=== PATIENT | male | born 1935 | race Caucasian/White ===

== ENCOUNTER 2016-07-08 11:03 | Emergency (ER) | payer MEDICARE, BC ==
[2016-07-08 11:25] VITALS: BP 148/64
--- NOTE | 2016-07-08 12:18 | ERNOTE ---
Lower Extremity HPI - Narrative Date of Service: 07/08/16 - General Lower Extremities Pain: foot: right - red and warm Time Seen by Provider: 07/08/16 11:40 Source: patient Exam Limitations: no limitations - Immun/Allergies/Home Medications Immunizations: IMMUNIZATION HX Immunizations Up to Date Yes History of Influenza Vaccine Yes Hx Pneumococcal Vaccination Yes Allergies/Adverse Reactions: Allergies Allergy/AdvReac Type Severity Reaction Status Date / Time No Known Allergies Allergy Verified 07/08/16 11:25 Home Medications: HOME MEDICATIONS Albuterol Sulfate [Albuterol Sulfate 0.63 MG/3ML] 0.63 mg IH Q4H PRN 06/12/12 [ Last Taken 06/12/12] Enalapril Maleate 10 mg PO HS 06/12/12 [Last Taken 06/12/12] Isosorbide Mononitrate [Imdur] 30 mg PO DAILY 06/12/12 [Last Taken 06/12/12] Simvastatin [Zocor] 40 mg PO HS 06/12/12 [Last Taken 06/12/12] clonazePAM [Klonopin] 1 mg PO HS PRN 06/12/12 [Last Taken 06/12/12] rOPINIRole HCL [Requip] 3 mg PO HS 06/12/12 [Last Taken 06/12/12] Furosemide [Lasix] 40 mg PO DAILY #30 tablet 06/15/12 [Last Taken Unknown] Potassium Chloride [K-Dur] 20 meq PO DAILY #30 tablet 06/15/12 [Last Taken Unknown] Lansoprazole [Prevacid] 30 mg PO BID 06/07/14 [Last Taken Unknown] Warfarin Sodium [Coumadin] 7 mg PO 3XW 06/07/14 [Last Taken Unknown] Warfarin Sodium [Coumadin] 9 mg PO SUTUTHSA 06/07/14 [Last Taken Unknown] glipiZIDE [Glucotrol] 10 mg PO BID 06/07/14 [Last Taken Unknown] Acetaminophen [Tylenol] 650 mg PO QID PRN #0 tablet 01/20/15 [Last Taken Unknown ] Aspirin [Aspirin Enteric Coated] 81 mg PO DAILY 02/14/16 [Last Taken Unknown] Multivitamin [One Daily Essential] 1 each PO DAILY 02/14/16 [Last Taken Unknown] Tamsulosin HCl 0.4 mg PO DAILY 02/14/16 [Last Taken Unknown] Ammonium Lactate 07/08/16 [Last Taken Unknown] Budesonide/Formoterol Fumarate [Symbicort 160-4.5 Mcg Inhaler] 2 puff IH DAILY 07/08/16 [Last Taken Unknown] Cephalexin Monohydrate [Keflex] 500 mg PO Q12H #14 cap 07/08/16 [Last Taken Unknown] Clotrimazole [Lotrimin Cream] 15 gm TP BID 07/08/16 [Last Taken Unknown] Docusate Sodium [Colace] 100 mg PO DAILY 07/08/16 [Last Taken Unknown] Ferrous Sulfate [Iron] 325 mg PO DAILY 07/08/16 [Last Taken Unknown] Fluticasone Propionate [Flovent Diskus] 50 mcg IH DAILY 07/08/16 [Last Taken Unknown] Nitroglycerin [Nitrostat] 0.4 mg SL Q5MIN PRN 07/08/16 [Last Taken Unknown] Probenecid/Colchicine [Probenecid-Colchicine Tabs] 1 tab PO BID 07/08/16 [Last Taken Unknown] Triamcinolone Acetonide [Kenalog 0.025%] 1 appl TP BID 07/08/16 [Last Taken Unknown] Zolpidem Tartrate [Ambien] 5 mg PO HS 07/08/16 [Last Taken Unknown] - History of Present Illness Narrative: 80-year-old male presents to the emergency room for right foot swelling with increased redness and warmth. States that it is tender. Stated that he woke up and noticed it this morning. Date (Duration): 07/08/16 Occurred: this morning Location of Incident: home Method of Injury: Reports: no apparent injury Loss of Consciousness: Reports: no loss of consciousness Associated Symptoms: Denies: unable to bear weight, snapping, popping sensation , weakness Other Injuries: Reports: none Subsequent Symptoms: Denies: numbness, motor loss Prior Treament: Reports: recently seen - was at his PCP yesterday and it was swollen but not red. Review of Systems - Review of Systems Constitutional: Present: no symptoms reported EYE: Present: no symptoms reported ENT: Present: no symptoms reported Respiratory: Present: no symptoms reported Cardiology: Present: no symptoms reported Gastrointestinal/Abdominal: Present: no symptoms reported Genitourinary: Present: no symptoms reported Musculoskeletal: Present: See HPI, joint swelling Skin: Present: See HPI, rash, change in color Neurological: Present: no symptoms reported Endocrine: Present: no symptoms reported Hematologic/Lymphatic: Present: no symptoms reported Psych: Present: no symptoms reported All Other Systems: All systems neg except as marked - Patient's Past Medical History Patient History - Medical: Diabetes Type 2 Patient History - Cardiac/Respiratory: CHF, CPAP/BiPAP Home Use Patient History - Cancer: Colon, Chemotherapy history Patient History - Surgical Procedures: Cataracts, Colon Resection, Coronary Bypass Surgery, Pacemaker, Other Patient History - Other: None - Family History Father Family History - Medical: Family History - Cardiac/Respiratory: Hypertension Brother Family History - Medical: , Diabetes Type 1 Family History - Cardiac/Respiratory: Other - Social History Living Situations: home Psych History: No pertinent hx Does anyone smoke in the home?: No Smoking Status: Former smoker Have you smoked in the past 12 months: No Alcohol Use: rarely Drug Use: none - Immunizations Immunizations Up to Date: Yes Hx Pneumococcal Vaccination: Yes History of Influenza Vaccine: Yes Physical Exam - Physical Exam Narrative: right ankle and top of foot is red, warm and swollen. Good pedal pulse and cap refill General Appearance: Present: alert, no apparent distress Eye Exam: Normal inspection: bilateral Ears, Nose, Throat: Present: normal ENT inspection, normal pharynx Neck: Present: normal inspection Respiratory: Present: no respiratory distress, normal breath sounds Cardiovascular/Chest: Present: regular rate, rhythm, normal peripheral pulses Gastrointestinal/Abdominal: Present: normal bowel sounds, soft Back Exam: Present: normal range of motion Extremity Exam: Present: normal except - - right ankle/foot red, warm and swollen. BLE Edema is normal for patient. , pedal edema Neurological Exam: Present: alert, oriented, normal mood/affect, no motor/ sensory deficits Skin Exam: Present: normal color, warm/dry, skin rash Lymphatic Exam: Present: no adenopathy ED Progress - Vital Signs Vital Signs: Vital Signs 07/08/16 11:22 Temperature 36.4 C L Pulse Rate 84 Respiratory 20 Rate Blood Pressure 148/64 O2 Sat by Pulse 94 Oximetry - Progress/Reassessment Chief Complaint: Lower Extremity Pain/ Injury Progress:: Improved Departure Clinical Impression: Cellulitis Qualifiers: Site of cellulitis: extremity Site of cellulitis of extremity: lower extremity Laterality: right Qualified Code(s): L03.115 - Cellulitis of right lower limb - Departure Disposition: Home Follow Up Needed Condition: Good Instructions: Cellulitis, Adult, [id number] Additional Instructions: Continue all previous home medication. Follow up with your doctor in the next 2- 3 days. Return to the emergency room is swelling increases, it becomes more painful or redness increases. Referrals: Kenny Uribe MD [Primary Care Provider] - Prescriptions: Cephalexin Monohydrate [Keflex] 500 mg PO Q12H #14 cap
== END 2016-07-08 12:21 | disposition home or self-care (01) ==
LOC: ER 11:03
DX: L03.115 Cellulitis of right lower limb (principal); Z85.038 Personal history of other malignant neoplasm of large intestine; E11.9 Type 2 diabetes mellitus without complications; I50.9 Heart failure, unspecified

== ENCOUNTER 2016-08-24 10:39 | Inpatient (IN) | payer MEDICARE, BC ==
--- OUTSIDE RECORDS SUMMARY | 2016-08-24 10:55 | XMS REPORT | Continuity of Care Document ---
:1935 Author Organization [facility] ([facility]) Address [address] [place] [address] Phone [phone] Care Team Providers Name Role Phone Kenny Hurley Primary Care Provider Unavailable Source Comments This disclosure is being made pursuant to the Care Everywhere program, applicable federal and state laws, and may not contain all informaitonavailable regarding this patient.[facility] ([facility]) Active Allergies and Adverse Reactions No Known Allergies Current Medications Prescription Sig. Disp. Refills Start Date End Date Status enalapril 10 mg tablet Take 10 mg by mouth Active daily. lansoprazole 30 mg Take 30 mg by mouth Active capsule daily. Ropinirole 2 mg Tb24 Take by mouth at Active bedtime. simvastatin 40 mg tablet Take 40 mg by mouth Active every evening. multivitamin (MULTIPLE Take 1 Tab by mouth Active VITAMIN) tablet daily. albuterol 2.5 mg/3 mL Use 3 mL by Active inhalation solution inhalation every 4 hours as needed. isosorbide mononitrate Take 15 mg by mouth Active 30 mg CR tablet Every morning. zolpiDEM 5 mg tablet Take by mouth at Active bedtime as needed. nitroglycerin 0.[address] 0.4 mg under Active tablet the tongue every 5 minutes as needed. furosemide 40 mg tablet Take 40 mg by mouth Active daily. potassium chloride 20 take 1 tablet 10/03/2012 Active mEq tablet (20MEQ) by oral route every day with food warfarin 5 mg tablet mng by PCP 03/01/2013 Active aspirin 81 mg EC tablet Take 81 mg by mouth Active daily. clonazePAM 1 mg tablet Take 1 mg by mouth Active at bedtime. glipiZIDE 5 mg tablet Take 10 mg by mouth Active 2 times daily with meals. colchicine-probenecid Take 1 tablet by Active 0.5-500 mg per tablet mouth 2 times daily. fluticasone 50 Use 2 Sprays into Active mcg/Actuation nasal both nostrils daily. spray tamsulosin 0.4 mg Take 0.4 mg by mouth Active capsule daily. budesonide-formoterol Use 2 Puffs by Active (SYMBICORT) 160-4.5 inhalation 2 times mcg/Actuation inhaler daily. ferrous sulfate 325 mg Take 325 mg by mouth Active (65 mg iron) tablet daily. 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 3 vessel CAD rec CABG) - 01/18/1996 CV SURGERY: CV Surgery (ORNELAS to LAD, SVG to OM, SVG to RPDA) - 01/20/1996 ECHO/MUGA: Echo (Normal EF, Mild TR) - 10/14/2006 Echo (Normal EF) - 03/05/2012 ELECTROPHYSIOLOGY: Holter (Rare PVCs, Sinus William, No correlation with symptoms) - 10/01/2004 Devices (AV pacemaker implant ([employer]).) - 02/14/2008 STRESS TESTS: Pers MPI (Normal EF, Equivocal Inferior Scar vs Artifact) - 08/19/2007 Clive MPI (Normal EF, No ischemia. Apical thinning) - 03/05/2012 Hx of CABG COPD (chronic obstructive pulmonary disease) Hyperlipidemia Hypertension Diabetes mellitus Chronic atrial fibrillation, with slow ventricular response H/O: GI bleed Immunizations Name Dates Previously Given Next Due Influenza, unspecified 10/28/2006,11/19/2005 Pneumococcal, unspecified 10/28/2006,11/19/2005 Social History Tobacco Use Types Packs/Day Years Used Date Former Smoker Cigarettes 0.25 1 Alcohol Use Drinks/Week oz/Week Comments No Last Filed Vital Signs Vital Sign Reading Time Taken Blood Pressure 122/44 05/11/2016 9:56 AM EQUIPMENT VALIDATION SPECIALIST Pulse 46 05/11/2016 9:56 AM EQUIPMENT VALIDATION SPECIALIST Temperature 35.5 C (95.9 F) 04/24/2012 9:53 AM EQUIPMENT VALIDATION SPECIALIST Respiratory Rate 16 08/05/2015 2:59 PM CDT Height 1.803 m (5' 10.98") 05/11/2016 9:56 AM EQUIPMENT VALIDATION SPECIALIST Weight 93.895 kg (207 lb) 05/11/2016 9:56 AM EQUIPMENT VALIDATION SPECIALIST Body Mass Index 28.88 05/11/2016 9:56 AM EQUIPMENT VALIDATION SPECIALIST Oxygen Saturation - - Plan of Care Date Type Specialty Providers Description 10/05/2016 Appointment Heart and Vascular Gennaro Shelby MD Chief Comp: Patient [address] [place] [address] Visit [phone] (Fax) 05/19/2017 Appointment Heart and Vascular Zarina Duenas MD Chief Comp: Patient [address] [place] [address] Visit [phone] (Fax) Health Maintenance Due Date Last Done Comments Hepatitis B Vaccine (1 of 3 - Primary 1935 Series) Tdap Vaccine 1946 DIABETIC: Cholesterol 09/18/1955 Diabetic: Hdl 09/18/1955 DIABETIC: Hemoglobin A1C 09/18/1955 Diabetic: Ldl 09/18/1955 DIABETIC: Microalbumin 09/18/1955 DIABETIC: Triglycerides 09/18/1955 Td Vaccine 09/18/1955 Colonoscopy 1987 Zoster Vaccine 1997 Pneumococcal Vaccine (1 of 2 - PCV13) 2002 DIABETIC: Foot Exam 04/07/2015 DIABETIC: Retinal Eye Exam 04/07/2015 Influenza Vaccine: Seasonal Completed 10/28/2006, 11/19/2005 Results from Last 3 Months Not on file
[2016-08-24 11:06] LABS: Hematocrit 39.5 % (42.0-52.0); Hemoglobin 13.2 gm/dL (13.5-18.0); Mean Cell Volume 85.3 fl (78-100); Mean Corpuscular Hemoglobin 28.5 pg (27-31); Mean Corpuscular Hgb Conc 33.4 g/dl (32-36); Mean Platelet Volume 10.1 fl (6.0-9.5); Neutrophil # 14.6 K/mm3 (1.3-6.0); Neutrophil % 88.9 % (42-75.0); Platelet Count 137 K/mm3 (150-450); Red Blood Count 4.63 M/mm3 (4.7-6.0); Red Cell Distribution Width 13.5 % (11.5-14.0); White Blood Count 16.4 K/mm3 (4.0-10.5)
[2016-08-24 11:09] LABS: Urine Bilirubin Negative (NEGATIVE); Urine Blood 250 /ul (NEGATIVE); Urine Ketone Negative (NEGATIVE); Urine Nitrite Negative (NEGATIVE); Urine Protein 100 mg/dL (NEGATIVE); Urine Urobilinogen Normal (NORMAL)
[2016-08-24] MEDS ORDERED: ONDANSETRON 4 MG TAB.RAPDIS PO ONE (11:10)
[2016-08-24] MEDS ORDERED: NALBUPHINE HCL 20 MG/ML AMPUL IM ONE (11:10)
[2016-08-24] MEDS ORDERED: NALBUPHINE HCL 20 MG/ML AMPUL ONE (11:20)
[2016-08-24] MEDS ORDERED: ONDANSETRON 4 MG TAB.RAPDIS ONE (11:20)
[2016-08-24 11:22] LABS: Urine Appearance Cloudy; Urine Bacteria 1+; Urine Color Dark Yellow; Urine RBC >50 /hpf (0-5); Urine WBC 25-50 /hpf (0-5)
[2016-08-24 11:23] LABS: Prothrombin Time (Patient) 15.8 Seconds (9.4-11.4)
--- NOTE | 2016-08-24 11:23 | ERNOTE ---
ER Male HPI Date of Service: 08/24/16 Stated Complaint: BLOOD IN URINE Time Seen by Provider: 08/24/16 10:49 Source: patient Exam Limitations: no limitations Immunizations: IMMUNIZATION HX Immunizations Up to Date Yes History of Influenza Vaccine Yes Hx Pneumococcal Vaccination Yes Allergies/Adverse Reactions: Allergies No Known Allergies Allergy (Verified 08/24/16 10:50) Home Medications: HOME MEDICATIONS Albuterol Sulfate [Albuterol Sulfate 0.63 MG/3ML] 0.63 mg IH Q4H PRN 06/12/12 [ Last Taken 06/12/12] Enalapril Maleate 10 mg PO HS 06/12/12 [Last Taken 06/12/12] Isosorbide Mononitrate [Imdur] 30 mg PO DAILY 06/12/12 [Last Taken 06/12/12] Simvastatin [Zocor] 40 mg PO HS 06/12/12 [Last Taken 06/12/12] clonazePAM [Klonopin] 1 mg PO HS PRN 06/12/12 [Last Taken 06/12/12] rOPINIRole HCL [Requip] 3 mg PO HS 06/12/12 [Last Taken 06/12/12] Furosemide [Lasix] 40 mg PO DAILY #30 tablet 06/15/12 [Last Taken Unknown] Potassium Chloride [K-Dur] 20 meq PO DAILY #30 tablet 06/15/12 [Last Taken Unknown] Lansoprazole [Prevacid] 30 mg PO BID 06/07/14 [Last Taken Unknown] Warfarin Sodium [Coumadin] 7 mg PO 3XW 06/07/14 [Last Taken Unknown] Warfarin Sodium [Coumadin] 9 mg PO SUTUTHSA 06/07/14 [Last Taken Unknown] glipiZIDE [Glucotrol] 10 mg PO BID 06/07/14 [Last Taken Unknown] Acetaminophen [Tylenol] 650 mg PO QID PRN #0 tablet 01/20/15 [Last Taken Unknown ] Aspirin [Aspirin Enteric Coated] 81 mg PO DAILY 02/14/16 [Last Taken Unknown] Multivitamin [One Daily Essential] 1 each PO DAILY 02/14/16 [Last Taken Unknown] Tamsulosin HCl 0.4 mg PO DAILY 02/14/16 [Last Taken Unknown] Ammonium Lactate 07/08/16 [Last Taken Unknown] Budesonide/Formoterol Fumarate [Symbicort 160-4.5 Mcg Inhaler] 2 puff IH DAILY 07/08/16 [Last Taken Unknown] Clotrimazole [Lotrimin Cream] 15 gm TP BID 07/08/16 [Last Taken Unknown] Docusate Sodium [Colace] 100 mg PO DAILY 07/08/16 [Last Taken Unknown] Ferrous Sulfate [Iron] 325 mg PO DAILY 07/08/16 [Last Taken Unknown] Fluticasone Propionate [Flovent Diskus] 50 mcg IH BID 07/08/16 [Last Taken Unknown] Nitroglycerin [Nitrostat] 0.4 mg SL Q5MIN PRN 07/08/16 [Last Taken Unknown] Probenecid/Colchicine [Probenecid-Colchicine Tabs] 1 tab PO BID 07/08/16 [Last Taken Unknown] Zolpidem Tartrate [Ambien] 5 mg PO HS 07/08/16 [Last Taken Unknown] Calcium Carbonate [Calcium] 500 mg PO QID 08/24/16 [Last Taken Unknown] Magnesium 250 mg PO QID 08/24/16 [Last Taken Unknown] Triamcinolone Acetonide [Kenalog 0.5%] 1 appl TP BID 08/24/16 [Last Taken Unknown] - History of Present Illness Narrative: Pt. comes in with c/o being shaky, not feeling well, having frequency, and LUQ/ L chest pain, and hematuria for 12 hours. Pt. also states that he had a fever that he treated with motrin an hour ago. Pt. denies any other chest pain, SOB, rhinorrhea, ear pain, sore throat, muscle aches, or aggravating/ alleviating factors. Review of Systems - Review of Systems Constitutional: Present: fever, fatigue EYE: Present: no symptoms reported ENT: Present: no symptoms reported. Absent: nose congestion Respiratory: Present: no symptoms reported. Absent: shortness of breath, cough , wheezing Cardiology: Present: chest pain - L loower. Absent: palpitations, edema Gastrointestinal/Abdominal: Present: abdominal pain - LUQ. Absent: nausea, vomiting, diarrhea Genitourinary: Present: no symptoms reported Musculoskeletal: Present: no symptoms reported. Absent: back pain, joint pain Skin: Present: no symptoms reported Neurological: Present: weakness - generalized, tremors. Absent: headache, dizziness/light-headedness, numbness, tingling All Other Systems: All systems neg except as marked - Patient's Past Medical History Patient History - Medical: Diabetes Type 2 Patient History - Cardiac/Respiratory: CHF, CPAP/BiPAP Home Use, Sleep Apnea Patient History - Cancer: Colon, Chemotherapy history Patient History - Surgical Procedures: Cataracts, Colon Resection, Coronary Bypass Surgery, Pacemaker, Other Patient History - Other: None - Family History Father Family History - Medical: Family History - Cardiac/Respiratory: Hypertension Brother Family History - Medical: , Diabetes Type 1 Family History - Cardiac/Respiratory: Other - Social History Living Situations: home Psych History: No pertinent hx Does anyone smoke in the home?: No Alcohol Use: rarely Drug Use: none - Immunizations Immunizations Up to Date: Yes Hx Pneumococcal Vaccination: Yes History of Influenza Vaccine: Yes Physical Exam - Physical Exam General Appearance: Present: wd/wn, alert, no apparent distress Eye Exam: Normal inspection: bilateral, PERRL: bilateral, EOMI: bilateral Ears, Nose, Throat: Present: normal ENT inspection, normal pharynx Neck: Present: normal inspection, nontender. Absent: lymphadenopathy (R), lymphadenopathy (L) Respiratory: Present: no respiratory distress, normal breath sounds, no accessory muscle use, chest nontender, lungs clear Cardiovascular/Chest: Present: regular rate, rhythm, no murmur, normal peripheral pulses Gastrointestinal/Abdominal: Present: nondistended, soft, no organomegaly, tenderness - LUQ Back Exam: Present: normal inspection, normal range of motion, no CVA tenderness , no vertebral tenderness Extremity Exam: Present: normal inspection, non-tender, normal range of motion, no edema Neurological Exam: Present: alert, oriented, normal mood/affect, motor weakness - generalized Skin Exam: Present: cool/dry, pallor ED Progress - Date and Time Seen: Date and Time: 08/24/16 12:[address] Duenas and she recommends not transferring to other facility as she does not feel that this is terribly acute but that this should be ruled out. Discussed case with Dr Hurley and he agrees to accept pt. for admission to rule out SC and also for serious infection. 08/24/16 13:04 Pt. took a325 mg aspirin this am - Results and Orders Patient's Lab Results:: I have reviewed the patient's lab results. - Vital Signs Patient's Vital Signs:: I have reviewed the patient's vital signs. Vital Signs: Vital Signs 08/24/16 10:46 Temperature 37.1 C Pulse Rate 81 Respiratory 16 Rate Blood Pressure 203/67 - EKG EKG: other - sinus rhythm with ST depression - CT/Ultrasound CT/Ultrasound Narrative: CT abd without evidence of stone but with probable mass of L kidney and cystitis or mass of bladder. - Progress/Reassessment Chief Complaint: Genitourinary Problem Progress:: Unchanged Departure Clinical Impression: Cystitis Chest pain Qualifiers: Chest pain type: unspecified Qualified Code(s): R07.9 - Chest pain, unspecified Diabetes Qualifiers: Diabetes mellitus type: type 2 Diabetes mellitus complication status: without complication Diabetes mellitus retirement insulin use: without terminal make up operator use Qualified Code(s): E11.9 - Type 2 diabetes mellitus without complications - Departure Disposition: [facility] Referrals: Kenny Uribe MD [Primary Care Provider] -
[2016-08-24 11:24] LABS: INR 1.52 INR (0.90-1.10); Partial Thrombolplastin Time 32.7 Seconds (24-32)
[2016-08-24 11:26] LABS: ALT 30 U/L (19-67); AST 26 U/L (0-48); Albumin * 3.8 gm/dl (3.4-5.0); Alkaline Phosphatase * 114 U/L (50-170); BUN/Creatinine Ratio 26.9 (9.0-21.6); Bilirubin, Total 0.5 mg/dL (0.0-1.1); Blood Urea Nitrogen 25 mg/dL (6-23); Ca. Corrected For Albumin 8.5 mg/dL (8.4-10.2); Calcium * 8.7 mg/dL (7.9-10.9); Carbon Dioxide 29.5 mmol/L (24-32.6); Chloride 99 mmol/L (97-106); Glucose * 191 mg/dL (70-110); Potassium 4.5 mmol/L (3.4-4.6); Sodium 135 mmol/L (132-142); Total Protein 7.4 gm/dL (6.2-8.2)
[2016-08-24 11:27] LABS: Troponin I Less than 0.017 ng/ml (0.00-0.10)
[2016-08-24] MEDS ORDERED: NORMAL SALINE 500 ML IV ONE (11:39)
[2016-08-24 12:40] LABS: Hemoglobin A1C 8.1 % (4.00-6.0)
[2016-08-24] MEDS ORDERED: CIPROFLOXACIN LACTATE/D5W 400 MG/200 ML BAG IV SCH ×2 (13:00)
--- OUTSIDE RECORDS SUMMARY | 2016-08-24 13:03 | XMS REPORT | Continuity of Care Document ---
:1935 Author Organization [facility] ([facility]) Address [address] [place] [address] Phone [phone] Care Team Providers Name Role Phone Kenny Hurley Primary Care Provider Unavailable Source Comments This disclosure is being made pursuant to the Care Everywhere program, applicable federal and state laws, and may not contain all informaitonavailable regarding this patient.[facility] ([facility]) Active Allergies and Adverse Reactions No Known [...] Hematuria, gross 10/22/2011 Cardiac pacemaker in situ, [employer] Coronary artery disease Overview: Formatting of this note may be different from the original. 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 3 vessel CAD rec CABG) - 01/18/1996 CV SURGERY: CV Surgery (ORNELAS to LAD, SVG to OM, SVG to RPDA) - 01/20/1996 ECHO/MUGA: Echo (Normal EF, Mild TR) - 10/14/2006 Echo (Normal EF) - 03/05/2012 ELECTROPHYSIOLOGY: Holter (Rare PVCs, Sinus William, No correlation with symptoms) - 10/01/2004 Devices (AV pacemaker implant ([employer]).) - 02/14/2008 STRESS TESTS: Pers MPI [...] Taken Blood Pressure 122/44 05/11/2016 9:56 AM SEQUINS SPOOLER Pulse 46 05/11/2016 9:56 AM SEQUINS SPOOLER Temperature 35.5 C (95.9 F) 04/24/2012 9:53 AM SEQUINS SPOOLER Respiratory Rate 16 08/05/2015 2:59 PM CDT Height 1.803 m (5' 10.98") 05/11/2016 9:56 AM SEQUINS SPOOLER Weight 93.895 kg (207 lb) 05/11/2016 9:56 AM SEQUINS SPOOLER Body Mass Index 28.88 05/11/2016 9:56 AM SEQUINS SPOOLER Oxygen Saturation - - Plan of Care Date Type Specialty Providers Description 10/05/2016 Appointment Heart and Vascular Gnenaro Shelby MD Chief Comp: Patient [address] [place] [address] Visit [phone] (Fax) 05/19/2017 Appointment Heart and Vascular Zarina Duenas MD Chief Comp: Patient [address] [place] [address] Visit [phone] (Fax) Health Maintenance Due Date Last Done [...] Retinal Eye Exam 04/07/2015 Influenza Vaccine: Seasonal (Season Ended) 2016 10/28/2006, 11/19/2005 Results from Last 3 Months Not on file
[2016-08-24] MEDS: NORMAL SALINE 1,000 ML IV PRN ×3 (14:41→22:30)
[2016-08-24] MEDS ORDERED: NITROGLYCERIN 0.4 MG/TAB BTL SL PRN (17:43)
[2016-08-24] MEDS ORDERED: PROBENECID PO PRN (17:43)
[2016-08-24] MEDS ORDERED: TRIAMCINOLONE ACETONIDE 15 APPL TUBE TP PRN (17:43)
[2016-08-24] MEDS ORDERED: DOCUSATE SODIUM 100 MG CAPSULE PO PRN (17:43)
[2016-08-24] MEDS ORDERED: COLCHICINE PO PRN (17:43)
[2016-08-24] MEDS ORDERED: WARFARIN SODIUM 4 MG TABLET PO SCH (17:45)
[2016-08-24] MEDS ORDERED: COLCHICINE 0.6 MG TABLET PO PRN (18:12)
[2016-08-24] MEDS ORDERED: PROBENECID 500 MG TABLET PO PRN (18:13)
--- NOTE | 2016-08-24 18:13 | HP ---
Chief Complaint - Chief Complaint Date of Service: 08/24/16 Time of Service: 22:10 Chief Complaint: Febrile Illness History of Present Illness: This is a 80 y/o diabetic man with a history of TURP who came in to the [facility] ER with a complaint of being shaky, not feeling well, having frequency of uriantion , and abdominal and left lower chest pain, and hematuria for 12 hours. He also states that he had a fever of 102 last night he treated with motrin about an hour prior to coming to the [facility] ER. He denies any other chest pain, SOB, rhinorrhea, ear pain, sore throat, muscle aches, or aggravating/ alleviating factors. He noticed some blood in the urine last night. His CAT scan of the abomen MIGHT be suggestive of left pyelonephritis. His wbc count is modestly elevated. His microscopic urine is consistent with infection. He has been diaphoretic and has had shaking chills. He was somewhat disoriented through the night. Just now his respiratory rate was 32 and his temp 39.5. He is not sexually active. - Patient's Past Medical History Patient History - Medical: Diabetes Type 2 Patient History - Cardiac/Respiratory: CHF, CPAP/BiPAP Home Use, Sleep Apnea Patient History - Cancer: Colon, Chemotherapy history Patient History - Surgical Procedures: Cataracts, Colon Resection, Coronary Bypass Surgery, Pacemaker, Other Patient History - Other: None - Family History Father Family History - Medical: Family History - Cardiac/Respiratory: Hypertension Brother Family History - Medical: , Diabetes Type 1 Family History - Cardiac/Respiratory: Other - Social History Living Situations: home Abuse History: No History of abuse Psych History: No pertinent hx Does anyone smoke in the home?: No Smoking Status: Never smoker Have you smoked in the past 12 months: No Do you dip or chew tobacco: No Patient requests Smoking Cessation Consult: No Initiate information on Smoking Cessation: No Alcohol Use: rarely Drug Use: none - Immunizations Immunizations Up to Date: Yes Hx Pneumococcal Vaccination: Yes History of Influenza Vaccine: Yes Review Of Systems (GEN) - Review of Systems Generalized/Overall Review: Present: Fever, Malaise, Diaphoresis EENTM: Present: No Symptoms Reported Respiratory: Present: No Symptoms Reported Cardiac: Present: No Symptoms Reported Abdominal: Present: Nausea, Abdominal Pain Genitourinary: Present: Hematuria Musculoskeletal: Present: No Symptoms Reported Neurological: Present: No Symptoms Reported Skin: Present: No Symptoms Reported Endocrine: Present: No Symptoms Reported Misc: All systems neg except as marked Immunizations: IMMUNIZATION HX Immunizations Up to Date Yes History of Influenza Vaccine Yes Hx Pneumococcal Vaccination Yes Allergies/Adverse Reactions: Allergies Allergy/AdvReac Type Severity Reaction Status Date / Time No Known Allergies Allergy Verified 08/24/16 14:24 Home Medications: HOME MEDICATIONS Albuterol Sulfate [Albuterol Sulfate 0.63 MG/3ML] 0.63 mg IH Q4H PRN 06/12/12 [ Last Taken 06/12/12] Enalapril Maleate 10 mg PO HS 06/12/12 [Last Taken 06/12/12] Simvastatin [Zocor] 40 mg PO HS 06/12/12 [Last Taken 06/12/12] clonazePAM [Klonopin] 1 mg PO HS 06/12/12 [Last Taken 06/12/12] Furosemide [Lasix] 40 mg PO DAILY #30 tablet 06/15/12 [Last Taken Unknown] Potassium Chloride [K-Dur] 20 meq PO DAILY #30 tablet 06/15/12 [Last Taken Unknown] Lansoprazole [Prevacid] 30 mg PO BID 06/07/14 [Last Taken Unknown] Warfarin Sodium [Coumadin] 7 mg PO MOWEFR 06/07/14 [Last Taken Unknown] Warfarin Sodium [Coumadin] 9 mg PO SUTUTHSA 06/07/14 [Last Taken Unknown] glipiZIDE [Glucotrol] 10 mg PO BIDAC 06/07/14 [Last Taken Unknown] Acetaminophen [Tylenol] 650 mg PO QID PRN #0 tablet 01/20/15 [Last Taken Unknown ] Aspirin [Aspirin Enteric Coated] 81 mg PO DAILY 02/14/16 [Last Taken Unknown] Multivitamin [One Daily Essential] 1 each PO DAILY 02/14/16 [Last Taken Unknown] Ammonium Lactate 1 appl TP BID 07/08/16 [Last Taken Unknown] Budesonide/Formoterol Fumarate [Symbicort 160-4.5 Mcg Inhaler] 2 puff IH BID [Last Taken Unknown] Clotrimazole [Lotrimin Cream] 15 gm TP BID 07/08/16 [Last Taken Unknown] Docusate Sodium [Colace] 200 mg PO HS PRN 07/08/16 [Last Taken Unknown] Ferrous Sulfate [Iron] 325 mg PO DAILY 07/08/16 [Last Taken Unknown] Fluticasone Propionate [Flovent Diskus] 50 mcg IH BID 07/08/16 [Last Taken Unknown] Nitroglycerin [Nitrostat] 0.4 mg SL Q5MIN PRN 07/08/16 [Last Taken Unknown] Zolpidem Tartrate [Ambien] 5 mg PO HS 07/08/16 [Last Taken Unknown] Calcium Carbonate [Calcium] 1,250 mg PO QID 08/24/16 [Last Taken Unknown] Isosorbide Mononitrate [Isosorbide Mononitrate ER] 15 mg PO DAILY 08/24/16 [ Last Taken Unknown] Magnesium 250 mg PO QID 08/24/16 [Last Taken Unknown] Probenecid/Colchicine [Probenecid-Colchicine Tabs] 1 tab PO BID PRN 08/24/16 [ Last Taken Unknown] Ropinirole HCl 5 mg PO HS 08/24/16 [Last Taken Unknown] Tamsulosin HCl 0.4 mg PO DAILY 08/24/16 [Last Taken Unknown] Triamcinolone Acetonide [Kenalog 0.025%] 1 appl TP BID PRN 08/24/16 [Last Taken Unknown] Exam - Exam Vital Signs: Vital Signs - Last Taken Selected Entries 08/24/16 12:57 Pulse Rate 72 Respiratory 19 Rate Blood Pressure 154/59 O2 Sat by Pulse 94 Oximetry Oxygen Delivery Room Air Method Constitutional: Present: Alert, Oriented x3, Cooperative, Well developed, Well nourished, No distress Eye Exam: bilateral eye: normal inspection, PERRL, EOMI Neck: Present: normal inspection Back Exam: Present: normal inspection, CVA tenderness (L) Respiratory: Present: lungs clear, no respiratory distress Cardiovascular/Chest: Present: normal peripheral pulses, regular rate, rhythm, no chest tenderness Abdomen: Present: Normal bowel sounds, soft, nontender, nondistended, no rebound tenderness, no hepatospenomegaly, no masses Extremity: Present: normal inspection, no pedal edema Skin Exam: Present: normal color, warm/dry, no cyanosis Neurologic: Present: alert, oriented x 3 Appearance: Present: appropriate appearance, appropriate insight, neat Eye contact: Present: cooperative, good eye contact, normal speech Thoughts: Present: normal thought pattern Diagnostic Studies: Laboratory Results WBC 16.4 K/mm3 (4.0-10.5) H 08/24/16 11:00 RBC 4.63 M/mm3 (4.7-6.0) L 08/24/16 11:00 Hgb 13.2 gm/dL (13.5-18.0) L 08/24/16 11:00 Hct 39.5 % (42.0-52.0) L 08/24/16 11:00 MCV 85.3 fl (78-100) 08/24/16 11:00 MCH 28.5 pg (27-31) 08/24/16 11:00 MCHC 33.4 g/dl (32-36) 08/24/16 11:00 RDW 13.5 % (11.5-14.0) 08/24/16 11:00 Plt Count 137 K/mm3 (150-450) L 08/24/16 11:00 MPV 10.1 fl (6.0-9.5) H 08/24/16 11:00 Immature Gran % (Auto) 0.50 % (0.001-0.429) H 08/24/16 11:00 Immature Gran # (Auto) 0.08 K/mm3 (0.000-0.0310) H 08/24/16 11:00 Neutrophils % 88.9 % (42-75.0) H 08/24/16 11:00 Lymphocytes % 4.8 % (20-51) L 08/24/16 11:00 Monocytes % 5.2 % (0.0-9) 08/24/16 11:00 Eosinophils % 0.4 % (0.0-3.0) 08/24/16 11:00 Basophils % 0.2 % (0.0-1.0) 08/24/16 11:00 Nucleated RBC % 0.0 k/mm3 (0-1) 08/24/16 11:00 Neutrophils # 14.6 K/mm3 (1.3-6.0) H 08/24/16 11:00 Lymphocytes # 0.8 k/mm3 (1.5-3.5) L 08/24/16 11:00 Monocytes # 0.9 k/mm3 (0.0-1.0) 08/24/16 11:00 Eosinophils # 0.1 k/mm3 (0.0-0.7) 08/24/16 11:00 Absolute Basophils 0.0 k/mm3 (0.0-0.1) 08/24/16 11:00 PT 15.8 Seconds (9.4-11.4) H 08/24/16 11:00 INR (Anticoag Therapy) 1.52 INR (0.90-1.10) H 08/24/16 11:00 PTT (Mary Grace) 32.7 Seconds (24-32) H 08/24/16 11:00 Sodium 135 mmol/L (132-142) 08/24/16 11:00 Plasma Sodium 136 mmol/L (130-142) 08/24/16 11:00 Potassium 4.5 mmol/L (3.4-4.6) 08/24/16 11:00 Chloride 99 mmol/L (97-106) 08/24/16 11:00 Carbon Dioxide 29.5 mmol/L (24-32.6) 08/24/16 11:00 Anion Gap 11.0 mmol/L (6.8-13.8) 08/24/16 11:00 BUN 25 mg/dL (6-23) H 08/24/16 11:00 Creatinine 0.93 mg/dL (0.4-1.4) 08/24/16 11:00 Est GFR (Non-Af Amer) 84 mL/min (60-130) D 08/24/16 11:00 BUN/Creatinine Ratio 26.9 (9.0-21.6) H 08/24/16 11:00 Random Glucose 191 mg/dL (70-110) H 08/24/16 11:00 Mean Blood Glucose 184 mg/dL 08/24/16 11:00 Hemoglobin A1c 8.1 % (4.00-6.0) H 08/24/16 11:00 Lactic Acid, Venous 1.4 mmol/L (0.4-1.9) 08/24/16 11:00 Calcium 8.7 mg/dL (7.9-10.9) 08/24/16 11:00 Calcium Adj for Albumin 8.5 mg/dL (8.4-10.2) 08/24/16 11:00 Total Bilirubin 0.5 mg/dL (0.0-1.1) 08/24/16 11:00 AST 26 U/L (0-48) 08/24/16 11:00 ALT 30 U/L (19-67) 08/24/16 11:00 Alkaline Phosphatase 114 U/L (50-170) 08/24/16 11:00 Troponin I 0.031 ng/ml (0.00-0.10) 08/24/16 17:02 Total Protein 7.4 gm/dL (6.2-8.2) 08/24/16 11:00 Albumin 3.8 gm/dl (3.4-5.0) 08/24/16 11:00 Urine Color Dark yellow 08/24/16 11:00 Urine Appearance Cloudy 08/24/16 11:00 Urine pH 5.0 pH (5.0-7.0) 08/24/16 11:00 Ur Specific [place] 1.020 SP.GR. (1.005-1.030) 08/24/16 11:00 Urine Protein 100 mg/dL (NEGATIVE) H 08/24/16 11:00 Urine Glucose (UA) Negative mg/dL (NEGATIVE) 08/24/16 11:00 Urine Ketones Negative mg/dL (NEGATIVE) 08/24/16 11:00 Urine Blood 250 /ul (NEGATIVE) H 08/24/16 11:00 Urine Nitrate Negative (NEGATIVE) 08/24/16 11:00 Urine Bilirubin Negative mg/dl (NEGATIVE) 08/24/16 11:00 Prot Sulfosalicylic Acd 3+ mg/dL (0) H 08/24/16 11:00 Urine Urobilinogen Normal EU/dl (NORMAL) 08/24/16 11:00 Ur Leukocyte Esterase 100 /ul (NEGATIVE) H 08/24/16 11:00 Urine RBC >50 /hpf (0-5) H 08/24/16 11:00 Urine WBC 25-50 /hpf (0-5) H 08/24/16 11:00 Ur Epithelial Cells 5-10 /hpf (0-5) H 08/24/16 11:00 Urine Bacteria 1+ (NONE) H 08/24/16 11:00 Urine Culture Comments Culture to follow 08/24/16 11:00 Assessment/Plan - Narrative Narrative: IV antibiotics. Fluids. Wait for cultures. Follow labs. Estimate 3 days in hospital - Assessment/Plan (1) Pyelonephritis Assessment: Follow labs. await cultures. IV antibiotics. Problem: Acute (2) Diabetes Problem: Chronic Qualifiers: Diabetes mellitus type: type 2 Diabetes mellitus complication status: without complication Diabetes mellitus care home insulin use: without care home use Qualified Code(s): E11.9 - Type 2 diabetes mellitus without complications (3) Afib Problem: Chronic (4) BPH (benign prostatic hyperplasia) Problem: Chronic (5) CHF (congestive heart failure) Problem: Chronic (6) HTN (hypertension) Problem: Chronic (7) BENJAMIN (obstructive sleep apnea) Problem: Chronic (8) Pulmonary hypertension Problem: Chronic
[2016-08-24] MEDS: WARFARIN SODIUM 5 MG, WARFARIN SODIUM 4 MG PO SCH ×2 (18:59)
[2016-08-24] MEDS: ENOXAPARIN SODIUM 40 MG/0.4 ML SYRG SC SCH (18:59)
[2016-08-24] MEDS: BUDESONIDE 0.5 MG/2 ML VIAL.NEB IH SCH (20:57)
[2016-08-24] MEDS ORDERED: ENALAPRIL MALEATE 5 MG TABLET PO SCH (21:00)
[2016-08-24] MEDS: ACETAMINOPHEN 325 MG TABLET PO PRN (21:13)
[2016-08-24] MEDS: FLUTICASONE/SALMETEROL 14 PUFF DISK.W.DEV IH SCH (21:14)
[2016-08-24] MEDS: rOPINIRole HCL 1 MG TABLET PO SCH (21:15)
[2016-08-24] MEDS: MAGNESIUM OXIDE 400 MG TABLET PO SCH (21:16)
[2016-08-24] MEDS: CALCIUM CARBONATE 500 MG TAB.CHEW PO SCH (21:17)
[2016-08-24] MEDS: CLOTRIMAZOLE 15 APPL TUBE TP SCH (21:19)
[2016-08-24] MEDS: PANTOPRAZOLE SODIUM 40 MG TABLET.EC PO SCH (21:20)
[2016-08-24] MEDS: SIMVASTATIN 40 MG TABLET PO SCH (21:20)
[2016-08-24] MEDS: AMMONIUM LACTATE 225 APPL BTL TP SCH (21:21)
[2016-08-24] MEDS: clonazePAM 1 MG TABLET PO SCH (21:24)
[2016-08-24] MEDS: ZOLPIDEM TARTRATE 5 MG TABLET PO SCH (21:24)
[2016-08-24] MEDS: ALBUTEROL SULFATE 2.5 MG/3 ML VIAL.NEB IH PRN (21:42)
[2016-08-24] MEDS ORDERED: FUROSEMIDE 10 MG/ML VIAL IV ONE (23:56)
--- NOTE | 2016-08-25 00:38 | PN ---
Progess Note - Interim Narrative: 08/25/16 00:37 report received that pt's sbp 87-90. 1L ns bolus ordered off of sepsis bolus order. sg
[2016-08-25] MEDS: NORMAL SALINE 1,000 ML IV PRN ×3 (01:13→13:07)
[2016-08-25 04:17] LABS: Hematocrit 35.2 % (42.0-52.0); Hemoglobin 11.3 gm/dL (13.5-18.0); Mean Cell Volume 88.2 fl (78-100); Mean Corpuscular Hemoglobin 28.3 pg (27-31); Mean Corpuscular Hgb Conc 32.1 g/dl (32-36); Mean Platelet Volume 10.9 fl (6.0-9.5); Platelet Count 121 K/mm3 (150-450); Red Blood Count 3.99 M/mm3 (4.7-6.0); Red Cell Distribution Width 14.1 % (11.5-14.0); White Blood Count 25.1 K/mm3 (4.0-10.5)
[2016-08-25 04:22] LABS: Total Cells Counted 100
[2016-08-25 04:33] LABS: Hypersegmented Polys 2+; Monocyte 5 % (0-9); Neutrophil 84 % (42-75); Neutrophil # 21.1 K/mm3 (1.3-6.0); Platelet Estimate Normal (NORMAL); Toxic Granulation 2+
[2016-08-25 04:34] LABS: Lymphocyte 11 % (20-51)
[2016-08-25 04:39] LABS: Albumin * 2.7 gm/dl (3.4-5.0); Anion Gap 13.7 mmol/L (6.8-13.8); BUN/Creatinine Ratio 20.6 (9.0-21.6); Bilirubin, Total 0.6 mg/dL (0.0-1.1); Ca. Corrected For Albumin 8.3 mg/dL (8.4-10.2); Calcium * 7.6 mg/dL (7.9-10.9); Carbon Dioxide 23.3 mmol/L (24-32.6); Total Protein 5.8 gm/dL (6.2-8.2)
[2016-08-25] MEDS: BUDESONIDE 0.5 MG/2 ML VIAL.NEB IH SCH ×2 (06:01→18:21)
[2016-08-25] MEDS: glipiZIDE 10 MG TABLET PO SCH ×2 (07:11→17:08)
[2016-08-25] MEDS: PANTOPRAZOLE SODIUM 40 MG TABLET.EC PO SCH ×2 (07:11→20:59)
[2016-08-25] MEDS: INSULIN LISPRO 100 UNITS/ML VIAL SC SCH ×4 (07:15→21:09)
[2016-08-25] MEDS ORDERED: POTASSIUM CHLORIDE 20 MEQ TABLET.SA PO SCH (09:00)
[2016-08-25] MEDS: FLUTICASONE/SALMETEROL 14 PUFF DISK.W.DEV IH SCH ×2 (09:06→20:56)
[2016-08-25] MEDS: TAMSULOSIN HCL 0.4 MG CAP.SR.24H PO SCH (09:07)
[2016-08-25] MEDS: FERROUS SULFATE 325 MG TABLET PO SCH (09:07)
[2016-08-25] MEDS: ISOSORBIDE MONONITRATE 30 MG TAB.SR.24H PO SCH (09:07)
[2016-08-25] MEDS: ASPIRIN 81 MG TABLET.DR PO SCH (09:07)
[2016-08-25] MEDS: CLOTRIMAZOLE 15 APPL TUBE TP SCH ×2 (09:08→21:01)
[2016-08-25] MEDS: FUROSEMIDE 40 MG TABLET PO SCH (09:08)
[2016-08-25] MEDS: MAGNESIUM OXIDE 400 MG TABLET PO SCH ×4 (09:08→20:59)
[2016-08-25] MEDS: AMMONIUM LACTATE 225 APPL BTL TP SCH ×2 (09:08→21:01)
[2016-08-25] MEDS: MULTIVITAMINS 1 CAP CAPSULE PO SCH (09:08)
[2016-08-25] MEDS: CALCIUM CARBONATE 500 MG TAB.CHEW PO SCH ×4 (09:09→20:58)
[2016-08-25] MEDS: AMPICILLIN SODIUM 2,000 MG in NORMAL SALINE 100 ML IV SCH ×3 (13:05→23:58)
[2016-08-25] MEDS ORDERED: WARFARIN SODIUM 5 MG, WARFARIN SODIUM 2 MG PO SCH ×2 (17:00)
[2016-08-25] MEDS: ENOXAPARIN SODIUM 40 MG/0.4 ML SYRG SC SCH (17:08)
[2016-08-25] MEDS ORDERED: WARFARIN SODIUM 4 MG TABLET PO SCH (17:43)
[2016-08-25] MEDS: ALBUTEROL SULFATE 2.5 MG/3 ML VIAL.NEB IH PRN (18:22)
--- NOTE | 2016-08-25 18:58 | PN ---
Subjective - Date and Time Seen Date: 08/25/16 Time: 07:00 Subjective Narrative: Feels better, but wbc count higher this morning, and blood pressure dropped last night, requiring additional fluid bolus. Lactic acid level went up and procalcitonin level went up. Patient feels a little better, but last night I put him into an acute bed because he met pSOFA criteria for sepsis, with a respiratory rate of 32 and a history of confusion. He looked ill. Source of infection, urinary tract. Diagnosis, UTI, pyelonephritis and sepsis. Now this morning, looks more like serious sepsis, with a gram positive organism and a gram negative. Will add Ampicillin to the treatment. Will probably be here three days. Objective - Review of Systems Generalized/Overall Review: Reports: Malaise EENTM: Reports: No Symptoms Reported Respiratory: Reports: No Symptoms Reported Cardiac: Reports: Chest Pain Abdominal: Reports: No Symptoms Reported Genitourinary Symptoms: Reports: Frequency Musculoskeletal Complaints: Reports: No Symptoms Reported Neurological: Reports: No Symptoms Reported Skin: Reports: No Symptoms Reported Endocrine: Reports: No Symptoms Reported Misc: All systems neg except as marked - Vitals Vitals: Last Vital Signs Selected Entries 08/25/16 06:27 Temperature 36.9 C Temperature Temporal Artery Source Scan Pulse Rate 71 Respiratory 20 Rate Respiratory Normal Depth Blood Pressure 109/51 Blood Pressure Supine Position O2 Sat by Pulse 94 Oximetry Oxygen Delivery Room Air Method - Abnormal Lab Findings Abnormal Lab Findings: Abnormal Lab Results 08/25/16 08/25/16 08/25/16 Range/Units 00:18 04:16 04:16 WBC 25.1 H D (4.0-10.5) K/mm3 RBC 3.99 L (4.7-6.0) M/mm3 Hgb 11.3 L (13.5-18.0) gm/dL Hct 35.2 L (42.0-52.0) % RDW 14.1 H (11.5-14.0) % Plt Count 121 L (150-450) K/mm3 MPV 10.9 H (6.0-9.5) fl Neutrophils % (Manual) 84 H (42-75) % Lymphocytes % (Manual) 11 L (20-51) % Neutrophils # (Manual) 21.1 H (1.3-6.0) K/mm3 Monocytes # (Manual) 1.3 H (0.0-1.0) k/mm3 Potassium 5.0 H (3.4-4.6) mmol/L Carbon Dioxide 23.3 L (24-32.6) mmol/L BUN 34 H (6-23) mg/dL Creatinine 1.65 H D (0.4-1.4) mg/dL Est GFR (Non-Af Amer) 43 L D (60-130) mL/min Random Glucose 248 H (70-110) mg/dL Lactic Acid, Venous 2.2 H* (0.4-1.9) mmol/L Calcium 7.6 L (7.9-10.9) mg/dL Calcium Adj for Albumin 8.3 L (8.4-10.2) mg/dL Total Protein 5.8 L (6.2-8.2) gm/dL Albumin 2.7 L (3.4-5.0) gm/dl - Exam Constitutional: Present: Alert, Oriented x3, Cooperative, Well developed, Well nourished, No distress ENT Exam: Present: normal ENT inspection, hearing grossly normal, TMs normal Neck: Present: normal inspection Respiratory: Present: lungs clear, no respiratory distress Cardiovascular/Chest: Present: normal peripheral pulses, regular rate, rhythm, no chest tenderness Abdomen: Present: Normal bowel sounds, soft, nondistended, no rebound tenderness , no hepatospenomegaly, no masses, tender Extremity: Present: normal range of motion, no pedal edema Skin Exam: Present: normal color, warm/dry, no cyanosis Neurologic: Present: alert, oriented x 3 Appearance: Present: appropriate appearance, appropriate insight, neat, no memory impairment Eye contact: Present: cooperative, good eye contact, normal speech Thoughts: Present: normal thought pattern, no apparent hallucination Assessment/Plan Plan Narrative: Add Ampicillen. Continue fluids. Follow labs. - Problems/Diagnosis (1) Pyelonephritis Problem: Acute (2) Diabetes Problem: Chronic Qualifiers: Diabetes mellitus type: type 2 Diabetes mellitus complication status: without complication Diabetes mellitus maintenance mechanic millwright insulin use: without maintenance mechanic millwright use Qualified Code(s): E11.9 - Type 2 diabetes mellitus without complications (3) Afib Problem: Chronic (4) BPH (benign prostatic hyperplasia) Problem: Chronic (5) CHF (congestive heart failure) Problem: Chronic (6) HTN (hypertension) Problem: Chronic (7) BENJAMIN (obstructive sleep apnea) Problem: Chronic (8) Pulmonary hypertension Problem: Chronic
--- NOTE | 2016-08-25 19:08 | PN ---
Progess Note - Interim Narrative: 08/25/16 19:07 ADD DIAGNOSIS: DIASTOLIC DYSFUNCTION
[2016-08-25] MEDS: SIMVASTATIN 40 MG TABLET PO SCH (20:58)
[2016-08-25] MEDS: rOPINIRole HCL 1 MG TABLET PO SCH (20:59)
[2016-08-25] MEDS: clonazePAM 1 MG TABLET PO SCH (21:08)
[2016-08-25] MEDS: ZOLPIDEM TARTRATE 5 MG TABLET PO SCH (21:08)
[2016-08-25] MEDS ORDERED: FUROSEMIDE 10 MG/ML VIAL IV ONE ×2 (22:10)
[2016-08-25] MEDS ORDERED: FUROSEMIDE 10 MG/ML VIAL ONE (22:29)
[2016-08-25] MEDS: ACETAMINOPHEN 325 MG TABLET PO PRN (22:49)
[2016-08-26] MEDS ORDERED: LIDOCAINE HCL 10 APPL CARTRIDGE TP ONE (00:19)
--- NOTE | 2016-08-26 00:56 | PN ---
<Anny Shahid - Last Filed: 08/26/16 00:23> Subjective - Date and Time Seen Date: 08/26/16 Time: 00:23 Subjective Narrative: sleepy. unable to void. was incontinent of urine earlier today. unable to use urinal consistently. unsteady and weak when up at bedside. sats dropping to 80% on cpap - RT had to increase O2 to 3L bleed into cpap. I/O +3000 ml due to IVF from sepsis / blood pressure drop last night. weight up at least 2 kg in 2 days. Objective - Review of Systems Generalized/Overall Review: Reports: Weakness, Fever, Fatigue EENTM: Reports: No Symptoms Reported Respiratory: Reports: Shortness of Breath Cardiac: Reports: Edema. Denies: Chest Pain Abdominal: Reports: No Symptoms Reported Genitourinary Symptoms: Reports: Incontinent, Retention Musculoskeletal Complaints: Reports: No Symptoms Reported Neurological: Reports: No Symptoms Reported Skin: Reports: No Symptoms Reported Endocrine: Reports: No Symptoms Reported Misc: All systems neg except as marked - Vitals Vitals: Last Vital Signs Temp 38.0 C H 08/25/16 23:09 Pulse 73 08/25/16 23:09 Resp 18 08/25/16 23:09 BP 113/48 08/25/16 22:55 Pulse Ox 90 08/25/16 23:09 - Abnormal Lab Findings Abnormal Lab Findings: Abnormal Lab Results 08/25/16 08/25/16 08/25/16 Range/Units 00:18 04:16 04:16 WBC 25.1 H D (4.0-10.5) K/mm3 RBC 3.99 L (4.7-6.0) M/mm3 Hgb 11.3 L (13.5-18.0) gm/dL Hct 35.2 L (42.0-52.0) % RDW 14.1 H (11.5-14.0) % Plt Count 121 L (150-450) K/mm3 MPV 10.9 H (6.0-9.5) fl Neutrophils % (Manual) 84 H (42-75) % Lymphocytes % (Manual) 11 L (20-51) % Neutrophils # (Manual) 21.1 H (1.3-6.0) K/mm3 Monocytes # (Manual) 1.3 H (0.0-1.0) k/mm3 Potassium 5.0 H (3.4-4.6) mmol/L Carbon Dioxide 23.3 L (24-32.6) mmol/L BUN 34 H (6-23) mg/dL Creatinine 1.65 H D (0.4-1.4) mg/dL Est GFR (Non-Af Amer) 43 L D (60-130) mL/min Random Glucose 248 H (70-110) mg/dL Lactic Acid, Venous 2.2 H* (0.4-1.9) mmol/L Calcium 7.6 L (7.9-10.9) mg/dL Calcium Adj for Albumin 8.3 L (8.4-10.2) mg/dL Total Protein 5.8 L (6.2-8.2) gm/dL Albumin 2.7 L (3.4-5.0) gm/dl - Exam Constitutional: Present: Alert, Cooperative, Mild distress, Elderly ENT Exam: Present: hearing grossly normal Neck: Present: full range of motion, supple Breasts: Present: Exam deferred Respiratory: Present: crackles - bases, rhonchi Cardiovascular/Chest: Present: normal peripheral pulses, JVD, irregularly irregular Abdomen: Present: soft, nontender, nondistended, obese /Rectal: Present: Exam deferred Extremity: Present: non-tender, lower extremity edema Skin Exam: Present: warm/dry, no cyanosis, pallor Assessment/Plan Plan Narrative: Pylonephritis - originally started on cipro iv but this was stopped 6 due to worsening infection with developing sepsis. - Currently on - Rocephin 2 gm iv daily - Day #3 - Ampicillin 2000 mg iv q 6 hours - Day #2 - Urine culture prelim shows - 1. alpha hemolytic strep - 2. gram negative bacilli - await final urine culture. Sepsis - Source of infection: urine (UTI/pylonephritis) - prelim urine culture shows both alpha hemolytic strep and gram negative bacilli - await final urine culture. - currently on; - Rocephin 2 gm iv daily - Day #3 - Ampicillin 2000 mg iv q 6 hours - Day #2 - pt received sepsis bolus of 30 ml/kg night after admission - lactic acid originally trended up but then went down - 2.0 --> 2.2 --> 1.9 - both sets of prelim blood cultures are negative - was hypotensive night after admission but this has improved with sepsis bolus CHF / diastolic dysfunction - currently in acute on chronic CHF due to +3000 I/Os from sepsis bolus. - lasix 60 mg iv given overnight - monitor output closely - may need additional lasix if does not respond to this dose - oxygen sats dropped and pt needed 3 liters of O2 bled into cpap overnight. DM - accu-checks QID - sliding scale insulin as needed. - blood sugar likely elevated due to sepsis. afib - chronic, on coumadin - monitor INR. - telemetry HTN - vital signs q 4 hour - watch bp closely, especially in light of the sepsis. BENJAMIN - cpap while in hospital - cont pulse ox pulmonary HTN - will also make pt more likely to fluid overload, especially in conjunction with chronic CHF and diastolic dysfunction. - daily weights - strict I&Os. Code status: Full code VTE: lovenox gi proph: protonix bid - Problems/Diagnosis (1) Diastolic dysfunction Problem: Chronic (2) Sepsis Problem: Acute QualifierTitle: Sepsis type: sepsis due to unspecified organism Qualified Code(s): A41.9 - Sepsis, unspecified organism (3) Pyelonephritis Problem: Acute (4) Diabetes Problem: Chronic QualifierTitle: Diabetes mellitus type: type 2 Diabetes mellitus complication status: without complication Diabetes mellitus rat exterminator insulin use: without rat exterminator use Qualified Code(s): E11.9 - Type 2 diabetes mellitus without complications (5) Afib Problem: Chronic QualifierTitle: Atrial fibrillation type: chronic Qualified Code(s): I48.2 - Chronic atrial fibrillation (6) BPH (benign prostatic hyperplasia) Problem: Chronic QualifierTitle: Lower urinary tract symptom presence: presence of symptoms unspecified Qualified Code(s): N40.0 - Benign prostatic hyperplasia without lower urinary tract symptoms (7) CHF (congestive heart failure) Problem: Chronic QualifierTitle: Congestive heart failure type: diastolic Congestive heart failure chronicity: acute on chronic Qualified Code(s): I50.33 - Acute on chronic diastolic (congestive) heart failure (8) HTN (hypertension) Problem: Chronic QualifierTitle: Hypertension type: essential hypertension Qualified Code( s): I10 - Essential (primary) hypertension (9) BENJAMIN (obstructive sleep apnea) Problem: Chronic (10) Pulmonary hypertension Problem: Chronic <WengerKeller,Kenny - Last Filed: 08/26/16 17:01> Subjective Subjective Narrative: Became organ system involvement severely septic last night, severely septic. Needed additional fluid boluses. Responded well. I directly supervised our nurse practitioner hospitalist in all of her care for this patient. Objective - Vitals Vitals: Last Vital Signs Temp 36.4 C L 08/26/16 14:26 Pulse 81 08/26/16 14:26 Resp 20 08/26/16 14:26 BP 128/51 08/26/16 14:26 Pulse Ox 94 08/26/16 14:26 - Abnormal Lab Findings Abnormal Lab Findings: Abnormal Lab Results 08/26/16 08/26/16 08/26/16 Range/Units 05:32 05:32 05:32 WBC 18.2 H D (4.0-10.5) K/mm3 RBC 3.72 L (4.7-6.0) M/mm3 Hgb 10.4 L (13.5-18.0) gm/dL Hct 32.6 L (42.0-52.0) % MCHC 31.9 L (32-36) g/dl RDW 14.2 H (11.5-14.0) % Plt Count 112 L (150-450) K/mm3 MPV 10.9 H (6.0-9.5) fl Immature Gran % (Auto) 2.60 H (0.001-0.429) % Immature Gran # (Auto) 0.47 H (0.000-0.0310) K/mm3 Neutrophils % 85.7 H (42-75.0) % Lymphocytes % 4.7 L (20-51) % Neutrophils # 15.6 H (1.3-6.0) K/mm3 Lymphocytes # 0.9 L (1.5-3.5) k/mm3 Monocytes # 1.2 H (0.0-1.0) k/mm3 PT (9.4-11.4) Seconds INR (Anticoag Therapy) (0.90-1.10) INR BUN 30 H (6-23) mg/dL BUN/Creatinine Ratio 27.5 H (9.0-21.6) Random Glucose 146 H D (70-110) mg/dL Total Protein 6.1 L (6.2-8.2) gm/dL Albumin 2.7 L (3.4-5.0) gm/dl Procalcitonin 3.06 H (0.05-0.50) ng/mL 08/26/16 Range/Units 06:00 WBC (4.0-10.5) K/mm3 RBC (4.7-6.0) M/mm3 Hgb (13.5-18.0) gm/dL Hct (42.0-52.0) % MCHC (32-36) g/dl RDW (11.5-14.0) % Plt Count (150-450) K/mm3 MPV (6.0-9.5) fl Immature Gran % (Auto) (0.001-0.429) % Immature Gran # (Auto) (0.000-0.0310) K/mm3 Neutrophils % (42-75.0) % Lymphocytes % (20-51) % Neutrophils # (1.3-6.0) K/mm3 Lymphocytes # (1.5-3.5) k/mm3 Monocytes # (0.0-1.0) k/mm3 PT 22.5 H (9.4-11.4) Seconds INR (Anticoag Therapy) 2.16 H (0.90-1.10) INR BUN (6-23) mg/dL BUN/Creatinine Ratio (9.0-21.6) Random Glucose (70-110) mg/dL Total Protein (6.2-8.2) gm/dL Albumin (3.4-5.0) gm/dl Procalcitonin (0.05-0.50) ng/mL Assessment/Plan - Problems/Diagnosis (1) Pyelonephritis Problem: Acute (2) Diabetes Problem: Chronic Qualifiers: Diabetes mellitus type: type 2 Diabetes mellitus complication status: without complication Diabetes mellitus rat exterminator insulin use: without fdc use Qualified Code(s): E11.9 - Type 2 diabetes mellitus without complications (3) Afib Problem: Chronic Qualifiers: Atrial fibrillation type: chronic Qualified Code(s): I48.2 - Chronic atrial fibrillation (4) BPH (benign prostatic hyperplasia) Problem: Chronic Qualifiers: Lower urinary tract symptom presence: presence of symptoms unspecified Qualified Code(s): N40.0 - Benign prostatic hyperplasia without lower urinary tract symptoms (5) CHF (congestive heart failure) Problem: Chronic Qualifiers: Congestive heart failure type: diastolic Congestive heart failure chronicity: acute on chronic Qualified Code(s): I50.33 - Acute on chronic diastolic (congestive) heart failure (6) HTN (hypertension) Problem: Chronic Qualifiers: Hypertension type: essential hypertension Qualified Code(s): I10 - Essential (primary) hypertension (7) BENJAMIN (obstructive sleep apnea) Problem: Chronic (8) Pulmonary hypertension Problem: Chronic
[2016-08-26] MEDS: AMPICILLIN SODIUM 2,000 MG in NORMAL SALINE 100 ML IV SCH ×3 (05:10→17:29)
[2016-08-26 05:43] LABS: Hematocrit 32.6 % (42.0-52.0); Hemoglobin 10.4 gm/dL (13.5-18.0); Mean Cell Volume 87.6 fl (78-100); Mean Corpuscular Hgb Conc 31.9 g/dl (32-36); Mean Platelet Volume 10.9 fl (6.0-9.5); Neutrophil # 15.6 K/mm3 (1.3-6.0); Neutrophil % 85.7 % (42-75.0); Platelet Count 112 K/mm3 (150-450); Red Blood Count 3.72 M/mm3 (4.7-6.0); Red Cell Distribution Width 14.2 % (11.5-14.0); White Blood Count 18.2 K/mm3 (4.0-10.5)
[2016-08-26] MEDS: BUDESONIDE 0.5 MG/2 ML VIAL.NEB IH SCH ×2 (06:09→19:10)
[2016-08-26] MEDS: ALBUTEROL SULFATE 2.5 MG/3 ML VIAL.NEB IH PRN ×3 (06:10→19:11)
[2016-08-26 06:18] LABS: Albumin * 2.7 gm/dl (3.4-5.0); BUN/Creatinine Ratio 27.5 (9.0-21.6); Bilirubin, Total 0.3 mg/dL (0.0-1.1); Ca. Corrected For Albumin 8.7 mg/dL (8.4-10.2); Carbon Dioxide 28.4 mmol/L (24-32.6); Total Protein 6.1 gm/dL (6.2-8.2)
[2016-08-26 06:42] LABS: Anion Gap 10.6 mmol/L (6.8-13.8)
[2016-08-26] MEDS ORDERED: FUROSEMIDE 10 MG/ML VIAL IV ONE (07:08)
[2016-08-26] MEDS: INSULIN LISPRO 100 UNITS/ML VIAL SC SCH ×4 (07:12→21:32)
[2016-08-26] MEDS: PANTOPRAZOLE SODIUM 40 MG TABLET.EC PO SCH ×2 (07:25→21:30)
[2016-08-26] MEDS: glipiZIDE 10 MG TABLET PO SCH ×2 (07:26→17:28)
[2016-08-26 09:02] LABS: Prothrombin Time (Patient) 22.5 Seconds (9.4-11.4)
[2016-08-26 09:03] LABS: INR 2.16 INR (0.90-1.10)
[2016-08-26] MEDS: FLUTICASONE/SALMETEROL 14 PUFF DISK.W.DEV IH SCH ×2 (09:46→21:31)
[2016-08-26] MEDS: ISOSORBIDE MONONITRATE 30 MG TAB.SR.24H PO SCH (09:47)
[2016-08-26] MEDS: FUROSEMIDE 40 MG TABLET PO SCH (09:47)
[2016-08-26] MEDS: CLOTRIMAZOLE 15 APPL TUBE TP SCH ×2 (09:47→21:30)
[2016-08-26] MEDS: MAGNESIUM OXIDE 400 MG TABLET PO SCH ×4 (09:47→21:30)
[2016-08-26] MEDS: FERROUS SULFATE 325 MG TABLET PO SCH (09:47)
[2016-08-26] MEDS: ASPIRIN 81 MG TABLET.DR PO SCH (09:47)
[2016-08-26] MEDS: AMMONIUM LACTATE 225 APPL BTL TP SCH ×2 (09:47→21:30)
[2016-08-26] MEDS: TAMSULOSIN HCL 0.4 MG CAP.SR.24H PO SCH (09:47)
[2016-08-26] MEDS: MULTIVITAMINS 1 CAP CAPSULE PO SCH (09:48)
[2016-08-26] MEDS: CALCIUM CARBONATE 500 MG TAB.CHEW PO SCH ×4 (09:48→21:29)
--- NOTE | 2016-08-26 17:09 | PN ---
Subjective - Date and Time Seen Date: 08/26/16 Time: 07:00 Subjective Narrative: Became organ system involvement severely septic last night, severely septic. Needed additional fluid boluses. But now fluid overloaded. Resonding well to IV Lasix. Have converted to saline lock. Objective - Review of Systems Generalized/Overall Review: Reports: No Symptoms Reported EENTM: Reports: No Symptoms Reported Respiratory: Reports: Cough, Shortness of Breath, Wheezing Cardiac: Reports: No Symptoms Reported Abdominal: Reports: No Symptoms Reported Genitourinary Symptoms: Reports: No Symptoms Reported Musculoskeletal Complaints: Reports: No Symptoms Reported Neurological: Reports: No Symptoms Reported Skin: Reports: No Symptoms Reported Endocrine: Reports: No Symptoms Reported Misc: All systems neg except as marked - Vitals Vitals: Last Vital Signs Selected Entries 08/26/16 08/26/16 08/26/16 06:05 06:10 06:20 Temperature 36.9 C Temperature Oral Source Pulse Rate 69 69 72 Respiratory 16 20 22 H Rate Respiratory Normal Depth Blood Pressure 133/47 Blood Pressure Supine Position O2 Sat by Pulse 90 91 Oximetry Oxygen Delivery Room Air Room Air Room Air Method - Abnormal Lab Findings Abnormal Lab Findings: Abnormal Lab Results 08/26/16 08/26/16 08/26/16 Range/Units 05:32 05:32 05:32 WBC 18.2 H D (4.0-10.5) K/mm3 RBC 3.72 L (4.7-6.0) M/mm3 Hgb 10.4 L (13.5-18.0) gm/dL Hct 32.6 L (42.0-52.0) % MCHC 31.9 L (32-36) g/dl RDW 14.2 H (11.5-14.0) % Plt Count 112 L (150-450) K/mm3 MPV 10.9 H (6.0-9.5) fl Immature Gran % (Auto) 2.60 H (0.001-0.429) % Immature Gran # (Auto) 0.47 H (0.000-0.0310) K/mm3 Neutrophils % 85.7 H (42-75.0) % Lymphocytes % 4.7 L (20-51) % Neutrophils # 15.6 H (1.3-6.0) K/mm3 Lymphocytes # 0.9 L (1.5-3.5) k/mm3 Monocytes # 1.2 H (0.0-1.0) k/mm3 PT (9.4-11.4) Seconds INR (Anticoag Therapy) (0.90-1.10) INR BUN 30 H (6-23) mg/dL BUN/Creatinine Ratio 27.5 H (9.0-21.6) Random Glucose 146 H D (70-110) mg/dL Total Protein 6.1 L (6.2-8.2) gm/dL Albumin 2.7 L (3.4-5.0) gm/dl Procalcitonin 3.06 H (0.05-0.50) ng/mL 08/26/16 Range/Units 06:00 WBC (4.0-10.5) K/mm3 RBC (4.7-6.0) M/mm3 Hgb (13.5-18.0) gm/dL Hct (42.0-52.0) % MCHC (32-36) g/dl RDW (11.5-14.0) % Plt Count (150-450) K/mm3 MPV (6.0-9.5) fl Immature Gran % (Auto) (0.001-0.429) % Immature Gran # (Auto) (0.000-0.0310) K/mm3 Neutrophils % (42-75.0) % Lymphocytes % (20-51) % Neutrophils # (1.3-6.0) K/mm3 Lymphocytes # (1.5-3.5) k/mm3 Monocytes # (0.0-1.0) k/mm3 PT 22.5 H (9.4-11.4) Seconds INR (Anticoag Therapy) 2.16 H (0.90-1.10) INR BUN (6-23) mg/dL BUN/Creatinine Ratio (9.0-21.6) Random Glucose (70-110) mg/dL Total Protein (6.2-8.2) gm/dL Albumin (3.4-5.0) gm/dl Procalcitonin (0.05-0.50) ng/mL - Exam Constitutional: Present: Alert, Oriented x3, Cooperative, Well developed, Well nourished, Mild distress ENT Exam: Present: normal ENT inspection, hearing grossly normal, pharynx normal Neck: Present: normal inspection, trachea midline Respiratory: Present: wheezing, expiration (prolonged) Cardiovascular/Chest: Present: gallop/S3 Abdomen: Present: Normal bowel sounds, soft, nontender, nondistended, no rebound tenderness, no hepatospenomegaly, no masses Extremity: Present: normal inspection, no pedal edema Skin Exam: Present: no cyanosis, cool/dry Neurologic: Present: alert, oriented x 3 Eye contact: Present: cooperative, good eye contact, normal speech Thoughts: Present: normal thought pattern, no apparent hallucination, auditory hallucinations Cauti Physician Documentation - Urinary Catheter Management Coude Catheter Date of Insertion: 08/26/16 Time of Insertion: 01:00 Assessment/Plan Plan Narrative: Iv Lasix. DC fluids. Monitor closely. Henry briefly./ IV antibiotics. - Problems/Diagnosis (1) Pyelonephritis Problem: Acute (2) Diabetes Problem: Chronic Qualifiers: Diabetes mellitus type: type 2 Diabetes mellitus complication status: without complication Diabetes mellitus ferry terminal agent insulin use: without halfway use Qualified Code(s): E11.9 - Type 2 diabetes mellitus without complications (3) Afib Problem: Chronic Qualifiers: Atrial fibrillation type: chronic Qualified Code(s): I48.2 - Chronic atrial fibrillation (4) BPH (benign prostatic hyperplasia) Problem: Chronic Qualifiers: Lower urinary tract symptom presence: presence of symptoms unspecified Qualified Code(s): N40.0 - Benign prostatic hyperplasia without lower urinary tract symptoms (5) CHF (congestive heart failure) Problem: Acute Qualifiers: Congestive heart failure type: diastolic Congestive heart failure chronicity: acute on chronic Qualified Code(s): I50.33 - Acute on chronic diastolic (congestive) heart failure (6) HTN (hypertension) Problem: Chronic Qualifiers: Hypertension type: essential hypertension Qualified Code(s): I10 - Essential (primary) hypertension (7) BENJAMIN (obstructive sleep apnea) Problem: Chronic (8) Pulmonary hypertension Problem: Chronic
[2016-08-26] MEDS: WARFARIN SODIUM 5 MG, WARFARIN SODIUM 4 MG PO SCH ×2 (17:28)
[2016-08-26] MEDS: ENOXAPARIN SODIUM 40 MG/0.4 ML SYRG SC SCH (17:29)
[2016-08-26] MEDS: rOPINIRole HCL 1 MG TABLET PO SCH (21:29)
[2016-08-26] MEDS: clonazePAM 1 MG TABLET PO SCH (21:30)
[2016-08-26] MEDS: ZOLPIDEM TARTRATE 5 MG TABLET PO SCH (21:30)
[2016-08-27] MEDS: AMPICILLIN SODIUM 2,000 MG in NORMAL SALINE 100 ML IV SCH ×3 (00:42→11:33)
[2016-08-27] MEDS: ACETAMINOPHEN 325 MG TABLET PO PRN (00:44)
[2016-08-27 06:05] LABS: Prothrombin Time (Patient) 20.8 Seconds (9.4-11.4)
[2016-08-27] MEDS: BUDESONIDE 0.5 MG/2 ML VIAL.NEB IH SCH (06:11)
[2016-08-27 06:15] LABS: Hematocrit 31.1 % (42.0-52.0); Hemoglobin 10.1 gm/dL (13.5-18.0); Mean Cell Volume 86.1 fl (78-100); Mean Corpuscular Hgb Conc 32.5 g/dl (32-36); Mean Platelet Volume 10.9 fl (6.0-9.5); Neutrophil # 8.5 K/mm3 (1.3-6.0); Neutrophil % 84.7 % (42-75.0); Platelet Count 114 K/mm3 (150-450); Red Blood Count 3.61 M/mm3 (4.7-6.0)
[2016-08-27 06:20] LABS: Anion Gap 10.7 mmol/L (6.8-13.8); BUN/Creatinine Ratio 26.7 (9.0-21.6); Calcium * 8.2 mg/dL (7.9-10.9); Carbon Dioxide 30.8 mmol/L (24-32.6); Estimated Creat Clear 64.2; Potassium 3.5 mmol/L (3.4-4.6)
[2016-08-27] MEDS: PANTOPRAZOLE SODIUM 40 MG TABLET.EC PO SCH (06:41)
[2016-08-27] MEDS: glipiZIDE 10 MG TABLET PO SCH (06:41)
[2016-08-27] MEDS: INSULIN LISPRO 100 UNITS/ML VIAL SC SCH ×2 (06:42→11:33)
[2016-08-27] MEDS: AMMONIUM LACTATE 225 APPL BTL TP SCH (09:01)
[2016-08-27] MEDS: ISOSORBIDE MONONITRATE 30 MG TAB.SR.24H PO SCH (09:01)
[2016-08-27] MEDS: FLUTICASONE/SALMETEROL 14 PUFF DISK.W.DEV IH SCH (09:01)
[2016-08-27] MEDS: CLOTRIMAZOLE 15 APPL TUBE TP SCH (09:01)
[2016-08-27] MEDS: MAGNESIUM OXIDE 400 MG TABLET PO SCH (09:05)
[2016-08-27] MEDS: FERROUS SULFATE 325 MG TABLET PO SCH (09:05)
[2016-08-27] MEDS: ASPIRIN 81 MG TABLET.DR PO SCH (09:05)
[2016-08-27] MEDS: TAMSULOSIN HCL 0.4 MG CAP.SR.24H PO SCH (09:06)
[2016-08-27] MEDS: FUROSEMIDE 40 MG TABLET PO SCH (09:06)
[2016-08-27] MEDS: MULTIVITAMINS 1 CAP CAPSULE PO SCH (10:15)
[2016-08-27] MEDS: CALCIUM CARBONATE 500 MG TAB.CHEW PO SCH (10:15)
[2016-08-27 10:34] VITALS: BP 121/58
[2016-08-27] MEDS: ALBUTEROL SULFATE 2.5 MG/3 ML VIAL.NEB IH PRN (11:14)
--- NOTE | 2016-08-27 12:05 | DS ---
(1) Pyelonephritis Problem: Acute (2) Diabetes Problem: Chronic Qualifiers: Diabetes mellitus type: type 2 Diabetes mellitus complication status: without complication Diabetes mellitus intermediate insulin use: without intermediate use Qualified Code(s): E11.9 - Type 2 diabetes mellitus without complications (3) Afib Problem: Chronic Qualifiers: Atrial fibrillation type: chronic Qualified Code(s): I48.2 - Chronic atrial fibrillation (4) BPH (benign prostatic hyperplasia) Problem: Chronic Qualifiers: Lower urinary tract symptom presence: presence of symptoms unspecified Qualified Code(s): N40.0 - Benign prostatic hyperplasia without lower urinary tract symptoms (5) CHF (congestive heart failure) Problem: Resolved Qualifiers: Congestive heart failure type: diastolic Congestive heart failure chronicity: acute on chronic Qualified Code(s): I50.33 - Acute on chronic diastolic (congestive) heart failure (6) HTN (hypertension) Problem: Chronic Qualifiers: Hypertension type: essential hypertension Qualified Code(s): I10 - Essential (primary) hypertension (7) BENJAMIN (obstructive sleep apnea) Problem: Chronic (8) Pulmonary hypertension Problem: Chronic (9) Sepsis Problem: Acute Qualifiers: Sepsis type: sepsis due to unspecified organism Qualified Code(s): A41.9 - Sepsis, unspecified organism Description of Stay: Turned out to have sepsis due to pyelonephritis due to prostatitis due to Enterococcus and E coli. He was successfully treated with fluids and IV antibiotics. He developed fluid overload, successfully treated with IV lasix. He is now almost back to baseline and ready to go home. He will return home and will be followed as an outpatient. Procedures Performed: none Discharge Disposition: Home self care Disposition: Home self-care Condition: Good Discharge Activity: Activity as tolerated Discharge Diet: Consistent carbs, Low salt Referrals: Kenny Uribe MD [Primary Care Provider] - Problem Oriented Discharge Instructions to Patient/Family: Pyelonephritis, Adult, Sepsis, Adult, Heart Failure, [id number] Additional Patient Instructions (free text): Followup with Dr. Hurley 1 week. CBC CMP Protime blood test 3 days. Prescriptions (Any new or edited meds): Cephalexin Monohydrate [Keflex] 500 mg PO QID #60 capsule Complete Home Medications List: Complete Home Medication List: Albuterol Sulfate [Albuterol Sulfate 0.63 MG/3ML] 0.63 mg IH Q4H PRN 06/12/12 Enalapril Maleate 10 mg PO HS 06/12/12 Simvastatin [Zocor] 40 mg PO HS 06/12/12 clonazePAM [Klonopin] 1 mg PO HS 06/12/12 Furosemide [Lasix] 40 mg PO DAILY #30 tablet 06/15/12 Potassium Chloride [K-Dur] 20 meq PO DAILY #30 tablet 06/15/12 Lansoprazole [Prevacid] 30 mg PO BID 06/07/14 Warfarin Sodium [Coumadin] 7 mg PO MOWEFR 06/07/14 Warfarin Sodium [Coumadin] 9 mg PO SUTUTHSA 06/07/14 glipiZIDE [Glucotrol] 10 mg PO BIDAC 06/07/14 Acetaminophen [Tylenol] 650 mg PO QID PRN #0 tablet 01/20/15 Aspirin [Aspirin Enteric Coated] 81 mg PO DAILY 02/14/16 Multivitamin [One Daily Essential] 1 each PO DAILY 02/14/16 Ammonium Lactate 1 appl TP BID 07/08/16 Budesonide/Formoterol Fumarate [Symbicort 160-4.5 Mcg Inhaler] 2 puff IH BID Clotrimazole [Lotrimin Cream] 15 gm TP BID 07/08/16 Docusate Sodium [Colace] 200 mg PO HS PRN 07/08/16 Ferrous Sulfate [Iron] 325 mg PO DAILY 07/08/16 Nitroglycerin [Nitrostat] 0.4 mg SL Q5MIN PRN 07/08/16 Zolpidem Tartrate [Ambien] 5 mg PO HS 07/08/16 Calcium Carbonate [Calcium] 1,250 mg PO QID 08/24/16 Isosorbide Mononitrate [Isosorbide Mononitrate ER] 15 mg PO DAILY 08/24/16 Magnesium 250 mg PO QID 08/24/16 Probenecid/Colchicine [Probenecid-Colchicine Tabs] 1 tab PO BID PRN 08/24/16 Tamsulosin HCl 0.4 mg PO DAILY 08/24/16 Triamcinolone Acetonide [Kenalog 0.025%] 1 appl TP BID PRN 08/24/16 Cephalexin Monohydrate [Keflex] 500 mg PO QID #60 capsule 08/27/16 Colchicine 0.6 mg PO BID PRN #0 tablet 08/27/16 Insulin Lispro [Humalog] 0 units SC ACHSINS vial 08/27/16 rOPINIRole HCL [Requip] 5 mg PO HS tablet 08/27/16
== END 2016-08-27 13:31 | disposition home or self-care (01) | DRG 871 ==
LOC: ER 10:39 → MS 12:56 → OBSVTOIN 22:20
PROVIDERS: ADMIT Allergy & Immunology; ATTEND Allergy & Immunology
DX: A41.9 Sepsis, unspecified organism (principal); I50.33 Acute on chronic diastolic (congestive) heart failure; N10 Acute pyelonephritis; N41.0 Acute prostatitis; B96.20 Unspecified Escherichia coli [E. coli] as the cause of diseases classified elsewhere; I48.2 Chronic atrial fibrillation; I10 Essential (primary) hypertension; E11.9 Type 2 diabetes mellitus without complications; I27.2 Other secondary pulmonary hypertension; N40.0 Benign prostatic hyperplasia without lower urinary tract symptoms; Z79.01 Long term (current) use of anticoagulants; Z79.82 Long term (current) use of aspirin; Z95.1 Presence of aortocoronary bypass graft

== ENCOUNTER 2016-09-04 07:39 | Inpatient (IN) | payer MEDICARE, BC ==
--- NOTE | 2016-09-04 08:03 | ERNOTE ---
<Joao Kirby - Last Filed: 09/04/16 07:49> Neuro HPI ER Record Date of Service: 09/04/16 Presenting Symptoms: weakness Source: patient Exam Limitations: clinical condition, physical impairment Immunizations: IMMUNIZATION HX Immunizations Up to Date Yes History of Influenza Vaccine Yes Hx Pneumococcal Vaccination Yes Allergies/Adverse Reactions: Allergies Allergy/AdvReac Type Severity Reaction Status Date / Time ketoprofen [From Oruvail] AdvReac Verified 09/04/16 08:48 metoprolol AdvReac Verified 09/04/16 08:48 rofecoxib [From Vioxx] AdvReac Verified 09/04/16 08:48 Home Medications: HOME MEDICATIONS Albuterol Sulfate [Albuterol Sulfate 0.63 MG/3ML] 0.63 mg IH Q4H PRN 06/12/12 [ Last Taken 06/12/12] Enalapril Maleate 10 mg PO HS 06/12/12 [Last Taken 06/12/12] Simvastatin [Zocor] 40 mg PO HS 06/12/12 [Last Taken 06/12/12] clonazePAM [Klonopin] 1 mg PO HS 06/12/12 [Last Taken 06/12/12] Furosemide [Lasix] 40 mg PO DAILY #30 tablet 06/15/12 [Last Taken Unknown] Potassium Chloride [K-Dur] 20 meq PO DAILY #30 tablet 06/15/12 [Last Taken Unknown] Lansoprazole [Prevacid] 30 mg PO BID 06/07/14 [Last Taken Unknown] Warfarin Sodium [Coumadin] 7 mg PO MOWEFR 06/07/14 [Last Taken Unknown] Warfarin Sodium [Coumadin] 9 mg PO SUTUTHSA 06/07/14 [Last Taken Unknown] glipiZIDE [Glucotrol] 10 mg PO BIDAC 06/07/14 [Last Taken Unknown] Acetaminophen [Tylenol] 650 mg PO QID PRN #0 tablet 01/20/15 [Last Taken Unknown ] Aspirin [Aspirin Enteric Coated] 81 mg PO DAILY 02/14/16 [Last Taken Unknown] Multivitamin [One Daily Essential] 1 each PO DAILY 02/14/16 [Last Taken Unknown] Ammonium Lactate 1 appl TP BID 07/08/16 [Last Taken Unknown] Budesonide/Formoterol Fumarate [Symbicort 160-4.5 Mcg Inhaler] 2 puff IH BID [Last Taken Unknown] Clotrimazole [Lotrimin Cream] 15 gm TP BID 07/08/16 [Last Taken Unknown] Docusate Sodium [Colace] 200 mg PO HS PRN 07/08/16 [Last Taken Unknown] Ferrous Sulfate [Iron] 325 mg PO DAILY 07/08/16 [Last Taken Unknown] Nitroglycerin [Nitrostat] 0.4 mg SL Q5MIN PRN 07/08/16 [Last Taken Unknown] Zolpidem Tartrate [Ambien] 5 mg PO HS 07/08/16 [Last Taken Unknown] Calcium Carbonate [Calcium] 1,250 mg PO QID 08/24/16 [Last Taken Unknown] Isosorbide Mononitrate [Isosorbide Mononitrate ER] 15 mg PO DAILY 08/24/16 [ Last Taken Unknown] Magnesium 250 mg PO QID 08/24/16 [Last Taken Unknown] Probenecid/Colchicine [Probenecid-Colchicine Tabs] 1 tab PO BID PRN 08/24/16 [ Last Taken Unknown] Tamsulosin HCl 0.4 mg PO DAILY 08/24/16 [Last Taken Unknown] Triamcinolone Acetonide [Kenalog 0.025%] 1 appl TP BID PRN 08/24/16 [Last Taken Unknown] rOPINIRole HCL [Requip] 5 mg PO HS tablet 08/27/16 [Last Taken Unknown] - History of Present Illness Narrative: PT IS BROUGHT IN PER EMS WITH HX THAT HE TRIED TO GET OUT OF BED THIS MORNING ABOUT 0700 AND COULDN'T STAND OR WALK. HE HAS ALSO BEEN NOTED TO HAVE SLURRED SPEECH WHICH HE SAYS IS NEW FOR HIM. HE WAS UNABLE TO SAY WHICH SIDE BOTHERS HIM MOST. HE IS BROUGHT IN ALONE. HE DENIES ANY HEADACHE PAIN. Review of Systems - Review of Systems Constitutional: Present: See HPI EYE: Present: no symptoms reported Respiratory: Present: no symptoms reported Cardiology: Present: no symptoms reported Gastrointestinal/Abdominal: Present: no symptoms reported Genitourinary: Present: no symptoms reported Musculoskeletal: Present: See HPI, other - MUSCLE WEAKNESS. Neurological: Present: See HPI, weakness, other - SPEECH DEFICIT AND POSSIBLE RECEPTIVE DEFICIT WELL. Endocrine: Present: no symptoms reported Hematologic/Lymphatic: Present: no symptoms reported Psych: Present: no symptoms reported All Other Systems: All systems neg except as marked - Patient's Past Medical History Patient History - Medical: Diabetes Type 2 Patient History - Cardiac/Respiratory: Atrial Fibrillation, Coronary Heart Disease, CHF, Hypertension, CPAP/BiPAP Home Use, Sleep Apnea Patient History - Cancer: Colon, Chemotherapy history Patient History - Surgical Procedures: Cataracts, Colon Resection, Coronary Bypass Surgery, Pacemaker, Other Patient History - Other: None - Family History Father Family History - Medical: Family History - Cardiac/Respiratory: Hypertension Brother Family History - Medical: , Diabetes Type 1 Family History - Cardiac/Respiratory: Other - Social History Living Situations: significant other Abuse History: No History of abuse Psych History: No pertinent hx Does anyone smoke in the home?: No Alcohol Use: rarely Drug Use: none - Immunizations Immunizations Up to Date: Yes Hx Pneumococcal Vaccination: Yes History of Influenza Vaccine: Yes Physical Exam - Physical Exam General Appearance: Present: wd/wn, alert, moderate distress - ELDERLY MAN, ALERT AND SEEMS ORIENTED WITH OBVIOUS EXPRESSIVE AND POSSIBLY SOME MILD RECEPTIVE APHASIA AND DYSARTHRIA WITH EVIDENT LEFT SIDE EXTREMITY WEAKNESS AND LOWER FACIAL WEAKNESS. Eye Exam: Normal inspection: bilateral, PERRL: bilateral, EOMI: bilateral Ears, Nose, Throat: Present: normal except - - ENDENTULOUS AND MILD DEVIATION OF PROTRUDING TONGUE TO THE LEFT. WEAK GAG REFLEX. Neck: Present: normal inspection, nontender Respiratory: Present: no respiratory distress, normal breath sounds, no accessory muscle use, chest nontender, lungs clear Cardiovascular/Chest: Present: regular rate, rhythm, no murmur, normal peripheral pulses Gastrointestinal/Abdominal: Present: normal bowel sounds, nontender, nondistended, soft, no organomegaly Extremity Exam: Present: normal except - - MILD SUPERFICIAL FORE ARM BRUISES . DEFINITE LEFT UPPER EXTREMITY WEAKNESS AND MILD LEFT LOWER EXTREMITY WEAKNESS. Neurological Exam: Present: alert, oriented, slag expander II-XII nml as tested, facial droop - MILD LEFT LOWER WEAKNESS. , motor weakness - ON LEFT , UPPER > LOWER DTR: N=norm/NB=norm/brisk/A=abs/DD=dull/dimin/HC=hyperactive: Knee (R): Normal, Knee (L): Normal Skin Exam: Present: normal color, warm/dry, other - AFOREMENTIONED BRUISING. Fidelina Coma Scale - Assess Eye Opening: Spontaneous Motor: Obeys Commands Verbal: Oriented - Total Coma Scale Total: 15 Initial Stroke Assessment - NIH Stroke Scale Level of Consciousness: Alert LOC Commands (open/close eyes/fist): Performs both correctly Lateral Gaze Paresis: None Visual Field Loss: No visual loss Facial Palsy: Minor paralysis Right Arm Motor (10 sec hold): No drift Left Arm Motor (10 sec hold): Drift, effort made Right Leg Motor (5 sec hold): Drift Left Leg Motor (5 sec hold): Drift Limb Ataxia (finger/nose heel/turpin): Present in 1 limb If present, ataxia in:: Right arm Language Aphasia (description/naming/reading): Mild, yet understandable Dysarthria (speech clarity): Slurring, intelligeble Neglect Inattention (visual/tactile/auditory/spatial/person): No neglect ED Progress - Vital Signs Patient's Vital Signs:: I have reviewed the patient's vital signs. Vital Signs: Vital Signs 09/04/16 09/04/16 07:40 07:45 Temperature 36.9 C Pulse Rate 71 72 Respiratory 23 H Rate Blood Pressure 178/76 O2 Sat by Pulse 93 Oximetry - Progress/Reassessment Chief Complaint: CerebroVascular Accident - Transfer of Care Physician Sign Out: Joao Kirby Receiving Physician: Bryce Maynard Pending Results: CT/MRI results, Labs, X-ray results Expected Disposition: Admit, Transfer Departure Clinical Impression: CVA (cerebral vascular accident) Qualifiers: CVA mechanism: unspecified Qualified Code(s): I63.9 - Cerebral infarction, unspecified - Departure Disposition: [facility] Condition: Serious <EssexTrung dior - Last Filed: 09/04/16 09:24> Neuro HPI ER Record Immunizations: IMMUNIZATION HX Immunizations Up to Date Yes History of Influenza Vaccine Yes Hx Pneumococcal Vaccination Yes ED Progress - Results and Orders Patient's Lab Results:: I have reviewed the patient's lab results. - Vital Signs Vital Signs: Vital Signs 09/04/16 09/04/16 09/04/16 07:40 07:45 07:54 Temperature 36.9 C Pulse Rate 71 72 70 Respiratory 23 H 20 Rate Blood Pressure 178/76 160/68 O2 Sat by Pulse 93 91 Oximetry 09/04/16 09/04/16 09/04/16 07:56 08:10 08:25 Temperature Pulse Rate 71 70 70 Respiratory 22 H 23 H 21 H Rate Blood Pressure 161/63 169/71 159/55 O2 Sat by Pulse 94 93 Oximetry 09/04/16 09/04/16 08:40 08:55 Temperature Pulse Rate 70 70 Respiratory 16 20 Rate Blood Pressure 160/63 150/59 O2 Sat by Pulse 93 92 Oximetry - EKG EKG: unchanged from, other - paced rhythm Departure - Critical Care Critical Care: case discussed with dr yenni abraham who accepts patient for admission to [facility] condition serious
[2016-09-04 08:06] LABS: Hematocrit 36.2 % (42.0-52.0); Hemoglobin 11.5 gm/dL (13.5-18.0); Mean Cell Volume 87.2 fl (78-100); Mean Corpuscular Hemoglobin 27.7 pg (27-31); Mean Corpuscular Hgb Conc 31.8 g/dl (32-36); Mean Platelet Volume 9.4 fl (6.0-9.5); Neutrophil # 7.2 K/mm3 (1.3-6.0); Neutrophil % 67.5 % (42-75.0); Platelet Count 253 K/mm3 (150-450); Red Blood Count 4.15 M/mm3 (4.7-6.0); Red Cell Distribution Width 13.7 % (11.5-14.0); White Blood Count 10.7 K/mm3 (4.0-10.5)
--- OUTSIDE RECORDS SUMMARY | 2016-09-04 08:18 | XMS REPORT | Continuity of Care Document ---
:1935 Author Organization [facility] ([facility]) Address [address] [place] [address] Phone [phone] Care Team Providers Name Role Phone Kenny Hurley Primary Care Provider Unavailable Source Comments This disclosure is being made pursuant to the Care Everywhere program, applicable federal and state laws, and may not contain all informaitonavailable regarding this patient.[facility] ([facility]) Active Allergies and Adverse Reactions No Known [...] Hematuria, gross 10/22/2011 Cardiac pacemaker in situ, [employer] Coronary artery disease Overview: Formatting of this note may be different from the original. 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 3 vessel CAD rec CABG) - 01/18/1996 CV SURGERY: CV Surgery (ORNELAS to LAD, SVG to OM, SVG to RPDA) - 01/20/1996 ECHO/MUGA: Echo (Normal EF, Mild TR) - 10/14/2006 Echo (Normal EF) - 03/05/2012 ELECTROPHYSIOLOGY: Holter (Rare PVCs, Sinus William, No correlation with symptoms) - 10/01/2004 Devices (AV pacemaker implant ([employer]).) - 02/14/2008 STRESS TESTS: Pers MPI [...] Taken Blood Pressure 122/44 05/11/2016 9:56 AM [employer]LL [employer] MACHINE Pulse 46 05/11/2016 9:56 AM [employer]LL [employer] MACH[employer] Temperature 35.5 C (95.9 F) 04/24/2012 9:53 AM CELL [employer] MACHINE Respiratory Rate 16 08/05/2015 2:59 PM CDT Height 1.803 m (5' 10.98") 05/11/2016 9:56 AM CELL [employer]UBER MACHINE Weight 93.895 kg (207 lb) 05/11/2016 9:56 AM CELL TUBER MACHINE Body Mass Index 28.88 05/11/2016 9:56 AM CELL TU[employer] MACHINE Oxygen Saturation - - Plan of Care Date Type Specialty Providers Description 10/05/2016 Appointment Heart and Vascular Gennaro Shelby MD Chief Comp: Patient [address] [place] [address] Visit [phone] (Fax) 05/19/2017 Appointment Heart and Vascular Zarina Duenas MD Chief Comp: Patient [address] [place] [address] Visit [phone] (Fax) Health Maintenance Due Date Last Done [...]
[2016-09-04 08:21] LABS: Albumin * 3.1 gm/dl (3.4-5.0); Anion Gap 10.3 mmol/L (6.8-13.8); BUN/Creatinine Ratio 29.9 (9.0-21.6); Bilirubin, Total 0.3 mg/dL (0.0-1.1); Ca. Corrected For Albumin 9.7 mg/dL (8.4-10.2); Calcium * 9.3 mg/dL (7.9-10.9); Carbon Dioxide 32.7 mmol/L (24-32.6); Total Protein 7.2 gm/dL (6.2-8.2)
[2016-09-04 08:32] LABS: Prothrombin Time (Patient) 17.6 Seconds (9.4-11.4)
[2016-09-04 08:33] LABS: INR 1.69 INR (0.90-1.10); Partial Thrombolplastin Time 31.7 Seconds (24-32)
--- OUTSIDE RECORDS SUMMARY | 2016-09-04 09:30 | XMS REPORT | Continuity of Care Document ---
:1935 Author Organization ([facility]) Address [address] [place] [address] Phone [phone] Care Team Providers Name Role Phone Kenny Hurley Primary Care Provider Unavailable Source Comments This disclosure is being made pursuant to the Care Everywhere program, applicable federal and state laws, and may not contain all informaitonavailable regarding this patient. ([facility]) Active Allergies and Adverse Reactions No Known [...] Hematuria, gross 10/22/2011 Cardiac pacemaker in situ, [employer] Coronary artery disease Overview: Formatting of this note may be different from the original. 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 3 vessel CAD rec CABG) - 01/18/1996 CV SURGERY: CV Surgery (ORNELAS to LAD, SVG to OM, SVG to RPDA) - 01/20/1996 ECHO/MUGA: Echo (Normal EF, Mild TR) - 10/14/2006 Echo (Normal EF) - 03/05/2012 ELECTROPHYSIOLOGY: Holter (Rare PVCs, Sinus William, No correlation with symptoms) - 10/01/2004 Devices (AV pacemaker implant ([employer]).) - 02/14/2008 STRESS TESTS: Pers MPI [...] Taken Blood Pressure 122/44 05/11/2016 9:56 AM [employer] Pulse 46 05/11/2016 9:56 AM [employer] Temperature 35.5 C (95.9 F) 04/24/2012 9:53 AM [employer] Respiratory Rate 16 08/05/2015 2:59 PM CDT Height 1.803 m (5' 10.98") 05/11/2016 9:56 AM [employer] Weight 93.895 kg (207 lb) 05/11/2016 9:56 AM [employer] Body Mass Index 28.88 05/11/2016 9:56 AM [employer] Oxygen Saturation - - Plan of Care Date Type Specialty Providers Description 10/05/2016 Appointment Heart and Vascular Gennaro Shelby MD Chief Comp: Patient [address] [place] [address] Visit [phone] (Fax) 05/19/2017 Appointment Heart and Vascular Zarina Duenas MD Chief Comp: Patient [address] [place] [address] Visit [phone] (Fax) Health Maintenance Due Date Last Done [...]
--- NOTE | 2016-09-04 10:01 | HP ---
Chief Complaint - Chief Complaint Date of Service: 09/04/16 Time of Service: 09:53 Chief Complaint: weakness History of Present Illness: Trung HALEY, is a 80-year-old white male, patient of Dr. Hurley, with previous medical history of diabetes mellitus type 2, chronic atrial fibrillation, COPD, coronary artery disease status post CABG, obstructive sleep apnea who was admitted on 09/04/2016 because of weakness. As per patient was his usual self last night and they went to sleep around 10 in the evening. This morning around 7 AM, she heard her vel for her. When she came to the room, she found him on the floor, and she could not make him stand up. She also noticed him to be slurring his speech. She called 911 and she and he was he was brought to the emergency room where he was found to have left-sided weakness mostly of his upper extremity. He was also having slurring of his speech and had a shallow nasolabial fold on his left. His CT scan showed no acute intracranial process, no hemorrhage. Because patient woke up with the deficit, exact time of onset could not really be established, and so TPA was not started. He was also on Coumadin. His EKG showed paced rhythm. He was then admitted for further evaluation and treatment. Patient is routinely on baby aspirin and Coumadin. His INR on 08/30/16 was 2.12 but today was 1.68. . We are not able to do MRI's on weekend but I told the family that it will not really change our management as clinically he has an acute CVA likely cardioembolic vs thrombotic. - Patient's Past Medical History Patient History - Medical: Diabetes Type 2 Patient History - Cardiac/Respiratory: Atrial Fibrillation, Coronary Heart Disease, CHF, Hypertension, CPAP/BiPAP Home Use, Sleep Apnea Patient History - Cancer: Colon, Chemotherapy history Patient History - Surgical Procedures: Cataracts, Colon Resection, Coronary Bypass Surgery, Pacemaker, Other Patient History - Other: None - Family History Father Family History - Medical: Family History - Cardiac/Respiratory: Hypertension Brother Family History - Medical: , Diabetes Type 1 Family History - Cardiac/Respiratory: Other - Social History Living Situations: significant other Abuse History: No History of abuse Psych History: No pertinent hx Does anyone smoke in the home?: No Alcohol Use: rarely Drug Use: none - Immunizations Immunizations Up to Date: Yes Hx Pneumococcal Vaccination: Yes History of Influenza Vaccine: Yes Allergies/Adverse Reactions: Allergies Allergy/AdvReac Type Severity Reaction Status Date / Time ketoprofen [From Oruvail] AdvReac Verified 09/04/16 10:17 metoprolol AdvReac Verified 09/04/16 10:17 rofecoxib [From Vioxx] AdvReac Verified 09/04/16 10:17 Home Medications: HOME MEDICATIONS Albuterol Sulfate [Albuterol Sulfate 0.63 MG/3ML] 2.5 mg IH Q4H PRN 06/12/12 [ Last Taken 06/12/12] Enalapril Maleate 10 mg PO HS 06/12/12 [Last Taken 06/12/12] Simvastatin [Zocor] 40 mg PO HS 06/12/12 [Last Taken 06/12/12] clonazePAM [Klonopin] 1 mg PO HS 06/12/12 [Last Taken 06/12/12] Furosemide [Lasix] 40 mg PO DAILY #30 tablet 06/15/12 [Last Taken Unknown] Potassium Chloride [K-Dur] 20 meq PO DAILY #30 tablet 06/15/12 [Last Taken Unknown] Lansoprazole [Prevacid] 30 mg PO BID 06/07/14 [Last Taken Unknown] Warfarin Sodium [Coumadin] 7 mg PO MOWEFR 06/07/14 [Last Taken Unknown] Warfarin Sodium [Coumadin] 9 mg PO SUTUTHSA 06/07/14 [Last Taken Unknown] glipiZIDE [Glucotrol] 10 mg PO BIDAC 06/07/14 [Last Taken Unknown] Aspirin [Aspirin Enteric Coated] 81 mg PO DAILY 02/14/16 [Last Taken Unknown] Multivitamin [One Daily Essential] 1 each PO DAILY 02/14/16 [Last Taken Unknown] Budesonide/Formoterol Fumarate [Symbicort 160-4.5 Mcg Inhaler] 2 puff IH BID [Last Taken Unknown] Clotrimazole [Lotrimin Cream] 15 gm TP BID 07/08/16 [Last Taken Unknown] Docusate Sodium [Colace] 200 mg PO HS PRN 07/08/16 [Last Taken Unknown] Ferrous Sulfate [Iron] 325 mg PO DAILY 07/08/16 [Last Taken Unknown] Nitroglycerin [Nitrostat] 0.4 mg SL Q5MIN PRN 07/08/16 [Last Taken Unknown] Zolpidem Tartrate [Ambien] 5 mg PO HS 07/08/16 [Last Taken Unknown] Calcium Carbonate [Calcium] 1,250 mg PO QID 08/24/16 [Last Taken Unknown] Isosorbide Mononitrate [Isosorbide Mononitrate ER] 15 mg PO DAILY 08/24/16 [ Last Taken Unknown] Magnesium 250 mg PO QID 08/24/16 [Last Taken Unknown] Probenecid/Colchicine [Probenecid-Colchicine Tabs] 1 tab PO BID PRN 08/24/16 [ Last Taken Unknown] Tamsulosin HCl 0.4 mg PO DAILY 08/24/16 [Last Taken Unknown] Triamcinolone Acetonide [Kenalog 0.025%] 1 appl TP BID PRN 08/24/16 [Last Taken Unknown] rOPINIRole HCL [Requip] 5 mg PO HS tablet 08/27/16 [Last Taken Unknown] Acetaminophen [Tylenol] 650 mg PO Q6H PRN 09/04/16 [Last Taken Unknown] Ammonium Lactate [Lac-Hydrin] 1 appl TP BID 09/04/16 [Last Taken Unknown] Fluticasone Propionate 50 mcg NS BID 09/04/16 [Last Taken Unknown] Exam - Exam Vital Signs: Vital Signs - Last Taken Temp 36.9 C 09/04/16 07:40 Pulse 70 09/04/16 08:55 Resp 20 09/04/16 08:55 BP 150/59 09/04/16 08:55 Pulse Ox 92 09/04/16 08:55 Diagnostic Studies: Laboratory Results WBC 10.7 K/mm3 (4.0-10.5) H 09/04/16 08:05 RBC 4.15 M/mm3 (4.7-6.0) L 09/04/16 08:05 Hgb 11.5 gm/dL (13.5-18.0) L 09/04/16 08:05 Hct 36.2 % (42.0-52.0) L 09/04/16 08:05 MCV 87.2 fl (78-100) 09/04/16 08:05 MCH 27.7 pg (27-31) 09/04/16 08:05 MCHC 31.8 g/dl (32-36) L 09/04/16 08:05 RDW 13.7 % (11.5-14.0) 09/04/16 08:05 Plt Count 253 K/mm3 (150-450) 09/04/16 08:05 MPV 9.4 fl (6.0-9.5) 09/04/16 08:05 Immature Gran % (Auto) 1.30 % (0.001-0.429) H 09/04/16 08:05 Immature Gran # (Auto) 0.14 K/mm3 (0.000-0.0310) H 09/04/16 08:05 Neutrophils % 67.5 % (42-75.0) 09/04/16 08:05 Lymphocytes % 23.6 % (20-51) 09/04/16 08:05 Monocytes % 4.9 % (0.0-9) 09/04/16 08:05 Eosinophils % 2.3 % (0.0-3.0) 09/04/16 08:05 Basophils % 0.4 % (0.0-1.0) 09/04/16 08:05 Nucleated RBC % 0.0 k/mm3 (0-1) 09/04/16 08:05 Neutrophils # 7.2 K/mm3 (1.3-6.0) H 09/04/16 08:05 Lymphocytes # 2.5 k/mm3 (1.5-3.5) 09/04/16 08:05 Monocytes # 0.5 k/mm3 (0.0-1.0) 09/04/16 08:05 Eosinophils # 0.3 k/mm3 (0.0-0.7) 09/04/16 08:05 Absolute Basophils 0.0 k/mm3 (0.0-0.1) 09/04/16 08:05 ESR 43 mm/hr (0-10) H 09/04/16 08:05 PT 17.6 Seconds (9.4-11.4) H 09/04/16 08:16 INR (Anticoag Therapy) 1.69 INR (0.90-1.10) H 09/04/16 08:16 PTT (Turner) 31.7 Seconds (24-32) 09/04/16 08:16 Sodium 137 mmol/L (132-142) 09/04/16 08:05 Plasma Sodium 138 mmol/L (130-142) 09/04/16 08:05 Potassium 5.0 mmol/L (3.4-4.6) H D 09/04/16 08:05 Chloride 99 mmol/L (97-106) 09/04/16 08:05 Carbon Dioxide 32.7 mmol/L (24-32.6) H 09/04/16 08:05 Anion Gap 10.3 mmol/L (6.8-13.8) 09/04/16 08:05 BUN 29 mg/dL (6-23) H D 09/04/16 08:05 Creatinine 0.97 mg/dL (0.4-1.4) 09/04/16 08:05 Est GFR (Non-Af Amer) 80 mL/min (60-130) 09/04/16 08:05 BUN/Creatinine Ratio 29.9 (9.0-21.6) H 09/04/16 08:05 Random Glucose 189 mg/dL (70-110) H 09/04/16 08:05 Calcium 9.3 mg/dL (7.9-10.9) 09/04/16 08:05 Calcium Adj for Albumin 9.7 mg/dL (8.4-10.2) 09/04/16 08:05 Total Bilirubin 0.3 mg/dL (0.0-1.1) 09/04/16 08:05 AST 53 U/L (0-48) H 09/04/16 08:05 ALT 60 U/L (19-67) 09/04/16 08:05 Alkaline Phosphatase 98 U/L (50-170) 09/04/16 08:05 Total Protein 7.2 gm/dL (6.2-8.2) 09/04/16 08:05 Albumin 3.1 gm/dl (3.4-5.0) L 09/04/16 08:05 Assessment/Plan - Assessment/Plan (1) CVA (cerebral vascular accident) Assessment: likely cardioembolic with h/o AFib. INR subtherapeutic. cannot rule out thrombotic. we do not have MRI on weekends but will not change our management. will add ESR, CUS, Echo with bubble study. add Plavix for now. keep NPO to prevent aspiration. will get PT/OT/ST. get MRI on Tuesday. ADDENDUM: cannot take oral fluid- will try nectar consistent fluids if ST is not available today. if not successful. will give his ASA rectally, maybe do lovenox for his coumadin for now. will hold clopidrogel for now. will give his enalapril as IV vasotec and IV Lasix, nexium as IV protonix. will do accuchecks. Problem: Acute Qualifiers: CVA mechanism: unspecified Qualified Code(s): I63.9 - Cerebral infarction, unspecified (2) Afib Assessment: INR 1.69. increase Coumadin dose. Problem: Chronic Qualifiers: Atrial fibrillation type: chronic Qualified Code(s): I48.2 - Chronic atrial fibrillation (3) COPD (chronic obstructive pulmonary disease) Assessment: continue with his inhalers. Problem: Acute (4) Coronary artery disease Problem: Acute Qualifiers: Coronary Disease-Associated Artery/Lesion type: bypass graft [place] vs. transplanted heart: [place] heart Associated angina: without angina Qualified Code(s): I25.810 - Atherosclerosis of coronary artery bypass graft(s) without angina pectoris (5) BPH (benign prostatic hyperplasia) Problem: Chronic Qualifiers: (6) Diabetes Problem: Chronic Qualifiers: (7) BENJAMIN (obstructive sleep apnea) Assessment: will need to hold his CPAP for now due to his acute CVA. Problem: Chronic
[2016-09-04] MEDS ORDERED: ASPIRIN 300 MG SUPP.RECT RC ONE (10:35)
[2016-09-04] MEDS: NORMAL SALINE 1,000 ML IV PRN ×2 (10:41→19:04)
[2016-09-04] MEDS ORDERED: PANTOPRAZOLE SODIUM 40 MG in NORMAL SALINE 100 ML IV SCH (10:45)
[2016-09-04] MEDS ORDERED: ALBUTEROL SULFATE 2.5 MG/3 ML VIAL.NEB IH PRN (10:51)
[2016-09-04] MEDS ORDERED: NITROGLYCERIN 0.4 MG/TAB BTL SL PRN (15:26)
[2016-09-04] MEDS ORDERED: COLCHICINE PO PRN (15:26)
[2016-09-04] MEDS ORDERED: DOCUSATE SODIUM 100 MG CAPSULE PO PRN (15:26)
[2016-09-04] MEDS ORDERED: PROBENECID PO PRN (15:26)
[2016-09-04] MEDS ORDERED: WARFARIN SODIUM 5 MG TABLET ONE (16:35)
[2016-09-04] MEDS: CEPHALEXIN MONOHYDRATE 500 MG CAPSULE PO SCH ×2 (16:36→23:31)
[2016-09-04] MEDS ORDERED: CEPHALEXIN MONOHYDRATE 250 MG CAPSULE ONE ×2 (16:36→20:41)
[2016-09-04] MEDS: INSULIN LISPRO 100 UNITS/ML VIAL SC SCH (16:46)
[2016-09-04] MEDS ORDERED: WARFARIN SODIUM 10 MG TABLET PO SCH (17:00)
[2016-09-04] MEDS: TAMSULOSIN HCL 0.4 MG CAP.SR.24H PO SCH (18:03)
[2016-09-04] MEDS: AMMONIUM LACTATE 225 APPL BTL TP SCH (20:37)
[2016-09-04] MEDS: CLOTRIMAZOLE 15 APPL TUBE TP SCH (20:37)
[2016-09-04] MEDS: FLUTICASONE/SALMETEROL 14 PUFF DISK.W.DEV IH SCH (20:37)
[2016-09-04] MEDS: SIMVASTATIN 40 MG TABLET PO SCH (20:42)
[2016-09-04] MEDS: clonazePAM 1 MG TABLET PO SCH (20:42)
[2016-09-04] MEDS: ENALAPRIL MALEATE 5 MG TABLET PO SCH (20:43)
[2016-09-04] MEDS ORDERED: ENALAPRIL MALEATE 5 MG TABLET PO SCH (21:00)
[2016-09-05] MEDS: NORMAL SALINE 1,000 ML IV PRN ×2 (03:10→19:20)
[2016-09-05 05:33] LABS: Hematocrit 31.9 % (42.0-52.0); Hemoglobin 10.3 gm/dL (13.5-18.0); Mean Cell Volume 87.4 fl (78-100); Mean Corpuscular Hemoglobin 28.2 pg (27-31); Mean Corpuscular Hgb Conc 32.3 g/dl (32-36); Mean Platelet Volume 9.3 fl (6.0-9.5); Neutrophil # 8.8 K/mm3 (1.3-6.0); Platelet Count 250 K/mm3 (150-450); Red Blood Count 3.65 M/mm3 (4.7-6.0); Red Cell Distribution Width 13.6 % (11.5-14.0); White Blood Count 11.3 K/mm3 (4.0-10.5)
[2016-09-05 05:44] LABS: Prothrombin Time (Patient) 17.6 Seconds (9.4-11.4)
[2016-09-05 05:45] LABS: Anion Gap 10.1 mmol/L (6.8-13.8); BUN/Creatinine Ratio 23.1 (9.0-21.6); Calcium * 8.4 mg/dL (7.9-10.9); Carbon Dioxide 28.5 mmol/L (24-32.6); Estimated Creat Clear 83.1; Potassium 4.6 mmol/L (3.4-4.6)
[2016-09-05 05:50] LABS: INR 1.69 INR (0.90-1.10)
[2016-09-05] MEDS: INSULIN LISPRO 100 UNITS/ML VIAL SC SCH ×3 (07:07→17:11)
[2016-09-05] MEDS ORDERED: WARFARIN SODIUM 10 MG TABLET PO SCH (07:08)
[2016-09-05] MEDS ORDERED: TRIAMCINOLONE ACETONIDE 15 APPL TUBE TP PRN (07:14)
--- NOTE | 2016-09-05 08:00 | PN ---
Subjective - Date and Time Seen Date: 09/05/16 Time: 07:55 Subjective Narrative: Dense left paresis. Dysarthria. Otherwise ok. Right handed. Objective - Review of Systems Generalized/Overall Review: Reports: No Symptoms Reported EENTM: Reports: No Symptoms Reported Respiratory: Reports: No Symptoms Reported Cardiac: Reports: No Symptoms Reported Abdominal: Reports: No Symptoms Reported Genitourinary Symptoms: Reports: No Symptoms Reported Musculoskeletal Complaints: Reports: No Symptoms Reported Neurological: Reports: Other - HPI Skin: Reports: No Symptoms Reported Endocrine: Reports: No Symptoms Reported Misc: All systems neg except as marked - Vitals Vitals: Last Vital Signs Selected Entries 09/05/16 07:21 Temperature 37.3 C Temperature Temporal Artery Source Scan Pulse Rate 69 Respiratory 20 Rate Blood Pressure 151/42 Blood Pressure Supine Position O2 Sat by Pulse 93 Oximetry Oxygen Delivery Room Air Method - Abnormal Lab Findings Abnormal Lab Findings: Abnormal Lab Results 09/05/16 09/05/16 09/05/16 Range/Units 05:00 05:00 05:00 WBC 11.3 H (4.0-10.5) K/mm3 RBC 3.65 L (4.7-6.0) M/mm3 Hgb 10.3 L (13.5-18.0) gm/dL Hct 31.9 L (42.0-52.0) % Immature Gran % (Auto) 1.00 H (0.001-0.429) % Immature Gran # (Auto) 0.11 H (0.000-0.0310) K/mm3 Neutrophils % 78.0 H (42-75.0) % Lymphocytes % 14.9 L (20-51) % Neutrophils # 8.8 H (1.3-6.0) K/mm3 PT 17.6 H (9.4-11.4) Seconds INR (Anticoag Therapy) 1.69 H (0.90-1.10) INR BUN/Creatinine Ratio 23.1 H (9.0-21.6) - Exam Constitutional: Present: Alert, Oriented x3, Cooperative ENT Exam: Present: normal ENT inspection, hearing grossly normal Respiratory: Present: normal breath sounds, no respiratory distress Cardiovascular/Chest: Present: regular rate, rhythm, no chest tenderness Abdomen: Present: Normal bowel sounds, soft, nontender, nondistended, no rebound tenderness, no hepatospenomegaly, no masses Extremity: Present: pedal edema Skin Exam: Present: normal color, warm/dry, no cyanosis Neurologic: Present: alert, oriented x 3, motor weakness - left side Appearance: Present: appropriate appearance, appropriate insight, neat, no memory impairment Eye contact: Present: cooperative, good eye contact, other - dysarthria Thoughts: Present: normal thought pattern Assessment/Plan Plan Narrative: Adjust coumadin. BiPap as at home. Follow labs. Bipap as at home. - Problems/Diagnosis (1) CVA (cerebral vascular accident) Problem: Acute Qualifiers: CVA mechanism: unspecified Qualified Code(s): I63.9 - Cerebral infarction, unspecified (2) Coronary artery disease Problem: Acute Qualifiers: Coronary Disease-Associated Artery/Lesion type: bypass graft [place] vs. transplanted heart: [place] heart Associated angina: without angina Qualified Code(s): I25.810 - Atherosclerosis of coronary artery bypass graft(s) without angina pectoris (3) COPD (chronic obstructive pulmonary disease) Problem: Acute (4) Afib Problem: Chronic Qualifiers: Atrial fibrillation type: chronic Qualified Code(s): I48.2 - Chronic atrial fibrillation (5) BPH (benign prostatic hyperplasia) Problem: Chronic Qualifiers: (6) Diabetes Problem: Chronic Qualifiers: (7) Diastolic dysfunction Problem: Chronic (8) HTN (hypertension) Problem: Chronic Qualifiers: Hypertension type: essential hypertension Qualified Code(s): I10 - Essential (primary) hypertension (9) BENJAMIN (obstructive sleep apnea) Problem: Chronic (10) Pulmonary hypertension Problem: Chronic (11) CHF (congestive heart failure) Problem: Resolved Qualifiers: Congestive heart failure type: diastolic Congestive heart failure chronicity: acute on chronic Qualified Code(s): I50.33 - Acute on chronic diastolic (congestive) heart failure
[2016-09-05] MEDS: CEPHALEXIN MONOHYDRATE 500 MG CAPSULE PO SCH ×3 (08:41→23:47)
[2016-09-05] MEDS ORDERED: FLUTICASONE PROPIONATE 120 SPRAY INHALER NS SCH (09:00)
[2016-09-05] MEDS: FLUTICASONE/SALMETEROL 14 PUFF DISK.W.DEV IH SCH ×2 (09:36→20:34)
[2016-09-05] MEDS: FERROUS SULFATE 325 MG TABLET PO SCH (09:37)
[2016-09-05] MEDS: ISOSORBIDE MONONITRATE 30 MG TAB.SR.24H PO SCH (09:38)
[2016-09-05] MEDS: AMMONIUM LACTATE 225 APPL BTL TP SCH ×2 (09:38→20:43)
[2016-09-05] MEDS: CALCIUM CARBONATE 500 MG TAB.CHEW PO SCH ×4 (09:39→20:38)
[2016-09-05] MEDS: CLOTRIMAZOLE 15 APPL TUBE TP SCH ×2 (09:39→20:36)
[2016-09-05] MEDS: PANTOPRAZOLE SODIUM 40 MG TABLET.EC PO SCH ×2 (09:39→20:36)
[2016-09-05] MEDS: MAGNESIUM OXIDE 400 MG TABLET PO SCH ×4 (09:39→20:36)
[2016-09-05] MEDS: CLOPIDOGREL BISULFATE 75 MG TABLET PO SCH (09:39)
[2016-09-05] MEDS: MULTIVITAMINS 1 CAP CAPSULE PO SCH (09:39)
[2016-09-05] MEDS: ASPIRIN 81 MG TABLET.DR PO SCH (09:45)
[2016-09-05] MEDS: FUROSEMIDE 40 MG TABLET PO SCH (09:45)
[2016-09-05] MEDS: POTASSIUM CHLORIDE 20 MEQ TABLET.SA PO SCH (09:45)
[2016-09-05] MEDS: WARFARIN SODIUM PO SCH ×2 (16:17)
[2016-09-05] MEDS: glipiZIDE 10 MG TABLET PO SCH (16:18)
[2016-09-05] MEDS ORDERED: glipiZIDE 5 MG TABLET PO SCH (17:00)
[2016-09-05] MEDS: TAMSULOSIN HCL 0.4 MG CAP.SR.24H PO SCH (17:43)
[2016-09-05] MEDS: ACETAMINOPHEN 325 MG TABLET PO PRN (18:49)
[2016-09-05] MEDS: ENALAPRIL MALEATE 5 MG TABLET PO SCH (20:37)
[2016-09-05] MEDS: rOPINIRole HCL 1 MG TABLET PO SCH (20:37)
[2016-09-05] MEDS: SIMVASTATIN 40 MG TABLET PO SCH (20:38)
[2016-09-05] MEDS: clonazePAM 1 MG TABLET PO SCH (20:41)
[2016-09-05] MEDS: ZOLPIDEM TARTRATE 5 MG TABLET PO SCH (20:41)
[2016-09-05] MEDS: FLUTICASONE PROPIONATE 120 SPRAY INHALER NS SCH (20:42)
[2016-09-06] MEDS: NORMAL SALINE 1,000 ML IV PRN ×3 (03:20→20:55)
[2016-09-06 06:01] LABS: Hematocrit 32.4 % (42.0-52.0); Hemoglobin 10.1 gm/dL (13.5-18.0); Mean Corpuscular Hemoglobin 27.4 pg (27-31); Mean Corpuscular Hgb Conc 31.2 g/dl (32-36); Mean Platelet Volume 9.4 fl (6.0-9.5); Neutrophil # 5.3 K/mm3 (1.3-6.0); Neutrophil % 69.7 % (42-75.0); Platelet Count 223 K/mm3 (150-450); Red Blood Count 3.68 M/mm3 (4.7-6.0); Red Cell Distribution Width 13.7 % (11.5-14.0); White Blood Count 7.6 K/mm3 (4.0-10.5)
[2016-09-06 06:10] LABS: Anion Gap 12.4 mmol/L (6.8-13.8); BUN/Creatinine Ratio 21.9 (9.0-21.6); Calcium * 8.2 mg/dL (7.9-10.9); Carbon Dioxide 26.7 mmol/L (24-32.6); Estimated Creat Clear 88.8; Potassium 4.1 mmol/L (3.4-4.6)
[2016-09-06 06:16] LABS: Prothrombin Time (Patient) 18.5 Seconds (9.4-11.4)
[2016-09-06 06:20] LABS: INR 1.78 INR (0.90-1.10)
[2016-09-06] MEDS ORDERED: COLCHICINE 0.6 MG TABLET PO PRN (06:24)
[2016-09-06] MEDS ORDERED: PROBENECID 500 MG TABLET PO PRN (06:27)
[2016-09-06] MEDS: INSULIN LISPRO 100 UNITS/ML VIAL SC SCH ×3 (07:08→17:52)
[2016-09-06] MEDS: CEPHALEXIN MONOHYDRATE 500 MG CAPSULE PO SCH ×3 (07:09→23:57)
[2016-09-06] MEDS: glipiZIDE 10 MG TABLET PO SCH ×2 (07:09→16:18)
[2016-09-06] MEDS: PANTOPRAZOLE SODIUM 40 MG TABLET.EC PO SCH ×2 (07:09→20:13)
--- NOTE | 2016-09-06 09:13 | PN ---
Subjective - Date and Time Seen Date: 09/06/16 Time: 09:11 Subjective Narrative: Dense left paresis. Dysarthria. Improving. Right handed. Objective - Review of Systems Generalized/Overall Review: Reports: Weakness EENTM: Reports: No Symptoms Reported Respiratory: Reports: No Symptoms Reported Cardiac: Reports: No Symptoms Reported Abdominal: Reports: No Symptoms Reported Genitourinary Symptoms: Reports: No Symptoms Reported Musculoskeletal Complaints: Reports: No Symptoms Reported Neurological: Reports: No Symptoms Reported Skin: Reports: No Symptoms Reported Endocrine: Reports: No Symptoms Reported Misc: All systems neg except as marked - Vitals Vitals: Last Vital Signs Selected Entries 09/06/16 06:38 Temperature 36.4 C L Temperature Temporal Artery Source Scan Pulse Rate 70 Respiratory 12 Rate Blood Pressure 145/59 O2 Sat by Pulse 93 Oximetry Oxygen Delivery Room Air Method - Abnormal Lab Findings Abnormal Lab Findings: Abnormal Lab Results 09/06/16 09/06/16 09/06/16 Range/Units 05:35 05:35 05:35 RBC 3.68 L (4.7-6.0) M/mm3 Hgb 10.1 L (13.5-18.0) gm/dL Hct 32.4 L (42.0-52.0) % MCHC 31.2 L (32-36) g/dl Immature Gran % (Auto) 1.20 H (0.001-0.429) % Immature Gran # (Auto) 0.09 H (0.000-0.0310) K/mm3 Lymphocytes % 18.1 L (20-51) % Lymphocytes # 1.4 L (1.5-3.5) k/mm3 PT 18.5 H (9.4-11.4) Seconds INR (Anticoag Therapy) 1.78 H (0.90-1.10) INR BUN/Creatinine Ratio 21.9 H (9.0-21.6) Random Glucose 120 H (70-110) mg/dL - Exam Constitutional: Present: Alert, Oriented x3, Cooperative, Well developed, Well nourished, No distress ENT Exam: Present: normal ENT inspection, hearing grossly normal Neck: Present: normal inspection Respiratory: Present: normal breath sounds, no respiratory distress Cardiovascular/Chest: Present: no murmur, irregularly irregular Abdomen: Present: Normal bowel sounds, soft, nontender, nondistended, no rebound tenderness, no hepatospenomegaly, no masses Extremity: Present: normal inspection, no pedal edema Skin Exam: Present: normal color, warm/dry, no cyanosis Neurologic: Present: alert, other - left hemiparesis, dysarthria Eye contact: Present: cooperative, good eye contact Thoughts: Present: normal thought pattern Assessment/Plan Plan Narrative: continue coumadin, PT, OT, arrange inpatient rehab. - Problems/Diagnosis (1) CVA (cerebral vascular accident) Problem: Acute Qualifiers: CVA mechanism: unspecified Qualified Code(s): I63.9 - Cerebral infarction, unspecified (2) Coronary artery disease Problem: Acute Qualifiers: Coronary Disease-Associated Artery/Lesion type: bypass graft [place] vs. transplanted heart: [place] heart Associated angina: without angina Qualified Code(s): I25.810 - Atherosclerosis of coronary artery bypass graft(s) without angina pectoris (3) COPD (chronic obstructive pulmonary disease) Problem: Acute (4) Afib Problem: Chronic Qualifiers: Atrial fibrillation type: chronic Qualified Code(s): I48.2 - Chronic atrial fibrillation (5) BPH (benign prostatic hyperplasia) Problem: Chronic Qualifiers: (6) Diabetes Problem: Chronic Qualifiers: (7) Diastolic dysfunction Problem: Chronic (8) HTN (hypertension) Problem: Chronic Qualifiers: Hypertension type: essential hypertension Qualified Code(s): I10 - Essential (primary) hypertension (9) BENJAMIN (obstructive sleep apnea) Problem: Chronic (10) Pulmonary hypertension Problem: Chronic (11) CHF (congestive heart failure) Problem: Resolved Qualifiers: Congestive heart failure type: diastolic Congestive heart failure chronicity: acute on chronic Qualified Code(s): I50.33 - Acute on chronic diastolic (congestive) heart failure
[2016-09-06] MEDS: AMMONIUM LACTATE 225 APPL BTL TP SCH ×2 (10:16→20:15)
[2016-09-06] MEDS: CLOTRIMAZOLE 15 APPL TUBE TP SCH ×2 (10:16→20:15)
[2016-09-06] MEDS: MAGNESIUM OXIDE 400 MG TABLET PO SCH ×4 (10:17→20:12)
[2016-09-06] MEDS: CLOPIDOGREL BISULFATE 75 MG TABLET PO SCH (10:17)
[2016-09-06] MEDS: POTASSIUM CHLORIDE 20 MEQ TABLET.SA PO SCH (10:17)
[2016-09-06] MEDS: ISOSORBIDE MONONITRATE 30 MG TAB.SR.24H PO SCH (10:17)
[2016-09-06] MEDS: ASPIRIN 81 MG TABLET.DR PO SCH (10:17)
[2016-09-06] MEDS: CALCIUM CARBONATE 500 MG TAB.CHEW PO SCH ×4 (10:17→20:12)
[2016-09-06] MEDS: FLUTICASONE/SALMETEROL 14 PUFF DISK.W.DEV IH SCH ×2 (10:18→20:14)
[2016-09-06] MEDS: FERROUS SULFATE 325 MG TABLET PO SCH (10:18)
[2016-09-06] MEDS: MULTIVITAMINS 1 CAP CAPSULE PO SCH (10:18)
[2016-09-06] MEDS: FLUTICASONE PROPIONATE 120 SPRAY INHALER NS SCH ×2 (10:18→20:14)
[2016-09-06] MEDS: FUROSEMIDE 40 MG TABLET PO SCH (10:18)
[2016-09-06] MEDS: ACETAMINOPHEN 325 MG TABLET PO PRN ×2 (10:23→20:10)
--- NOTE | 2016-09-06 14:28 | ECHO ---
This report is available in the EMR
[2016-09-06] MEDS: WARFARIN SODIUM PO SCH ×2 (16:19)
[2016-09-06] MEDS: TAMSULOSIN HCL 0.4 MG CAP.SR.24H PO SCH (17:46)
[2016-09-06] MEDS: rOPINIRole HCL 1 MG TABLET PO SCH (20:09)
[2016-09-06] MEDS: clonazePAM 1 MG TABLET PO SCH (20:10)
[2016-09-06] MEDS: ZOLPIDEM TARTRATE 5 MG TABLET PO SCH (20:10)
[2016-09-06] MEDS: SIMVASTATIN 40 MG TABLET PO SCH (20:13)
[2016-09-06] MEDS: ENALAPRIL MALEATE 5 MG TABLET PO SCH (20:13)
[2016-09-07] MEDS: NORMAL SALINE 1,000 ML IV PRN (05:03)
[2016-09-07] MEDS: INSULIN LISPRO 100 UNITS/ML VIAL SC SCH ×2 (06:27→11:28)
[2016-09-07] MEDS: PANTOPRAZOLE SODIUM 40 MG TABLET.EC PO SCH (07:51)
[2016-09-07] MEDS: glipiZIDE 10 MG TABLET PO SCH (07:51)
[2016-09-07] MEDS: CEPHALEXIN MONOHYDRATE 500 MG CAPSULE PO SCH (07:52)
[2016-09-07] MEDS: AMMONIUM LACTATE 225 APPL BTL TP SCH (09:37)
[2016-09-07] MEDS: FLUTICASONE PROPIONATE 120 SPRAY INHALER NS SCH (09:38)
[2016-09-07] MEDS: MAGNESIUM OXIDE 400 MG TABLET PO SCH ×2 (09:38→13:11)
[2016-09-07] MEDS: FLUTICASONE/SALMETEROL 14 PUFF DISK.W.DEV IH SCH (09:38)
[2016-09-07] MEDS: ISOSORBIDE MONONITRATE 30 MG TAB.SR.24H PO SCH (09:38)
[2016-09-07] MEDS: FUROSEMIDE 40 MG TABLET PO SCH (09:39)
[2016-09-07] MEDS: FERROUS SULFATE 325 MG TABLET PO SCH (09:39)
[2016-09-07] MEDS: ASPIRIN 81 MG TABLET.DR PO SCH (09:39)
[2016-09-07] MEDS: POTASSIUM CHLORIDE 20 MEQ TABLET.SA PO SCH (09:39)
[2016-09-07] MEDS: CLOPIDOGREL BISULFATE 75 MG TABLET PO SCH (09:40)
[2016-09-07] MEDS: CALCIUM CARBONATE 500 MG TAB.CHEW PO SCH ×2 (09:40→13:11)
[2016-09-07] MEDS: MULTIVITAMINS 1 CAP CAPSULE PO SCH (09:40)
[2016-09-07] MEDS: CLOTRIMAZOLE 15 APPL TUBE TP SCH (09:40)
[2016-09-07 09:41] VITALS: BP 148/60
--- NOTE | 2016-09-07 12:20 | DS ---
(1) CVA (cerebral vascular accident) Problem: Acute Qualifiers: CVA mechanism: embolism Laterality of affected vessel: right Qualified Code(s): I63.9 - Cerebral infarction, unspecified (2) Coronary artery disease Problem: Acute Qualifiers: Coronary Disease-Associated Artery/Lesion type: bypass graft [place] vs. transplanted heart: [place] heart Associated angina: without angina Qualified Code(s): I25.810 - Atherosclerosis of coronary artery bypass graft(s) without angina pectoris (3) COPD (chronic obstructive pulmonary disease) Problem: Chronic Qualifiers: COPD type: chronic bronchitis Chronic bronchitis type: simple Qualified Code(s): J41.0 - Simple chronic bronchitis (4) Afib Problem: Chronic Qualifiers: Atrial fibrillation type: chronic Qualified Code(s): I48.2 - Chronic atrial fibrillation (5) BPH (benign prostatic hyperplasia) Problem: Chronic Qualifiers: Lower urinary tract symptom presence: symptoms absent Qualified Code(s): N40.0 - Benign prostatic hyperplasia without lower urinary tract symptoms (6) Diabetes Problem: Chronic Qualifiers: Diabetes mellitus type: type 2 (7) Diastolic dysfunction Problem: Chronic (8) HTN (hypertension) Problem: Chronic Qualifiers: Hypertension type: essential hypertension Qualified Code(s): I10 - Essential (primary) hypertension (9) BENJAMIN (obstructive sleep apnea) Problem: Chronic (10) Pulmonary hypertension Problem: Chronic (11) CHF (congestive heart failure) Problem: Chronic Qualifiers: Congestive heart failure type: diastolic Congestive heart failure chronicity: chronic Qualified Code(s): I50.32 - Chronic diastolic (congestive ) heart failure Description of Stay: Plavix added. Coumadin adjusted. PT/OT/ST consulted. Patient improving. Echocardiogram, Heat CT, and carotid dopplers added no new information. Arrangements have now been made to transfer him to [facility]. I have spoken by phone with Dr. Robbins, who will be the receiving doctor. Procedures Performed: none Discharge Disposition: [facility] Disposition: [facility] Condition: Stable Discharge Activity: Activity as tolerated Discharge Diet: Other - Pureed, nectar liquids, consistent carbs [facility]ent[facility] Therapy: Physicial Therapy, Occupation Therapy, Speech Therapy Referrals: Kenny Uribe MD [Primary Care Provider] - Problem Oriented Discharge Instructions to Patient/Family: Stroke Prevention Complete Home Medications List: Complete Home Medication List: Albuterol Sulfate [Albuterol Sulfate 0.63 MG/3ML] 2.5 mg IH Q4H PRN 06/12/12 Enalapril Maleate 10 mg PO HS 06/12/12 Simvastatin [Zocor] 40 mg PO HS 06/12/12 clonazePAM [Klonopin] 1 mg PO HS 06/12/12 Furosemide [Lasix] 40 mg PO DAILY #30 tablet 06/15/12 Potassium Chloride [K-Dur] 20 meq PO DAILY #30 tablet 06/15/12 Lansoprazole [Prevacid] 30 mg PO BID 06/07/14 glipiZIDE [Glucotrol] 10 mg PO BIDAC 06/07/14 Aspirin [Aspirin Enteric Coated] 81 mg PO DAILY 02/14/16 Multivitamin [One Daily Essential] 1 each PO DAILY 02/14/16 Budesonide/Formoterol Fumarate [Symbicort 160-4.5 Mcg Inhaler] 2 puff IH BID Clotrimazole [Lotrimin Cream] 15 gm TP BID 07/08/16 Docusate Sodium [Colace] 200 mg PO HS PRN 07/08/16 Ferrous Sulfate [Iron] 325 mg PO DAILY 07/08/16 Nitroglycerin [Nitrostat] 0.4 mg SL Q5MIN PRN 07/08/16 Zolpidem Tartrate [Ambien] 5 mg PO HS 07/08/16 Calcium Carbonate [Calcium] 1,250 mg PO QID 08/24/16 Isosorbide Mononitrate [Isosorbide Mononitrate ER] 15 mg PO DAILY 08/24/16 Magnesium 250 mg PO QID 08/24/16 Probenecid/Colchicine [Probenecid-Colchicine Tabs] 1 tab PO BID PRN 08/24/16 Tamsulosin HCl 0.4 mg PO DAILY 08/24/16 Triamcinolone Acetonide [Kenalog 0.025%] 1 appl TP BID PRN 08/24/16 rOPINIRole HCL [Requip] 5 mg PO HS tablet 08/27/16 Acetaminophen [Tylenol] 650 mg PO Q6H PRN 09/04/16 Ammonium Lactate [Lac-Hydrin] 1 appl TP BID 09/04/16 Fluticasone Propionate 50 mcg NS BID 09/04/16 Clopidogrel Bisulfate [Plavix] 75 mg PO DAILY tablet 09/07/16 Colchicine 0.6 mg PO BID PRN #0 tablet 09/07/16 Insulin Lispro [Humalog] 0 - 21 units SC ACINS vial 09/07/16 Warfarin Sodium [Coumadin] 11 mg PO DAILY@1700 tablet 09/07/16
== END 2016-09-07 13:51 | disposition short-term general hospital (02) | DRG 65 ==
LOC: ER 07:39 → SUPCPDRO 07:39 → MS 09:24
PROVIDERS: ADMIT Internal Medicine; ATTEND Allergy & Immunology
PROC: B246ZZZ Ultrasonography of Right and Left Heart (ICD-10-PCS; principal; 2016-09-05)
DX: I63.9 Cerebral infarction, unspecified (principal); G81.94 Hemiplegia, unspecified affecting left nondominant side; I25.810 Atherosclerosis of coronary artery bypass graft(s) without angina pectoris; I50.32 Chronic diastolic (congestive) heart failure; R47.1 Dysarthria and anarthria; R13.10 Dysphagia, unspecified; I48.2 Chronic atrial fibrillation; J44.9 Chronic obstructive pulmonary disease, unspecified; E11.9 Type 2 diabetes mellitus without complications; N40.0 Benign prostatic hyperplasia without lower urinary tract symptoms; I27.2 Other secondary pulmonary hypertension; Z79.01 Long term (current) use of anticoagulants; Z79.82 Long term (current) use of aspirin

== ENCOUNTER 2016-11-14 13:19 | Inpatient (IN) | payer MEDICARE, BC ==
[2016-11-14 13:57] LABS: Hematocrit 32.5 % (42.0-52.0); Hemoglobin 10.5 gm/dL (13.5-18.0); Mean Cell Volume 87.8 fl (78-100); Mean Corpuscular Hemoglobin 28.4 pg (27-31); Mean Corpuscular Hgb Conc 32.3 g/dl (32-36); Mean Platelet Volume 10.4 fl (6.0-9.5); Neutrophil # 4.1 K/mm3 (1.3-6.0); Platelet Count 117 K/mm3 (150-450); Red Cell Distribution Width 13.8 % (11.5-14.0); White Blood Count 6.3 K/mm3 (4.0-10.5)
[2016-11-14 14:07] LABS: INR 1.52 INR (0.90-1.10); Partial Thrombolplastin Time 41.8 Seconds (24-32); Prothrombin Time (Patient) 15.8 Seconds (9.4-11.4)
[2016-11-14 14:16] LABS: Anion Gap 13.1 mmol/L (6.8-13.8); BUN/Creatinine Ratio 20.4 (9.0-21.6); Bilirubin, Total 0.5 mg/dL (0.0-1.1); Ca. Corrected For Albumin 8.6 mg/dL (8.4-10.2); Calcium * 8.1 mg/dL (7.9-10.9); Carbon Dioxide 26.7 mmol/L (24-32.6); Potassium 4.8 mmol/L (3.4-4.6); Total Protein 6.6 gm/dL (6.2-8.2); Troponin I 0.024 ng/ml (0.00-0.10)
[2016-11-14] MEDS ORDERED: NITROGLYCERIN 0.4 MG/TAB BTL SL ONE (15:02)
[2016-11-14] MEDS: NITROGLYCERIN 0.4 MG/TAB BTL SL PRN ×2 (15:11→15:16)
[2016-11-14] MEDS ORDERED: ALBUTEROL SULFATE/IPRATROPIUM 3 ML NEBU IH ONE ×2 (15:15→15:17)
[2016-11-14] MEDS ORDERED: METHYLPREDNISOLONE SOD SUCC/PF 40 MG/ML VIAL IV ONE (15:16)
--- NOTE | 2016-11-14 15:20 | ERNOTE ---
Chest Pain/Cardiac HPI Chief Complaint: Chest Pain Time Seen by Provider: 11/14/16 13:39 Source: patient, family Immunizations: IMMUNIZATION HX Immunizations Up to Date Yes History of Influenza Vaccine Yes Hx Pneumococcal Vaccination Yes Allergies/Adverse Reactions: Allergies ketoprofen [From Oruvail] Adverse Reaction (Verified 11/14/16 13:41) metoprolol Adverse Reaction (Verified 11/14/16 13:41) rofecoxib [From Vioxx] Adverse Reaction (Verified 11/14/16 13:41) Home Medications: HOME MEDICATIONS Albuterol Sulfate [Albuterol Sulfate 0.63 MG/3ML] 2.5 mg IH Q4H PRN 06/12/12 [ Last Taken 06/12/12] Enalapril Maleate 10 mg PO HS 06/12/12 [Last Taken 06/12/12] Simvastatin [Zocor] 40 mg PO HS 06/12/12 [Last Taken 06/12/12] clonazePAM [Klonopin] 1 mg PO HS 06/12/12 [Last Taken 06/12/12] Furosemide [Lasix] 40 mg PO DAILY #30 tablet 06/15/12 [Last Taken Unknown] Potassium Chloride [K-Dur] 20 meq PO DAILY #30 tablet 06/15/12 [Last Taken Unknown] Lansoprazole [Prevacid] 30 mg PO BID 06/07/14 [Last Taken Unknown] glipiZIDE [Glucotrol] 10 mg PO BIDAC 06/07/14 [Last Taken Unknown] Multivitamin [One Daily Essential] 1 each PO DAILY 02/14/16 [Last Taken Unknown] Budesonide/Formoterol Fumarate [Symbicort 160-4.5 Mcg Inhaler] 2 puff IH BID [Last Taken Unknown] Clotrimazole [Lotrimin Cream] 15 gm TP BID 07/08/16 [Last Taken Unknown] Ferrous Sulfate [Iron] 325 mg PO DAILY 07/08/16 [Last Taken Unknown] Nitroglycerin [Nitrostat] 0.4 mg SL Q5MIN PRN 07/08/16 [Last Taken Unknown] Zolpidem Tartrate [Ambien] 5 mg PO HS 07/08/16 [Last Taken Unknown] Calcium Carbonate [Calcium] 1,250 mg PO QID 08/24/16 [Last Taken Unknown] Isosorbide Mononitrate [Isosorbide Mononitrate ER] 15 mg PO DAILY 08/24/16 [ Last Taken Unknown] Tamsulosin HCl 0.8 mg PO DAILY 08/24/16 [Last Taken Unknown] Triamcinolone Acetonide [Kenalog 0.025%] 1 appl TP BID PRN 08/24/16 [Last Taken Unknown] rOPINIRole HCL [Requip] 5 mg PO HS tablet 08/27/16 [Last Taken Unknown] Acetaminophen [Tylenol] 650 mg PO Q6H PRN 09/04/16 [Last Taken Unknown] Ammonium Lactate [Lac-Hydrin] 1 appl TP BID 09/04/16 [Last Taken Unknown] Fluticasone Propionate 50 mcg NS BID 09/04/16 [Last Taken Unknown] Clopidogrel Bisulfate [Plavix] 75 mg PO DAILY tablet 09/07/16 [Last Taken Unknown] [place]-Probenecid 1 tab PO BID PRN 11/14/16 [Last Taken Unknown] Docusate Sodium [Stool Softener] 100 mg PO DAILY 11/14/16 [Last Taken Unknown] Finasteride [Proscar] 5 mg PO DAILY 11/14/16 [Last Taken Unknown] Rifampin [Rifadin] 300 mg PO BID 11/14/16 [Last Taken Unknown] Sennosides/Docusate Sodium [Senna-S Tablet] 1 each PO HS 11/14/16 [Last Taken Unknown] Sulfamethoxazole/Trimethoprim [Bactrim Ds] 1 tab PO BID 11/14/16 [Last Taken Unknown] Warfarin Sodium [Coumadin] 7 mg PO DAILY@1700 11/14/16 [Last Taken Unknown] Warfarin Sodium [Coumadin] 9 mg PO DAILY 11/14/16 [Last Taken Unknown] Date (Duration): 11/14/16 Time (Timing): 12:30 Timing: getting worse Severity/Quality: severe Location: substernal Chest Pain Radiation: no radiation Activities at Onset: rest Modifying Factors - Worsens: Present: rest Nitro Today/Relief: no nitro taken today Aspirin Treatment Today: no aspirin today, provided by ED Associated Symptoms: Present: shortness of breath, weakness Prior Chest Pain/Cardiac Workup: Reports: prior chest pain, other - known coronary artery disease. Review of Systems - Narrative Narrative: Patient is a 81-year-old male with a rather complicated past medical history he recently was admitted to the hospital for severe cellulitis developed urosepsis see me leading to a complication of a stroke on August 2016. Residual left weakness and went to inpatient rehabilitation at [facility]. At [place] patient's past history is quite complicated and reveals atrial fibrillation congestive heart failure coronary artery disease status post CABG in 2014 status post pacemaker and obstructive sleep apnea requires CPAP and BiPAP without oxygenation. And previous CVA most recently in August. He currently remains on Bactrim and rifampin for his recent septicemia. - Review of Systems Constitutional: Present: See HPI EYE: Present: see HPI ENT: Present: See HPI Respiratory: Present: shortness of breath Cardiology: Present: See HPI, chest pain Genitourinary: Present: See HPI Neurological: Present: other - recent CVA. Proximally August 2016 minimal residual weakness persisting. Endocrine: Present: no symptoms reported Hematologic/Lymphatic: Present: easy bruising Psych: Present: no symptoms reported All Other Systems: All systems neg except as marked - Narrative Narrative: past medical history past surgical history, medication history allergies were reviewed. - Patient's Past Medical History Patient History - Medical: Diabetes Type 2 Patient History - Cardiac/Respiratory: Atrial Fibrillation, Coronary Heart Disease, CHF, Hypertension, CPAP/BiPAP Home Use, Sleep Apnea Patient History - Cancer: Colon, Chemotherapy history Patient History - Surgical Procedures: Cataracts, Colon Resection, Coronary Bypass Surgery, Pacemaker, Other Patient History - Other: None - Family History Father Family History - Medical: Family History - Cardiac/Respiratory: Hypertension Brother Family History - Medical: , Diabetes Type 1 Family History - Cardiac/Respiratory: Other - Social History Living Situations: home Abuse History: No History of abuse Psych History: No pertinent hx Does anyone smoke in the home?: No Smoking Status: Former smoker Have you smoked in the past 12 months: No Do you dip or chew tobacco: No Alcohol Use: rarely Drug Use: none - Immunizations Immunizations Up to Date: Yes Hx Pneumococcal Vaccination: Yes History of Influenza Vaccine: Yes Physical Exam - Physical Exam General Appearance: Present: moderate distress - patient rates his pain a 7 out of 10. Head Exam: Present: normal inspection, no evidence of injury Eye Exam: Normal inspection: bilateral, PERRL: bilateral, EOMI: bilateral Ears, Nose, Throat: Present: normal ENT inspection Neck: Present: normal inspection, nontender Respiratory: Present: decreased breath sounds, expiration (prolonged), rales - bilateral bases Cardiovascular/Chest: Present: regular rate, rhythm, no murmur, normal peripheral pulses Peripheral Pulses: N=norm/S=strong/W=weak/B=bound/A=absent: Carotid (R): Normal , Carotid (L): Normal Gastrointestinal/Abdominal: Present: normal bowel sounds, nontender, nondistended, soft, no organomegaly Rectal Exam: Present: deferred Male Genitals Exam: Present: deferred Back Exam: Present: normal range of motion. Absent: CVA tenderness (R), CVA tenderness (L) Extremity Exam: Present: normal inspection, pedal edema, other - mild pedal edema. Neurological Exam: Present: alert, oriented, normal mood/affect, other - mild left-sided weakness residual from previous CVA August 2016. Improving with rehabilitation completed inpatient rehabilitation at [place] DTR: N=norm/NB=norm/brisk/A=abs/DD=dull/dimin/HC=hyperactive: Bicep (R): Normal , Bicep (L): Normal, Knee (R): Normal, Knee (L): Normal Skin Exam: Present: normal color, warm/dry ED Progress - Results and Orders Patient's Lab Results:: I have reviewed the patient's lab results. Results and Orders: Laboratory Tests 11/14/16 11/14/16 11/14/16 13:50 13:50 13:50 WBC 6.3 RBC 3.70 L Hgb 10.5 L Hct 32.5 L MCV 87.8 MCH 28.4 MCHC 32.3 RDW 13.8 Plt Count 117 L MPV 10.4 H Immature Gran % (Auto) 0.30 Immature Gran # (Auto) 0.02 Neutrophils % 65.0 Lymphocytes % 13.8 L Monocytes % 16.2 H Eosinophils % 4.2 H Basophils % 0.5 Nucleated RBC % 0.0 Neutrophils # 4.1 Lymphocytes # 0.9 L Monocytes # 1.0 Eosinophils # 0.3 Absolute Basophils 0.0 PT 15.8 H INR (Anticoag Therapy) 1.52 H PTT ([place]) 41.8 H Sodium 135 Plasma Sodium 138 Potassium 4.8 H Chloride 100 Carbon Dioxide 26.7 Anion Gap 13.1 BUN 20 Creatinine 0.98 Est GFR (Non-Af Amer) 78 D BUN/Creatinine Ratio 20.4 Random Glucose 270 H Calcium 8.1 Calcium Adj for Albumin 8.6 Total Bilirubin 0.5 AST 21 ALT 31 Alkaline Phosphatase 82 Troponin I 0.024 B-Natriuretic Peptide 977 H Total Protein 6.6 Albumin 3.0 L - Vital Signs Patient's Vital Signs:: I have reviewed the patient's vital signs. Vital Signs: Vital Signs 11/14/16 11/14/16 11/14/16 13:35 14:31 15:07 Temperature 37 C Pulse Rate 72 73 70 Respiratory 23 H 23 H Rate Blood Pressure 157/57 139/55 O2 Sat by Pulse 87 L 96 Oximetry - EKG EKG read: Interp. by me EKG Comments: EKG 1336 reviewed electronic ventricular pacer at a rate of 73 previous EKG reviewed similar change from 09/04/2016. - X-Ray X-Ray #1 X-Ray: chest Interpretation: Reviewed by me X-ray Comments: [facility] PATIENT RADIOLOGY STUDY REPORT Patient Patient Name:APRYL HALEY Date: 1935 Sex: M Order Number: [id number] Unique Exam ID: [id number] Exam Requested: CXRPALAT - Chest PA Lateral * Date Scheduled: 11-14-2016 02:18 PM Study Priority: Requesting Service: Requesting Physician: Myriam Jenkins Reason for Exam: chest pain Radiological Report : [facility] [address] - [place] [address] NAME: APRYL HALEY : 1935 MR #: [id number] CC: Myriam Jenkins DO LOC: ER ADM DATE: X-RAY REPORT [id number] RAD/Chest PA Lateral * Exam Date: 11/14/2016 14:18 Ordering Physician: Myriam Gregory HISTORY: chest pain Additional history from technologist: Chest pain and headache. History of stroke 6 weeks ago. TECHNIQUE: PA and lateral views of the chest were obtained. 4 images. COMPARISONS: Multiple prior studies, the most recent study from 09/04/2016 FINDINGS: Chest PA Lateral * Patient has a dual-chamber pacemaker, with grossly intact appearance of the leads. Stable appearance of the lead position since last examination. Generator overlying the left upper chest. Hyperinflated lung volumes. No consolidation or mass. Increased pulmonary vascular markings with cephalization of the venous markings noted. No pneumothorax or pleural fluid collections. Mild to moderate cardiomegaly, stable. Vascular calcifications overlying the aorta suggestive of atherosclerosis, stable. Trachea is in normal position. Bones show degenerative changes of the spine. Median sternotomy wires are present. IMPRESSION: 1. Pulmonary venous congestion suggested. 2. Pacemaker present. 3. No focal acute finding. 4. Hyperinflated lungs. Correlate clinically for acute or chronic bronchitis or reactive airways disease. Also consider COPD. Electronically signed by Naresh Bui M.D.. Naresh Bui MD Dict: 11/14/16 1455 Typed: 11/14/16 1455/ 11/14/16 1459 11/14/16 1502 Approved by: NARESH BUI Approval Date: 11-14-2016 Approval Time: 02:55 PM THIS REPORT WAS RECEIVED FROM THE [employer] SYSTEM - Progress/Reassessment Chief Complaint: Chest Pain Progress:: Improved - patient was chest pain-free at the time if admission L pending repeat cardiac enzymes potassium screening and monitoring for any concerns of infection. Plan - Plan Plan: Case was discussed with the Mariluz mcdonald for admission we discussed the need for him to be monitored regarding his chest pain as CHF exacerbation and COPD exacerbation. Patient had as high risk as he recently was hospitalized and will not add any IV antibiotics at this time since most of his pain was alleviated with nitroglycerin and of diuresis with IV Lasix. But he should be monitored for worsening exacerbation of COPD requiring further screening for worsening infection. His urinalysis demonstrated no evidence of infection at this time. Patient will need a recheck of his potassium as his initial screening was elevated and given the recent dose of Lasix B repeated with a second troponin I do sometime around 9 PM. Departure - Departure Clinical Impression: CHF (congestive heart failure) Qualifiers: Congestive heart failure type: diastolic Congestive heart failure chronicity: acute on chronic Qualified Code(s): I50.33 - Acute on chronic diastolic ( congestive) heart failure Chest pain Qualifiers: Chest pain type: precordial pain Qualified Code(s): R07.2 - Precordial pain COPD (chronic obstructive pulmonary disease) Qualifiers: COPD type: COPD with acute exacerbation Qualified Code(s): J44.1 - Chronic obstructive pulmonary disease with (acute) exacerbation Disposition: [facility] Condition: Stable
[2016-11-14] MEDS ORDERED: FUROSEMIDE 10 MG/ML VIAL ONE (15:29)
[2016-11-14] MEDS ORDERED: FUROSEMIDE 10 MG/ML VIAL IV SCH ×2 (15:30→20:22)
[2016-11-14] MEDS ORDERED: METHYLPREDNISOLONE SOD SUCC/PF 40 MG/ML VIAL ONE (15:30)
[2016-11-14] MEDS: FUROSEMIDE 10 MG/ML VIAL IV SCH (15:39)
[2016-11-14] MEDS ORDERED: WARFARIN SODIUM 1 MG TABLET PO SCH (17:45)
[2016-11-14] MEDS ORDERED: WARFARIN SODIUM 5 MG TABLET PO SCH (17:45)
[2016-11-14 19:54] LABS: Anion Gap 12.3 mmol/L (6.8-13.8); BUN/Creatinine Ratio 20.2 (9.0-21.6); Calcium * 8.1 mg/dL (7.9-10.9); Carbon Dioxide 27.4 mmol/L (24-32.6); Estimated Creat Clear 69.5; Potassium 4.7 mmol/L (3.4-4.6)
[2016-11-14 19:55] LABS: Troponin I 0.033 ng/ml (0.00-0.10)
[2016-11-14] MEDS ORDERED: METOLAZONE 5 MG TABLET PO SCH (20:22)
--- NOTE | 2016-11-14 21:03 | HP ---
Chief Complaint - Chief Complaint Date of Service: 11/14/16 Time of Service: 20:20 Chief Complaint: " SOB, Coughing, Weakness". Source of HPI- Pt; reliable, ER provider report. History of Present Illness: Mr. Gallardo is a 81-yr-old [facility] pt of Dr. Kenny Ching with a PMH of: Asthma, A-fib, BPH, Colon ca, COPD, CVA, CHF, DM II, GERD, HTN, HLD, LVH & BENJAMIN. Pt states that he begun having worsening SOB yesterday. He got dyspneic with a short ambulation distance from his bedroom to the bathroom. Today, he developed pressure like pain on his chest and this forced him to come to the [facility] ED. He denied the associated symptoms of nausea, vomiting, and Diaphoresis , or chest pain/pressure radiation to neck, jaw or arm. He reports he has had productive cough, and is able to expectorate thick yellow phlegm. At the ED, he was given Lasix 40mg IV & 3 Nitroglycerine tabs and the chest pressure went away and currently he denies any chest discomfort. The CXR obtained at the ED showed increased Pulmonary Vascular Congestion. He also had desaturations to 87 % on RA, laboured breathing and required oxygen supplementation to keep POX > 90. Lab-work was mostly unremarkable except for an elevated BNP of 977. The first troponin and EKG were negative for ACS/IA. He will need to be admitted inpatient due CHF exacerbation which can easily progress to pulmonary edema and respiratory failure and IV diuretics may prevent such complications. He is also at further risk of respiratory compromise due to SPO2 of 87% on RA and given commodities and advance age, his clinical course needs to be closely monitored in an inpatient setting. - Patient's Past Medical History Patient History - Medical: Diabetes Type 2 Patient History - Cardiac/Respiratory: Atrial Fibrillation, Asthma, Coronary Heart Disease, CHF, CVA/Stroke, Hypertension, Hyperlipidemia, CPAP/BiPAP Home Use, Sleep Apnea Patient History - Cancer: Colon, Chemotherapy history Patient History - Surgical Procedures: Cataracts, Colon Resection, Coronary Bypass Surgery, Pacemaker, Other Patient History - Other: None - Family History Father Family History - Medical: Family History - Cardiac/Respiratory: Hypertension Brother Family History - Medical: , Diabetes Type 1 Family History - Cardiac/Respiratory: Other - Social History Living Situations: home Abuse History: No History of abuse Psych History: No pertinent hx Does anyone smoke in the home?: No Smoking Status: Former smoker Have you smoked in the past 12 months: No Do you dip or chew tobacco: No Alcohol Use: rarely Drug Use: none - Immunizations Immunizations Up to Date: Yes Hx Pneumococcal Vaccination: Yes History of Influenza Vaccine: Yes Review Of Systems (GEN) - Review of Systems Generalized/Overall Review: Present: Weakness. Absent: Chills, Fever, Malaise, Diaphoresis EENTM: Absent: Eye Pain, Blurred Vision, Double Vision Respiratory: Present: Cough, Shortness of Breath. Absent: Orthopnea, Stridor Cardiac: Absent: Chest Pain, Edema, Palpitations, Syncope Abdominal: Absent: Nausea, Vomiting, Hematemesis, Abdominal Pain, Constipation Genitourinary: Absent: Burning, Itching, Urgency Musculoskeletal: Absent: Joint Pain, Back Pain, Joint Swelling Neurological: Present: Weakness. Absent: Headache, Anxiety, Depressed Skin: Present: Dryness. Absent: Lesions Endocrine: Present: Increased Hunger. Absent: Intolerance to Cold, Increased Thirst Misc: All systems neg except as marked Allergies/Adverse Reactions: Allergies Allergy/AdvReac Type Severity Reaction Status Date / Time ketoprofen [From Oruvail] AdvReac Verified 11/14/16 13:41 metoprolol AdvReac Verified 11/14/16 13:41 rofecoxib [From Vioxx] AdvReac Verified 11/14/16 13:41 Home Medications: HOME MEDICATIONS Albuterol Sulfate [Albuterol Sulfate 0.63 MG/3ML] 2.5 mg IH Q4H PRN 06/12/12 [ Last Taken 06/12/12] Enalapril Maleate 10 mg PO HS 06/12/12 [Last Taken 06/12/12] Simvastatin [Zocor] 40 mg PO HS 06/12/12 [Last Taken 06/12/12] clonazePAM [Klonopin] 1 mg PO HS 06/12/12 [Last Taken 06/12/12] Furosemide [Lasix] 40 mg PO DAILY #30 tablet 06/15/12 [Last Taken Unknown] Potassium Chloride [K-Dur] 20 meq PO DAILY #30 tablet 06/15/12 [Last Taken Unknown] Lansoprazole [Prevacid] 30 mg PO BID 06/07/14 [Last Taken Unknown] glipiZIDE [Glucotrol] 10 mg PO BIDAC 06/07/14 [Last Taken Unknown] Multivitamin [One Daily Essential] 1 each PO DAILY 02/14/16 [Last Taken Unknown] Budesonide/Formoterol Fumarate [Symbicort 160-4.5 Mcg Inhaler] 2 puff IH BID [Last Taken Unknown] Clotrimazole [Lotrimin Cream] 15 gm TP BID 07/08/16 [Last Taken Unknown] Ferrous Sulfate [Iron] 325 mg PO DAILY 07/08/16 [Last Taken Unknown] Nitroglycerin [Nitrostat] 0.4 mg SL Q5MIN PRN 07/08/16 [Last Taken Unknown] Zolpidem Tartrate [Ambien] 5 mg PO HS 07/08/16 [Last Taken Unknown] Calcium Carbonate [Calcium] 1,250 mg PO QID 08/24/16 [Last Taken Unknown] Isosorbide Mononitrate [Isosorbide Mononitrate ER] 15 mg PO DAILY 08/24/16 [ Last Taken Unknown] Tamsulosin HCl 0.8 mg PO DAILY 08/24/16 [Last Taken Unknown] Triamcinolone Acetonide [Kenalog 0.025%] 1 appl TP BID PRN 08/24/16 [Last Taken Unknown] rOPINIRole HCL [Requip] 5 mg PO HS tablet 08/27/16 [Last Taken Unknown] Acetaminophen [Tylenol] 650 mg PO Q6H PRN 09/04/16 [Last Taken Unknown] Ammonium Lactate [Lac-Hydrin] 1 appl TP BID 09/04/16 [Last Taken Unknown] Fluticasone Propionate 50 mcg NS BID 09/04/16 [Last Taken Unknown] Clopidogrel Bisulfate [Plavix] 75 mg PO DAILY tablet 09/07/16 [Last Taken Unknown] [place]-Probenecid 1 tab PO BID PRN 11/14/16 [Last Taken Unknown] Docusate Sodium [Stool Softener] 100 mg PO DAILY 11/14/16 [Last Taken Unknown] Finasteride [Proscar] 5 mg PO DAILY 11/14/16 [Last Taken Unknown] Rifampin [Rifadin] 300 mg PO BID 11/14/16 [Last Taken Unknown] Sennosides/Docusate Sodium [Senna-S Tablet] 1 each PO HS 11/14/16 [Last Taken Unknown] Sulfamethoxazole/Trimethoprim [Bactrim Ds] 1 tab PO BID 11/14/16 [Last Taken Unknown] Warfarin Sodium [Coumadin] 7 mg PO DAILY@1700 11/14/16 [Last Taken Unknown] Warfarin Sodium [Coumadin] 9 mg PO DAILY 11/14/16 [Last Taken Unknown] Exam - Exam Vital Signs: Vital Signs - Last Taken Temp 36.0 C L 11/14/16 19:20 Pulse 71 11/14/16 19:20 Resp 20 11/14/16 19:20 BP 148/58 11/14/16 19:20 Pulse Ox 93 11/14/16 19:20 Constitutional: Present: Alert, Oriented x3, Cooperative, No distress, Elderly ENT Exam: Present: normal ENT inspection. Absent: nasal drainage, pharyngeal erythema Eye Exam: bilateral eye: normal inspection, PERRL Neck: Present: non-tender, full range of motion, supple Back Exam: Present: normal inspection Respiratory: Present: rales - RLL Cardiovascular/Chest: Present: regular rate, rhythm, no chest tenderness, no edema Abdomen: Present: Normal bowel sounds, soft, nontender /Rectal: Present: Exam deferred Extremity: Present: normal inspection, no pedal edema Skin Exam: Present: warm/dry, no cyanosis Lymphatic: Present: no adenopathy Neurologic: Present: no motor/sensory deficits, alert, oriented x 3 Appearance: Present: appropriate appearance, appropriate insight Eye contact: Present: cooperative, good eye contact, normal speech Thoughts: Present: normal thought pattern, no apparent hallucination Diagnostic Studies: Abnormal Lab Results 11/14/16 Range/Units 19:35 Potassium 4.7 H (3.4-4.6) mmol/L Random Glucose 274 H (70-110) mg/dL Laboratory Results WBC 6.3 K/mm3 (4.0-10.5) 11/14/16 13:50 RBC 3.70 M/mm3 (4.7-6.0) L 11/14/16 13:50 Hgb 10.5 gm/dL (13.5-18.0) L 11/14/16 13:50 Hct 32.5 % (42.0-52.0) L 11/14/16 13:50 MCV 87.8 fl (78-100) 11/14/16 13:50 MCH 28.4 pg (27-31) 11/14/16 13:50 MCHC 32.3 g/dl (32-36) 11/14/16 13:50 RDW 13.8 % (11.5-14.0) 11/14/16 13:50 Plt Count 117 K/mm3 (150-450) L 11/14/16 13:50 MPV 10.4 fl (6.0-9.5) H 11/14/16 13:50 Immature Gran % (Auto) 0.30 % (0.001-0.429) 11/14/16 13:50 Immature Gran # (Auto) 0.02 K/mm3 (0.000-0.0310) 11/14/16 13:50 Neutrophils % 65.0 % (42-75.0) 11/14/16 13:50 Lymphocytes % 13.8 % (20-51) L 11/14/16 13:50 Monocytes % 16.2 % (0.0-9) H 11/14/16 13:50 Eosinophils % 4.2 % (0.0-3.0) H 11/14/16 13:50 Basophils % 0.5 % (0.0-1.0) 11/14/16 13:50 Nucleated RBC % 0.0 k/mm3 (0-1) 11/14/16 13:50 Neutrophils # 4.1 K/mm3 (1.3-6.0) 11/14/16 13:50 Lymphocytes # 0.9 k/mm3 (1.5-3.5) L 11/14/16 13:50 Monocytes # 1.0 k/mm3 (0.0-1.0) 11/14/16 13:50 Eosinophils # 0.3 k/mm3 (0.0-0.7) 11/14/16 13:50 Absolute Basophils 0.0 k/mm3 (0.0-0.1) 11/14/16 13:50 PT 15.8 Seconds (9.4-11.4) H 11/14/16 13:50 INR (Anticoag Therapy) 1.52 INR (0.90-1.10) H 11/14/16 13:50 PTT ([place]) 41.8 Seconds (24-32) H 11/14/16 13:50 Sodium 135 mmol/L (132-142) 11/14/16 19:35 Plasma Sodium 138 mmol/L (130-142) 11/14/16 19:35 Potassium 4.7 mmol/L (3.4-4.6) H 11/14/16 19:35 Chloride 100 mmol/L (97-106) 11/14/16 19:35 Carbon Dioxide 27.4 mmol/L (24-32.6) 11/14/16 19:35 Anion Gap 12.3 mmol/L (6.8-13.8) 11/14/16 19:35 BUN 18 mg/dL (6-23) 11/14/16 19:35 Creatinine 0.89 mg/dL (0.4-1.4) 11/14/16 19:35 Est GFR (Non-Af Amer) 88 mL/min (60-130) 11/14/16 19:35 BUN/Creatinine Ratio 20.2 (9.0-21.6) 11/14/16 19:35 Random Glucose 274 mg/dL (70-110) H 11/14/16 19:35 Calcium 8.1 mg/dL (7.9-10.9) 11/14/16 19:35 Calcium Adj for Albumin 8.6 mg/dL (8.4-10.2) 11/14/16 13:50 Total Bilirubin 0.5 mg/dL (0.0-1.1) 11/14/16 13:50 AST 21 U/L (0-48) 11/14/16 13:50 ALT 31 U/L (19-67) 11/14/16 13:50 Alkaline Phosphatase 82 U/L (50-170) 11/14/16 13:50 Troponin I 0.033 ng/ml (0.00-0.10) 11/14/16 19:35 B-Natriuretic Peptide 977 pg/mL (5-650) H 11/14/16 13:50 Total Protein 6.6 gm/dL (6.2-8.2) 11/14/16 13:50 Albumin 3.0 gm/dl (3.4-5.0) L 11/14/16 13:50 Assessment/Plan - Assessment/Plan (1) CHF exacerbation Assessment: Mr. Gallardo presented with C/C of exertional dyspnea. LS reveal Rales on RLL, no peripheral Edema.The CXR showed increased pulmonary vascular congestion. He reports medication adherence to his diuretics ( Lasix 40 mg daily). The last Echocardiodram on 09/05/16 showed he had normal ejection fraction. He received Lasix IV 40 mg and will give an additional 80mg to try to relieve the symptoms of . Monitor closely so as not to over diurese. Will determine daily doses based on fluid volume status. Monitor daily weights, I/Os & Wean off oxygen. Check BMP in am. Problem: Acute (2) Chest pain, rule out acute myocardial infarction Assessment: Serial troponins and Repeat EKG do not show any evidence of ACS/IA. Problem: Acute (3) Afib Assessment: Stable- Place on telemtery monitoring. On Coumadin. Problem: Chronic Qualifiers: Atrial fibrillation type: chronic Qualified Code(s): I48.2 - Chronic atrial fibrillation (4) Diabetes Assessment: Stable- consistent carb diet, Accucheks ACHS, Continue glipizide Problem: Chronic Qualifiers: Diabetes mellitus type: type 2 (5) BPH (benign prostatic hyperplasia) Assessment: Stable- On Proscar & Flomax. Problem: Chronic Qualifiers: Lower urinary tract symptom presence: symptoms absent Qualified Code(s): N40.0 - Benign prostatic hyperplasia without lower urinary tract symptoms (6) HTN (hypertension) Assessment: Stable- on Vasotec. Problem: Chronic Qualifiers: Hypertension type: essential hypertension Qualified Code(s): I10 - Essential (primary) hypertension (7) BENJAMIN (obstructive sleep apnea) Assessment: Stable- Continue CPAP at HS. Problem: Chronic (8) GERD (gastroesophageal reflux disease) Assessment: Stable on Lansoprazole. Problem: Chronic (9) CVA (cerebral vascular accident) Assessment: Stable- On Plavix and Zocor Problem: Chronic
[2016-11-14] MEDS ORDERED: ACETAMINOPHEN 325 MG TABLET PO PRN (22:02)
[2016-11-14] MEDS ORDERED: [UNRECOGNIZED DRUG - OTHER] PO PRN (22:02)
[2016-11-14] MEDS ORDERED: NITROGLYCERIN 0.4 MG/TAB BTL SL PRN (22:02)
[2016-11-14] MEDS ORDERED: TRIAMCINOLONE ACETONIDE 15 APPL TUBE TP PRN (22:02)
[2016-11-14] MEDS ORDERED: glipiZIDE 5 MG TABLET PO SCH (22:15)
[2016-11-14] MEDS ORDERED: ALBUTEROL SULFATE 2.5 MG/0.5 ML VIAL.NEB IH PRN (22:30)
[2016-11-14] MEDS: ENALAPRIL MALEATE 5 MG TABLET PO SCH (22:45)
[2016-11-14] MEDS: SIMVASTATIN 40 MG TABLET PO SCH (22:45)
[2016-11-14] MEDS: clonazePAM 1 MG TABLET PO SCH (22:45)
[2016-11-14] MEDS: FLUTICASONE PROPIONATE 120 SPRAY INHALER NS SCH (22:45)
[2016-11-14] MEDS: CALCIUM CARBONATE 500 MG TAB.CHEW PO SCH (22:45)
[2016-11-14] MEDS: SENNOSIDES/DOCUSATE SODIUM 1 TAB TABLET PO SCH (22:46)
[2016-11-14] MEDS: CLOTRIMAZOLE 15 APPL TUBE TP SCH (22:46)
[2016-11-14] MEDS: FLUTICASONE/SALMETEROL 14 PUFF DISK.W.DEV IH SCH (22:49)
[2016-11-14] MEDS ORDERED: WARFARIN SODIUM 2 MG TABLET PO SCH (23:00)
[2016-11-15 05:58] LABS: Hematocrit 33.4 % (42.0-52.0); Hemoglobin 10.9 gm/dL (13.5-18.0); Mean Cell Volume 86.5 fl (78-100); Mean Corpuscular Hemoglobin 28.2 pg (27-31); Mean Corpuscular Hgb Conc 32.6 g/dl (32-36); Mean Platelet Volume 10.4 fl (6.0-9.5); Neutrophil # 3.5 K/mm3 (1.3-6.0); Neutrophil % 66.4 % (42-75.0); Platelet Count 130 K/mm3 (150-450); Red Blood Count 3.86 M/mm3 (4.7-6.0); Red Cell Distribution Width 13.4 % (11.5-14.0); White Blood Count 5.2 K/mm3 (4.0-10.5)
[2016-11-15 06:10] LABS: BUN/Creatinine Ratio 22.8 (9.0-21.6); Calcium * 8.9 mg/dL (7.9-10.9); Carbon Dioxide 32.2 mmol/L (24-32.6); Estimated Creat Clear 78.3; Potassium 3.2 mmol/L (3.4-4.6)
[2016-11-15] MEDS ORDERED: COLCHICINE 0.6 MG TABLET PO PRN (06:19)
[2016-11-15] MEDS ORDERED: PROBENECID 500 MG TABLET PO PRN (06:20)
[2016-11-15] MEDS ORDERED: LANSOPRAZOLE 30 MG PO SCH (07:00)
[2016-11-15] MEDS: PANTOPRAZOLE SODIUM 40 MG TABLET.EC PO SCH ×2 (07:29→16:58)
[2016-11-15] MEDS: glipiZIDE 10 MG TABLET PO SCH ×2 (07:29→16:59)
[2016-11-15] MEDS: ISOSORBIDE MONONITRATE 30 MG TAB.SR.24H PO SCH (09:19)
[2016-11-15] MEDS: DOCUSATE SODIUM 100 MG CAPSULE PO SCH (09:19)
[2016-11-15] MEDS: RIFAMPIN 300 MG CAPSULE PO SCH ×2 (09:21→20:39)
[2016-11-15] MEDS: FERROUS SULFATE 325 MG TABLET PO SCH (09:21)
[2016-11-15] MEDS: AMMONIUM LACTATE 225 APPL BTL TP SCH ×2 (09:21→20:38)
[2016-11-15] MEDS: TAMSULOSIN HCL 0.4 MG CAP.SR.24H PO SCH (09:21)
[2016-11-15] MEDS: CALCIUM CARBONATE 500 MG TAB.CHEW PO SCH ×4 (09:21→20:37)
[2016-11-15] MEDS: MULTIVITAMINS 1 CAP CAPSULE PO SCH (09:21)
[2016-11-15] MEDS: FINASTERIDE 5 MG TABLET PO SCH (09:22)
[2016-11-15] MEDS: CLOPIDOGREL BISULFATE 75 MG TABLET PO SCH (09:22)
[2016-11-15] MEDS: CLOTRIMAZOLE 15 APPL TUBE TP SCH ×2 (09:25→20:38)
[2016-11-15] MEDS: FLUTICASONE PROPIONATE 120 SPRAY INHALER NS SCH ×2 (09:25→20:40)
[2016-11-15] MEDS: FLUTICASONE/SALMETEROL 14 PUFF DISK.W.DEV IH SCH ×2 (09:26→20:36)
[2016-11-15] MEDS: FUROSEMIDE 10 MG/ML VIAL IV SCH (09:32)
[2016-11-15] MEDS ORDERED: FUROSEMIDE 10 MG/ML VIAL IV ONE ×3 (11:02→16:00)
--- NOTE | 2016-11-15 11:03 | PN ---
<Anny Shahid - Last Filed: 11/15/16 15:14> Subjective - Date and Time Seen Date: 11/15/16 Time: 11:03 Subjective Narrative: shortness of breath is better. no chest pain. Objective - Review of Systems Generalized/Overall Review: Reports: No Symptoms Reported EENTM: Reports: No Symptoms Reported Respiratory: Reports: Shortness of Breath Cardiac: Reports: Edema. Denies: Chest Pain Abdominal: Reports: No Symptoms Reported Genitourinary Symptoms: Reports: No Symptoms Reported Musculoskeletal Complaints: Reports: No Symptoms Reported Neurological: Reports: No Symptoms Reported Skin: Reports: No Symptoms Reported Endocrine: Reports: No Symptoms Reported Misc: All systems neg except as marked - Vitals Vitals: Last Vital Signs Temp 36.4 C L 11/15/16 10:55 Pulse 71 11/15/16 10:55 Resp 19 11/15/16 10:55 BP 130/51 11/15/16 10:55 Pulse Ox 92 11/15/16 10:55 - Abnormal Lab Findings Abnormal Lab Findings: Abnormal Lab Results 11/14/16 11/15/16 11/15/16 Range/Units 19:35 05:30 05:30 RBC 3.86 L (4.7-6.0) M/mm3 Hgb 10.9 L (13.5-18.0) gm/dL Hct 33.4 L (42.0-52.0) % Plt Count 130 L (150-450) K/mm3 MPV 10.4 H (6.0-9.5) fl Immature Gran % (Auto) 0.60 H (0.001-0.429) % Lymphocytes % 12.5 L (20-51) % Monocytes % 13.6 H (0.0-9) % Eosinophils % 6.3 H (0.0-3.0) % Lymphocytes # 0.7 L (1.5-3.5) k/mm3 Potassium 4.7 H 3.2 L D (3.4-4.6) mmol/L BUN/Creatinine Ratio 22.8 H (9.0-21.6) Random Glucose 274 H (70-110) mg/dL - Exam Constitutional: Present: Alert, Cooperative, No distress ENT Exam: Present: hearing grossly normal Neck: Present: full range of motion, supple Breasts: Present: Exam deferred Respiratory: Present: chest non-tender, no respiratory distress, crackles - bilat bases Cardiovascular/Chest: Present: normal peripheral pulses, no chest tenderness, irregularly irregular. Absent: tachycardia Abdomen: Present: soft, nontender, nondistended /Rectal: Present: Exam deferred Extremity: Present: non-tender, lower extremity edema - +1 lower extremity edema bilat Skin Exam: Present: warm/dry, no cyanosis, pallor Assessment/Plan Plan Narrative: still needing oxygen supplement via nasal cannula to maintain sats above 90%. also with lower extremity edema. will give lasix 80 mg iv x2 today. replace potassium. recheck labs in am. will need another 1-2 days of hospitalization to diurese patient. - Problems/Diagnosis (1) CHF exacerbation Problem: Acute (2) Chest pain Problem: Acute QualifierTitle: Chest pain type: precordial pain Qualified Code(s): R07.2 - Precordial pain (3) CHF (congestive heart failure) Problem: Chronic QualifierTitle: Congestive heart failure type: diastolic Congestive heart failure chronicity: acute on chronic Qualified Code(s): I50.33 - Acute on chronic diastolic (congestive) heart failure (4) COPD (chronic obstructive pulmonary disease) Problem: Chronic QualifierTitle: COPD type: COPD with acute exacerbation Qualified Code(s) : J44.1 - Chronic obstructive pulmonary disease with (acute) exacerbation (5) CVA (cerebral vascular accident) Problem: Chronic (6) GERD (gastroesophageal reflux disease) Problem: Chronic (7) CVA (cerebral vascular accident) Problem: Acute QualifierTitle: CVA mechanism: embolism Laterality of affected vessel: right Qualified Code(s): I63.9 - Cerebral infarction, unspecified (8) Coronary artery disease Problem: Acute QualifierTitle: Coronary Disease-Associated Artery/Lesion type: bypass graft [place] vs. transplanted heart: [place] heart Associated angina: without angina Qualified Code(s): I25.810 - Atherosclerosis of coronary artery bypass graft(s) without angina pectoris (9) Afib Problem: Chronic QualifierTitle: Atrial fibrillation type: chronic Qualified Code(s): I48.2 - Chronic atrial fibrillation (10) BPH (benign prostatic hyperplasia) Problem: Chronic QualifierTitle: Lower urinary tract symptom presence: symptoms absent Qualified Code(s): N40.0 - Benign prostatic hyperplasia without lower urinary tract symptoms (11) Diabetes Problem: Chronic QualifierTitle: Diabetes mellitus type: type 2 (12) Diastolic dysfunction Problem: Chronic (13) HTN (hypertension) Problem: Chronic QualifierTitle: Hypertension type: essential hypertension Qualified Code( s): I10 - Essential (primary) hypertension (14) BENJAMIN (obstructive sleep apnea) Problem: Chronic (15) Pulmonary hypertension Problem: Chronic (16) Hypokalemia Problem: Acute <Kenny Uribe - Last Filed: 11/15/16 19:33> Subjective Subjective Narrative: Still doing well by evening. Need to stablize fluid balance. Vitals and labs reviewed. Last echo was in August. Diastolic dysfunction and mild pulmonary hypertension. Will recheck labs in the AM. Slightly low potassium. I personally directed all our nurse practitioner hospitalist care for this for this patient. Objective - Vitals Vitals: Last Vital Signs Temp 36.5 C 11/15/16 19:04 Pulse 77 11/15/16 19:04 Resp 20 11/15/16 19:04 BP 126/56 11/15/16 19:04 Pulse Ox 96 11/15/16 19:04 - Abnormal Lab Findings Abnormal Lab Findings: Abnormal Lab Results 11/15/16 Range/Units 16:25 PT 15.3 H (9.4-11.4) Seconds INR (Anticoag Therapy) 1.47 H (0.90-1.10) INR
[2016-11-15] MEDS: POTASSIUM CHLORIDE 20 MEQ TABLET.SA PO SCH ×2 (12:33→16:58)
[2016-11-15 16:43] LABS: Prothrombin Time (Patient) 15.3 Seconds (9.4-11.4)
[2016-11-15 16:54] LABS: INR 1.47 INR (0.90-1.10)
[2016-11-15] MEDS ORDERED: WARFARIN SODIUM 3 MG TABLET PO SCH (17:00)
[2016-11-15] MEDS: clonazePAM 1 MG TABLET PO SCH (20:36)
[2016-11-15] MEDS: SENNOSIDES/DOCUSATE SODIUM 1 TAB TABLET PO SCH (20:37)
[2016-11-15] MEDS: rOPINIRole HCL 1 MG TABLET PO SCH (20:37)
[2016-11-15] MEDS: ENALAPRIL MALEATE 5 MG TABLET PO SCH (20:39)
[2016-11-15] MEDS: SIMVASTATIN 40 MG TABLET PO SCH (20:40)
[2016-11-15] MEDS: ZOLPIDEM TARTRATE 5 MG TABLET PO SCH (20:43)
[2016-11-16] MEDS: POTASSIUM CHLORIDE 20 MEQ TABLET.SA PO SCH ×2 (00:25→09:30)
[2016-11-16] MEDS: ONDANSETRON HCL/PF 2 MG/ML VIAL IV PRN ×3 (01:45→20:04)
[2016-11-16 06:03] LABS: Hematocrit 33.3 % (42.0-52.0); Mean Cell Volume 85.4 fl (78-100); Mean Corpuscular Hemoglobin 28.2 pg (27-31); Mean Platelet Volume 10.7 fl (6.0-9.5); Neutrophil # 3.6 K/mm3 (1.3-6.0); Neutrophil % 60.9 % (42-75.0); Platelet Count 171 K/mm3 (150-450); Red Cell Distribution Width 13.3 % (11.5-14.0); White Blood Count 5.9 K/mm3 (4.0-10.5)
[2016-11-16 06:17] LABS: Anion Gap 11.8 mmol/L (6.8-13.8); BUN/Creatinine Ratio 28.9 (9.0-21.6); Calcium * 9.4 mg/dL (7.9-10.9); Carbon Dioxide 32.7 mmol/L (24-32.6); Estimated Creat Clear 74.5; Potassium 4.5 mmol/L (3.4-4.6)
--- NOTE | 2016-11-16 06:36 | PN ---
<Pattie Thomas - Last Filed: 11/16/16 06:55> Subjective - Date and Time Seen Date: 11/16/16 Time: 06:26 Subjective Narrative: Mr. Gallardo examined this am. He vomited 3 times during the night around 1.30am. Nursing reports that the vomitus was undigested food. Kept NPO. States that he feels bloated. Objective - Vitals Vitals: Last Vital Signs Temp 36.7 C 11/16/16 01:00 Pulse 77 11/16/16 03:15 Resp 20 11/16/16 03:15 BP 116/52 11/16/16 01:00 Pulse Ox 91 11/16/16 03:15 - Abnormal Lab Findings Abnormal Lab Findings: Abnormal Lab Results 11/15/16 11/16/16 11/16/16 Range/Units 16:25 05:25 05:25 RBC 3.90 L (4.7-6.0) M/mm3 Hgb 11.0 L (13.5-18.0) gm/dL Hct 33.3 L (42.0-52.0) % MPV 10.7 H (6.0-9.5) fl Immature Gran % (Auto) 0.50 H (0.001-0.429) % Lymphocytes % 15.0 L (20-51) % Monocytes % 15.0 H (0.0-9) % Eosinophils % 7.9 H (0.0-3.0) % Lymphocytes # 0.9 L (1.5-3.5) k/mm3 PT 15.3 H (9.4-11.4) Seconds INR (Anticoag Therapy) 1.47 H (0.90-1.10) INR Chloride 95 L (97-106) mmol/L Carbon Dioxide 32.7 H (24-32.6) mmol/L BUN 24 H (6-23) mg/dL BUN/Creatinine Ratio 28.9 H (9.0-21.6) Random Glucose 167 H D (70-110) mg/dL - Exam Constitutional: Present: Alert, Oriented x3, Cooperative, No distress ENT Exam: Present: normal ENT inspection Neck: Present: non-tender, full range of motion, supple Respiratory: Present: lungs clear, No rales Cardiovascular/Chest: Present: regular rate, rhythm, no chest tenderness, no edema Abdomen: Present: Normal bowel sounds, soft, nontender /Rectal: Present: Exam deferred Extremity: Present: normal range of motion, non-tender Skin Exam: Present: warm/dry, no cyanosis Lymphatic: Present: no adenopathy Neurologic: Present: no motor/sensory deficits, alert, normal mood/affect, oriented x 3 Appearance: Present: appropriate appearance, appropriate insight Eye contact: Present: cooperative, good eye contact, normal speech Thoughts: Present: normal thought pattern, no apparent hallucination Assessment/Plan - Problems/Diagnosis (1) Nausea and vomiting Problem: Acute Narrative: Pt vomited three times in the night and given antiemetic. Kept NPO. Reports feeling bloated. Abdomen is soft and he has active bowel sounds. Abdominal KUB results pending. (2) CHF exacerbation Problem: Acute Narrative: Mr. Gallardo presented with C/C of exertional dyspnea. LS reveal Rales on RLL, no peripheral Edema.The CXR showed increased pulmonary vascular congestion. He reports medication adherence to his diuretics ( Lasix 40 mg daily). The last Echocardiodram on 09/05/16 showed he had normal ejection fraction. He received Lasix IV 40 mg and will give an additional 80mg to try to relieve the symptoms of . Monitor closely so as not to over diurese. Will determine daily doses based on fluid volume status. Monitor daily weights, I/Os & Wean off oxygen. Check BMP in am. 11/15/16- Given Lasix 80 mg x 2, Diuresed 1 L. Still requiring oxygen to keep SPO2 > 90%. (3) Chest pain, rule out acute myocardial infarction Problem: Acute (4) Afib Problem: Chronic QualifierTitle: Atrial fibrillation type: chronic Qualified Code(s): I48.2 - Chronic atrial fibrillation Narrative: Stable- Place on remote telemetry monitoring. Continue Coumadin. (5) Diabetes Problem: Chronic QualifierTitle: Diabetes mellitus type: type 2 Narrative: Stable- (6) BPH (benign prostatic hyperplasia) Problem: Chronic QualifierTitle: Lower urinary tract symptom presence: symptoms absent Qualified Code(s): N40.0 - Benign prostatic hyperplasia without lower urinary tract symptoms (7) HTN (hypertension) Problem: Chronic QualifierTitle: Hypertension type: essential hypertension Qualified Code( s): I10 - Essential (primary) hypertension (8) BENJAMIN (obstructive sleep apnea) Problem: Chronic (9) GERD (gastroesophageal reflux disease) Problem: Chronic (10) CVA (cerebral vascular accident) Problem: Chronic <Kenny Uribe - Last Filed: 11/16/16 12:47> Subjective Subjective Narrative: He didn't feel well ever since he had spaghetti and meatballs last night. He immediately started belching after eating them. Now this morning, when I saw him, he feels completely fine. There is no abdominal pain or bloating now. He has no sob, chest discomfort or cough. He feels quite well. I directly supervised all of our nurse practitioner hospitalist care for this patient. I reviewed the labs this morning which are unremarkable and the abdominal KUB which is non acute. The plan will be to continue as is and followup labs tomorrow. Probably home tomorrow. Objective - Vitals Vitals: Last Vital Signs Temp 36.7 C 11/16/16 10:50 Pulse 79 11/16/16 10:50 Resp 18 11/16/16 10:50 BP 112/57 11/16/16 10:50 Pulse Ox 92 11/16/16 10:50 - Abnormal Lab Findings Abnormal Lab Findings: Abnormal Lab Results 11/15/16 11/16/16 11/16/16 Range/Units 16:25 05:25 05:25 RBC 3.90 L (4.7-6.0) M/mm3 Hgb 11.0 L (13.5-18.0) gm/dL Hct 33.3 L (42.0-52.0) % MPV 10.7 H (6.0-9.5) fl Immature Gran % (Auto) 0.50 H (0.001-0.429) % Lymphocytes % 15.0 L (20-51) % Monocytes % 15.0 H (0.0-9) % Eosinophils % 7.9 H (0.0-3.0) % Lymphocytes # 0.9 L (1.5-3.5) k/mm3 PT 15.3 H (9.4-11.4) Seconds INR (Anticoag Therapy) 1.47 H (0.90-1.10) INR Chloride 95 L (97-106) mmol/L Carbon Dioxide 32.7 H (24-32.6) mmol/L BUN 24 H (6-23) mg/dL BUN/Creatinine Ratio 28.9 H (9.0-21.6) Random Glucose 167 H D (70-110) mg/dL 11/16/16 Range/Units 05:25 RBC (4.7-6.0) M/mm3 Hgb (13.5-18.0) gm/dL Hct (42.0-52.0) % MPV (6.0-9.5) fl Immature Gran % (Auto) (0.001-0.429) % Lymphocytes % (20-51) % Monocytes % (0.0-9) % Eosinophils % (0.0-3.0) % Lymphocytes # (1.5-3.5) k/mm3 PT 17.6 H (9.4-11.4) Seconds INR (Anticoag Therapy) 1.69 H (0.90-1.10) INR Chloride (97-106) mmol/L Carbon Dioxide (24-32.6) mmol/L BUN (6-23) mg/dL BUN/Creatinine Ratio (9.0-21.6) Random Glucose (70-110) mg/dL
[2016-11-16] MEDS: ISOSORBIDE MONONITRATE 30 MG TAB.SR.24H PO SCH (09:26)
[2016-11-16] MEDS: TAMSULOSIN HCL 0.4 MG CAP.SR.24H PO SCH (09:26)
[2016-11-16] MEDS: RIFAMPIN 300 MG CAPSULE PO SCH (09:26)
[2016-11-16] MEDS: FERROUS SULFATE 325 MG TABLET PO SCH (09:26)
[2016-11-16] MEDS: DOCUSATE SODIUM 100 MG CAPSULE PO SCH (09:27)
[2016-11-16] MEDS: glipiZIDE 10 MG TABLET PO SCH ×2 (09:27→17:09)
[2016-11-16] MEDS: CALCIUM CARBONATE 500 MG TAB.CHEW PO SCH ×4 (09:27→21:15)
[2016-11-16] MEDS: CLOPIDOGREL BISULFATE 75 MG TABLET PO SCH (09:27)
[2016-11-16] MEDS: MULTIVITAMINS 1 CAP CAPSULE PO SCH (09:27)
[2016-11-16] MEDS: PANTOPRAZOLE SODIUM 40 MG TABLET.EC PO SCH ×2 (09:27→17:09)
[2016-11-16] MEDS: FINASTERIDE 5 MG TABLET PO SCH (09:27)
[2016-11-16] MEDS: FLUTICASONE PROPIONATE 120 SPRAY INHALER NS SCH ×2 (09:28→21:12)
[2016-11-16] MEDS: FLUTICASONE/SALMETEROL 14 PUFF DISK.W.DEV IH SCH ×2 (09:28→21:12)
[2016-11-16] MEDS: FUROSEMIDE 10 MG/ML VIAL IV SCH (09:37)
[2016-11-16] MEDS: CLOTRIMAZOLE 15 APPL TUBE TP SCH ×2 (09:37→21:14)
[2016-11-16] MEDS: AMMONIUM LACTATE 225 APPL BTL TP SCH ×2 (09:37→21:13)
[2016-11-16 10:56] LABS: INR 1.69 INR (0.90-1.10); Prothrombin Time (Patient) 17.6 Seconds (9.4-11.4)
[2016-11-16] MEDS ORDERED: WARFARIN SODIUM PO SCH ×2 (17:00)
[2016-11-16] MEDS: ZOLPIDEM TARTRATE 5 MG TABLET PO SCH (21:13)
[2016-11-16] MEDS: rOPINIRole HCL 1 MG TABLET PO SCH (21:14)
[2016-11-16] MEDS: ENALAPRIL MALEATE 5 MG TABLET PO SCH (21:16)
[2016-11-16] MEDS: SENNOSIDES/DOCUSATE SODIUM 1 TAB TABLET PO SCH (21:17)
[2016-11-16] MEDS: SIMVASTATIN 40 MG TABLET PO SCH (21:17)
[2016-11-17 06:26] LABS: Hematocrit 33.2 % (42.0-52.0); Hemoglobin 11.1 gm/dL (13.5-18.0); Mean Cell Volume 84.3 fl (78-100); Mean Corpuscular Hemoglobin 28.2 pg (27-31); Mean Corpuscular Hgb Conc 33.4 g/dl (32-36); Mean Platelet Volume 10.3 fl (6.0-9.5); Neutrophil # 3.5 K/mm3 (1.3-6.0); Neutrophil % 61.7 % (42-75.0); Platelet Count 196 K/mm3 (150-450); Red Blood Count 3.94 M/mm3 (4.7-6.0); Red Cell Distribution Width 13.1 % (11.5-14.0); White Blood Count 5.7 K/mm3 (4.0-10.5)
[2016-11-17 06:28] LABS: Prothrombin Time (Patient) 29.4 Seconds (9.4-11.4)
[2016-11-17 06:29] LABS: Anion Gap 10.3 mmol/L (6.8-13.8); BUN/Creatinine Ratio 28.9 (9.0-21.6); Calcium * 9.3 mg/dL (7.9-10.9); Carbon Dioxide 31.9 mmol/L (24-32.6); Estimated Creat Clear 81.4; Potassium 4.2 mmol/L (3.4-4.6)
[2016-11-17 06:34] LABS: INR 2.83 INR (0.90-1.10)
[2016-11-17] MEDS: ONDANSETRON HCL/PF 2 MG/ML VIAL IV PRN (07:38)
[2016-11-17] MEDS: PANTOPRAZOLE SODIUM 40 MG TABLET.EC PO SCH ×2 (07:39→17:06)
[2016-11-17] MEDS: glipiZIDE 10 MG TABLET PO SCH ×2 (07:39→17:06)
[2016-11-17] MEDS ORDERED: BISACODYL 10 MG SUPP.RECT RC PRN (07:58)
[2016-11-17] MEDS ORDERED: ISOSORBIDE MONONITRATE 30 MG TAB.SR.24H PO SCH (09:00)
[2016-11-17] MEDS: ISOSORBIDE MONONITRATE 30 MG TAB.SR.24H PO SCH (09:26)
[2016-11-17] MEDS: FLUTICASONE PROPIONATE 120 SPRAY INHALER NS SCH (09:26)
[2016-11-17] MEDS: FERROUS SULFATE 325 MG TABLET PO SCH (09:26)
[2016-11-17] MEDS: POTASSIUM CHLORIDE 20 MEQ TABLET.SA PO SCH (09:26)
[2016-11-17] MEDS: DOCUSATE SODIUM 100 MG CAPSULE PO SCH (09:26)
[2016-11-17] MEDS: TAMSULOSIN HCL 0.4 MG CAP.SR.24H PO SCH (09:26)
[2016-11-17] MEDS: FLUTICASONE/SALMETEROL 14 PUFF DISK.W.DEV IH SCH (09:26)
[2016-11-17] MEDS: CALCIUM CARBONATE 500 MG TAB.CHEW PO SCH ×3 (09:27→17:06)
[2016-11-17] MEDS: FUROSEMIDE 10 MG/ML VIAL IV SCH (09:27)
[2016-11-17] MEDS: CLOPIDOGREL BISULFATE 75 MG TABLET PO SCH (09:27)
[2016-11-17] MEDS: MULTIVITAMINS 1 CAP CAPSULE PO SCH (09:27)
[2016-11-17] MEDS: FINASTERIDE 5 MG TABLET PO SCH (09:27)
[2016-11-17] MEDS: AMMONIUM LACTATE 225 APPL BTL TP SCH (09:53)
[2016-11-17] MEDS: CLOTRIMAZOLE 15 APPL TUBE TP SCH (10:11)
--- NOTE | 2016-11-17 11:33 | PN ---
Subjective - Date and Time Seen Date: 11/17/16 Time: 07:30 Subjective Narrative: This morning again he is nauseated after breakfast. He still has his gallbladder. I am concerned he may have cholelithiasis or chlolecystiitis, and may be at risk for readmission to hospital if I discharge him now. No SOB or chest pain. Objective - Review of Systems Generalized/Overall Review: Reports: Malaise EENTM: Reports: No Symptoms Reported Respiratory: Reports: No Symptoms Reported Cardiac: Reports: No Symptoms Reported Abdominal: Reports: Other - HPI Genitourinary Symptoms: Reports: No Symptoms Reported Musculoskeletal Complaints: Reports: No Symptoms Reported Neurological: Reports: No Symptoms Reported Skin: Reports: No Symptoms Reported Endocrine: Reports: No Symptoms Reported Misc: All systems neg except as marked - Vitals Vitals: Last Vital Signs Selected Entries 11/17/16 11/17/16 01:00 06:05 Temperature 37.0 C Temperature Oral Source Pulse Rate 73 71 Respiratory 18 20 Rate Blood Pressure 116/55 Blood Pressure Supine Position O2 Sat by Pulse 97 96 Oximetry Oxygen Delivery CPAP Method Selected Entries 11/16/16 11/17/16 05:00 05:00 Total, Intake 1030 1180 Amount Total, Output 900 1180 Amount Weight 90.5 kg 90.8 kg Laboratory Tests 11/16/16 11/16/16 11/17/16 05:25 05:25 06:08 WBC 5.9 5.7 Hgb 11.0 L 11.1 L MPV 10.7 H 10.3 H Sodium 135 Potassium 4.5 D BUN 24 H Creatinine 0.83 11/17/16 06:08 WBC Hgb MPV Sodium 131 L Potassium 4.2 BUN 22 Creatinine 0.76 - Abnormal Lab Findings Abnormal Lab Findings: Abnormal Lab Results 11/17/16 11/17/16 11/17/16 Range/Units 06:08 06:08 06:08 RBC 3.94 L (4.7-6.0) M/mm3 Hgb 11.1 L (13.5-18.0) gm/dL Hct 33.2 L (42.0-52.0) % MPV 10.3 H (6.0-9.5) fl Lymphocytes % 15.0 L (20-51) % Monocytes % 13.4 H (0.0-9) % Eosinophils % 9.1 H (0.0-3.0) % Lymphocytes # 0.9 L (1.5-3.5) k/mm3 PT 29.4 H (9.4-11.4) Seconds INR (Anticoag Therapy) 2.83 H (0.90-1.10) INR Sodium 131 L (132-142) mmol/L Chloride 93 L (97-106) mmol/L BUN/Creatinine Ratio 28.9 H (9.0-21.6) Random Glucose 196 H (70-110) mg/dL - Exam Constitutional: Present: Alert, Oriented x3, Cooperative, Well developed, Well nourished, No distress ENT Exam: Present: normal ENT inspection Neck: Present: normal inspection Respiratory: Present: no respiratory distress Cardiovascular/Chest: Present: regular rate, rhythm Extremity: Present: pedal edema Skin Exam: Present: normal color, warm/dry, no cyanosis Neurologic: Present: alert, oriented x 3 Appearance: Present: appropriate appearance, appropriate insight, neat, no memory impairment Eye contact: Present: cooperative, good eye contact, normal speech Assessment/Plan Plan Narrative: Continue present treatment. Gallbladder ultrasound - Problems/Diagnosis (1) CHF exacerbation Problem: Acute (2) Chest pain Problem: Acute Qualifiers: Chest pain type: precordial pain Qualified Code(s): R07.2 - Precordial pain (3) Nausea and vomiting Problem: Acute (4) COPD (chronic obstructive pulmonary disease) Problem: Chronic Qualifiers: COPD type: COPD with acute exacerbation Qualified Code(s): J44.1 - Chronic obstructive pulmonary disease with (acute) exacerbation (5) GERD (gastroesophageal reflux disease) Problem: Chronic (6) Coronary artery disease Problem: Acute Qualifiers: Coronary Disease-Associated Artery/Lesion type: bypass graft [place] vs. transplanted heart: [place] heart Associated angina: without angina Qualified Code(s): I25.810 - Atherosclerosis of coronary artery bypass graft(s) without angina pectoris (7) Diabetes Problem: Chronic Qualifiers: Diabetes mellitus type: type 2 (8) BENJAMIN (obstructive sleep apnea) Problem: Chronic (9) Pulmonary hypertension Problem: Chronic
[2016-11-17 14:31] VITALS: BP 100/53
[2016-11-17] MEDS ORDERED: WARFARIN SODIUM 2 MG TABLET PO ONE (17:00)
--- NOTE | 2016-11-17 17:08 | DS ---
(1) CHF exacerbation Problem: Acute Qualifiers: Congestive heart failure type: diastolic Qualified Code(s): I50.33 - Acute on chronic diastolic (congestive) heart failure (2) Chest pain Problem: Acute Qualifiers: Chest pain type: unspecified Qualified Code(s): R07.9 - Chest pain, unspecified (3) Nausea and vomiting Problem: Acute Qualifiers: Vomiting type: unspecified Vomiting Intractability: non-intractable Qualified Code(s): R11.2 - Nausea with vomiting, unspecified (4) COPD (chronic obstructive pulmonary disease) Problem: Chronic Qualifiers: COPD type: COPD with acute exacerbation Qualified Code(s): J44.1 - Chronic obstructive pulmonary disease with (acute) exacerbation (5) GERD (gastroesophageal reflux disease) Problem: Chronic Qualifiers: Esophagitis presence: without esophagitis Qualified Code(s): K21.9 - Gastro -esophageal reflux disease without esophagitis (6) Coronary artery disease Problem: Acute Qualifiers: Coronary Disease-Associated Artery/Lesion type: bypass graft [place] vs. transplanted heart: [place] heart Associated angina: without angina Qualified Code(s): I25.810 - Atherosclerosis of coronary artery bypass graft(s) without angina pectoris (7) Diabetes Problem: Chronic Qualifiers: Diabetes mellitus type: type 2 (8) BENJAMIN (obstructive sleep apnea) Problem: Chronic (9) Pulmonary hypertension Problem: Chronic Procedures Performed: none Discharge Disposition: Home self care Disposition: Home self-care Condition: Good Discharge Activity: Activity as tolerated Discharge Diet: Consistent carbs, Low salt Referrals: Kenny Uribe MD [Primary Care Provider] - Problem Oriented Discharge Instructions to Patient/Family: CHF Patient Instructions Additional Patient Instructions (free text): TCM appointment at discharge. Call Anna at [phone] when discharged. Followup Dr. Hurley 1 week CBC BMP Pro time blood test 1 week. Prescriptions (Any new or edited meds): Furosemide [Lasix] 1.5 tab PO DAILY #45 tablet Metoclopramide HCl [Reglan] 5 mg PO ACHS #28 tab Complete Home Medications List: Complete Home Medication List: Albuterol Sulfate [Albuterol Sulfate 0.63 MG/3ML] 2.5 mg IH Q4H PRN 06/12/12 Enalapril Maleate 10 mg PO HS 06/12/12 Simvastatin [Zocor] 40 mg PO HS 06/12/12 clonazePAM [Klonopin] 1 mg PO HS 06/12/12 Potassium Chloride [K-Dur] 20 meq PO DAILY #30 tablet 06/15/12 Lansoprazole [Prevacid] 30 mg PO BID 06/07/14 glipiZIDE [Glucotrol] 10 mg PO BIDAC 06/07/14 Multivitamin [One Daily Essential] 1 each PO DAILY 02/14/16 Budesonide/Formoterol Fumarate [Symbicort 160-4.5 Mcg Inhaler] 2 puff IH BID Clotrimazole [Lotrimin Cream] 15 gm TP BID 07/08/16 Ferrous Sulfate [Iron] 325 mg PO DAILY 07/08/16 Nitroglycerin [Nitrostat] 0.4 mg SL Q5MIN PRN 07/08/16 Zolpidem Tartrate [Ambien] 5 mg PO HS 07/08/16 Calcium Carbonate [Calcium] 500 mg PO QID 08/24/16 Tamsulosin HCl 0.8 mg PO DAILY 08/24/16 Triamcinolone Acetonide [Kenalog 0.025%] 1 appl TP BID PRN 08/24/16 rOPINIRole HCL [Requip] 5 mg PO HS tablet 08/27/16 Acetaminophen [Tylenol] 650 mg PO Q6H PRN 09/04/16 Ammonium Lactate [Lac-Hydrin] 1 appl TP BID 09/04/16 Fluticasone Propionate 50 mcg NS BID 09/04/16 Clopidogrel Bisulfate [Plavix] 75 mg PO DAILY tablet 09/07/16 [place]-Probenecid 1 tab PO BID PRN 11/14/16 Docusate Sodium [Stool Softener] 100 mg PO DAILY 11/14/16 Finasteride [Proscar] 5 mg PO DAILY 11/14/16 Sennosides/Docusate Sodium [Senna-S Tablet] 1 each PO HS 11/14/16 Warfarin Sodium [Coumadin] 7 mg PO DAILY@1700 11/14/16 Isosorbide Mononitrate [Imdur] 15 mg PO DAILY 11/16/16 Calcium Carbonate [Tums] 500 mg PO QID tab.chew 11/17/16 Furosemide [Lasix] 1.5 tab PO DAILY #45 tablet 11/17/16 Isosorbide Mononitrate [Imdur] 15 mg PO DAILY tab.sr.24h 11/17/16 Metoclopramide HCl [Reglan] 5 mg PO ACHS #28 tab 11/17/16
[2016-11-18] MEDS ORDERED: WARFARIN SODIUM PO SCH ×2 (17:00)
== END 2016-11-17 18:12 | disposition home or self-care (01) | DRG 190 ==
LOC: ER 13:19 → MS 17:39 → OBSVTOIN 11-15 10:46
PROVIDERS: ADMIT Nurse Practitioner Critical Care Medicine; ATTEND Allergy & Immunology
DX: J44.1 Chronic obstructive pulmonary disease with (acute) exacerbation (principal); I50.33 Acute on chronic diastolic (congestive) heart failure; I69.354 Hemiplegia and hemiparesis following cerebral infarction affecting left non-dominant side; I25.810 Atherosclerosis of coronary artery bypass graft(s) without angina pectoris; E87.6 Hypokalemia; R14.0 Abdominal distension (gaseous); N40.0 Benign prostatic hyperplasia without lower urinary tract symptoms; I10 Essential (primary) hypertension; E78.5 Hyperlipidemia, unspecified; I48.2 Chronic atrial fibrillation; E11.9 Type 2 diabetes mellitus without complications; I27.2 Other secondary pulmonary hypertension; Z79.01 Long term (current) use of anticoagulants; Z87.891 Personal history of nicotine dependence; Z85.038 Personal history of other malignant neoplasm of large intestine; Z95.1 Presence of aortocoronary bypass graft
CPT/HCPCS: 36415; 71020; 74000; 76705; 80048; 80053; 83880; 84484; 85025; 85610; 85730; 87081; 93005; 94640; 94660; 96374; 96375; 97110; 97116; 97161; 97165; 99285; G0378; G8978; G8979; G8980; G8984; G8985; G8986; J2405

== ENCOUNTER 2019-04-04 09:52 | Observation (INO) ==
--- NOTE | 2019-04-04 10:19 | ERNOTE ---
Chest Pain/Cardiac HPI Date of Service: 04/04/19 Chief Complaint: Chest Pain Time Seen by Provider: 04/04/19 10:17 Source: patient, family, RN notes reviewed, past records Exam Limitations: no limitations Immunizations: IMMUNIZATION HX Immunizations Up to Date Yes History of Influenza Vaccine Yes Hx Pneumococcal Vaccination Yes Allergies/Adverse Reactions: Allergies ketoprofen [From Oruvail] Adverse Reaction (Verified 04/04/19 10:05) unknown metoprolol Adverse Reaction (Verified 04/04/19 10:05) unknown rofecoxib [From Vioxx] Adverse Reaction (Verified 04/04/19 10:05) unknown Home Medications: HOME MEDICATIONS Multivitamin [One Daily Essential] 1 ea PO DAILY 02/14/16 [Last Taken Unknown] Nitroglycerin [Nitrostat] 0.4 mg SL Q5MIN PRN 07/08/16 [Last Taken Unknown] Acetaminophen [Tylenol] 650 mg PO Q6H PRN 09/04/16 [Last Taken Unknown] Ammonium Lactate [Lac-Hydrin] 1 appl TP BID 09/04/16 [Last Taken Unknown] Docusate Sodium [Stool Softener] 100 mg PO DAILY 11/14/16 [Last Taken Unknown] aspirin 81 mg tablet,delayed release 81 mg PO DAILY 11/09/17 [Last Taken Unknown] Albuterol Sulfate [Albuterol Sulfate 2.5 MG/0.5ML] 2.5 mg INHALATION Q4H PRN vial.neb 03/20/18 [Last Taken Unknown] Dental Adhesive [Fixodent Denture Adhesive] 1 appl TOPICAL PRN PRN tube 03/20/18 [Last Taken Unknown] budesonide-formoterol HFA 160 mcg-4.5 mcg/actuation aerosol inhaler 2 puff IH BID #10.2 g 03/29/18 [Last Taken Unknown] triamcinolone acetonide 0.025 % topical cream 1 applic TP BID #80 g 05/15/18 [Last Taken Unknown] potassium chloride 20 mEq tablet,extended release(part/cryst) 20 meq PO DAILY tab 07/05/18 [Last Taken Unknown] tamsulosin 0.4 mg capsule 0.8 mg PO DAILY #180 cap 07/25/18 [Last Taken Unknown] glipizide 5 mg tablet 10 mg PO BIDAC #360 tab 08/28/18 [Last Taken Unknown] omeprazole 40 mg capsule,delayed release 40 mg PO DAILY #90 cap 09/18/18 [Last Taken Unknown] ranitidine HCl 300 mg tablet 300 mg PO HS #90 tab 09/18/18 [Last Taken Unknown] rosuvastatin 10 mg tablet 10 mg PO HS #90 tab 10/12/18 [Last Taken Unknown] isosorbide mononitrate 30 mg tablet,extended release 24 hr 15 mg PO DAILY #45 tab 10/23/18 [Last Taken Unknown] warfarin 5 mg tablet 5 mg PO DAILY #30 tab 11/14/18 [Last Taken Unknown] Enalapril Maleate [Vasotec] 5 mg PO HS 11/21/18 [Last Taken Unknown] metformin 500 mg tablet,extended release 24 hr 500 mg PO HS #30 tab 11/28/18 [Last Taken Unknown] clonazepam 1 mg tablet 1 mg PO HS #90 tab 01/15/19 [Last Taken Unknown] warfarin 1 mg tablet 1 mg PO .COMPLEX #45 tab 03/26/19 [Last Taken Unknown] furosemide 40 mg tablet 20 mg PO DAILY #45 tab 03/29/19 [Last Taken Unknown] Narrative: Trung is a 83-year-old male brought to the emergency department from home by his for chest pain that began earlier this morning. He currently denies any chest pain. He began having a cough with yellow sputum yesterday. He also reports nasal discharge and congestion. He states that he generally does not feel well. His chest pain has been intermittent in the lower sternum. It does not radiate. It does not vary with cough or activity. He is anticoagulated on Coumadin. He has not taken any of his routine medications this morning. He has a history of COPD and does nebulizer treatments at home. His oxygen saturation was 90% on room air on arrival. He does not wear home oxygen. Date (Duration): 04/04/19 Timing: intermittent Severity/Quality: moderate, aching Location: substernal Chest Pain Radiation: no radiation Activities at Onset: none Modifying Factors - Improves: Present: nothing Modifying Factors - Worsens: Present: nothing Nitro Today/Relief: no nitro taken today Aspirin Treatment Today: no aspirin today Associated Symptoms: Present: cough, shortness of breath. Absent: headache, dizziness, syncope, diaphoresis, fever/chills, nausea, vomiting, abdominal pain Prior Treatment: Denies: recently seen Review of Systems - Review of Systems Constitutional: Present: fatigue, malaise. Absent: recent illness, fever, chills EYE: Present: no symptoms reported ENT: Present: nose congestion, nasal drainage. Absent: ear pain, sore throat Respiratory: Present: shortness of breath, cough, wheezing Cardiology: Present: chest pain, edema Gastrointestinal/Abdominal: Absent: nausea, vomiting, abdominal pain Genitourinary: Absent: frequency, dysuria, decreased urinary output Musculoskeletal: Absent: muscle pain, joint pain Skin: Absent: rash, lesions Neurological: Absent: headache, dizziness/light-headedness Endocrine: Present: no symptoms reported Hematologic/Lymphatic: Present: easy bruising, easy bleeding Psych: Present: no symptoms reported Medical History (Last Reviewed 04/04/19 @ 11:46 by Ivelisse Esquivel NP) Actinic keratoses Onset Date: ~06/18/15 Atrial fibrillation Onset Date: ~11/2009 BPH without urinary obstruction Onset Date: Unknown COPD (chronic obstructive pulmonary disease) Onset Date: Unknown CVA (cerebral vascular accident) Onset Date: ~2016 Constipation Onset Date: ~12/27/16 Diabetes Onset Date: Unknown type 2 GERD (gastroesophageal reflux disease) Onset Date: Unknown Left ventricular hypertrophy by electrocardiogram Onset Date: ~01/18/15 mild concentric LVH,apical dyskinesia EF >55%, diastolic dysfunction,RVSP 42, ECHO, [facility] 10/04/11 Mild persistent chronic asthma with acute exacerbation Onset Date: ~07/10/11 Murmur, cardiac Onset Date: Unknown Obstructive sleep apnea Onset Date: ~06/03/15 AHI 4/hr,lowest O2 sat 85%, [facility] 05/22/2015 Urinary hesitancy Onset Date: ~10/12/16 Colon neoplasm Onset Date: Unknown sigmoid,malignant Surgical History: Surgical History (Last Reviewed 04/04/19 @ 11:46 by Ivelisse Esquivel NP) H/O cataract extraction Onset Date: ~2005 2004, 2005 H/O colonoscopy Onset Date: 12/26/1703/2006-colon ca. Tinguely-04/04/07 negative. 05/07/08 negative. 01/22/11 diverticulosis. 12/26/17 Bagan-destruction of 4 2mm polyps. diverticulosis. Recheck 5 yrs. History of esophagogastroduodenoscopy (EGD) Onset Date: 12/26/17 Bagan-clotest negative. Benign reactive gastropathy/chemical gastritis. History of prostate surgery Onset Date: ~2005 ablation of the prostate with cystoscopy History of removal of Port-a-Cath Onset Date: ~2006 Tinguely-06/07/06 placement. 12/27/06 removal Hx of CABG Onset Date: ~1994 S/P placement of cardiac pacemaker Onset Date: ~02/2008 battery changed in 04/2017 (EPS) S/P rotator cuff repair Onset Date: ~1995 right Status post colon resection Onset Date: ~05/17/06 sigmoid colon resection Family History: Family History (Last Reviewed 04/04/19 @ 11:46 by Ivelisse Esquivel NP) Brother , leukemia Cancer Father Heart disease Mother Gallbladder disease Sister , age 70's Cancer breast Sister , age 60's-blood clot History of blood clots Brother , age 64-diabetes No problems noted. Brother , age 86-sepsis No problems noted. Sister Heart disease 2 sisters- Sister Myocardial infarction Social History: (Last Reviewed 04/04/19 @ 11:47 by Ivelisse Esquivel NP) Social History: adopted: No assisted: No Marital status: lives independently: No household members: spouse number of children: 4 current occupational status: retired Service: Yes branch: [employer] Tobacco: Smoking Status: Never smoker second hand exposure: No Alcohol: alcohol intake: current Alcohol type: beer alcohol intake frequency: holiday/special occasion details: 1 drink ocassionally Substance Use: substance use type: does not use Dietary Habits: caffeine: Yes Type: coffee Pets: pets and animals: dog(s) Personal Safety: victim of physical abuse: No victim of emotional abuse: No Physical Exam - Physical Exam General Appearance: Present: wd/wn, alert, mild distress Head Exam: Present: normal inspection Eye Exam: Normal inspection: bilateral Ears, Nose, Throat: Present: normal ENT inspection, normal pharynx Neck: Present: normal inspection, nontender, supple Respiratory: Present: accessory muscle use, expiration (prolonged), wheezing Cardiovascular/Chest: Present: regular rate, rhythm, normal peripheral pulses Gastrointestinal/Abdominal: Present: nontender, nondistended, soft Extremity Exam: Present: non-tender, normal range of motion, pedal edema - trace Neurological Exam: Present: alert, oriented, normal mood/affect, no motor/sensory deficits Skin Exam: Present: warm/dry, pallor Progress - Results and Orders Patient's Lab Results:: I have reviewed the patient's lab results. - Vital Signs Patient's Vital Signs:: I have reviewed the patient's vital signs. Vital Signs: Vital Signs 04/04/19 10:02 04/04/19 10:10 Temperature 36.9 C Pulse Rate 71 Respiratory Rate 15 Blood Pressure 177/55 H O2 Sat by Pulse Oximetry 90 L 95 - EKG EKG #1 EKG: other - Paced rhythm EKG read: Reviewed by me - X-Ray X-Ray #1 X-Ray: chest Interpretation: Reviewed by me X-ray Comments: Findings: There is a left cardiac pacemaker. There are postoperative changes from an apparent CABG. Heart size is upper limits of normal. Vascularity appears within normal limits. There are no focal infiltrates or effusions. There are scattered granuloma. There are degenerative changes in the thoracic spine. IMPRESSION: COPD EMPHYSEMA. HEART SIZE UPPER LIMITS OF NORMAL. POSTOPERATIVE CHANGES. GRANULOMATOUS DISEASE. NO ACUTE CARDIOPULMONARY DISEASE OTHERWISE IDENTIFIED. Electronically signed by Adán Vargas M.D.. - Progress/Reassessment Chief Complaint: Chest Pain Progress:: Improved Plan - Plan Plan: The patient is unable to maintain his oxygen saturation above 90% without supplemental oxygen. He runs in the upper 80s on room air. His EKG and troponin were unremarkable for any cardiac etiology for his chest pain. His BNP is stable, as is his chest x-ray. I spoke to his primary care provider, Dr. Hurley, who will admit the patient to observation for a COPD exacerbation. Departure Clinical Impression: COPD exacerbation - Departure Disposition: Still a patient Condition: Stable Referrals: Kenny Uribe MD [Primary Care Provider] -
[2019-04-04 10:22] LABS: Hematocrit 36.4 % (42.0-52.0); Hemoglobin 11.5 gm/dL (13.5-18.0); Mean Cell Volume 90.3 fl (78-100); Mean Corpuscular Hemoglobin 28.5 pg (27-31); Mean Corpuscular Hgb Conc 31.6 g/dl (32-36); Mean Platelet Volume 10.1 fl (8-11.3); Platelet Count 140 K/mm3 (150-450); Red Blood Count 4.03 M/mm3 (4.7-6.0); Red Cell Distribution Width 13.4 % (11.5-14.0); White Blood Count 6.2 K/mm3 (4.0-10.5)
[2019-04-04] MEDS ORDERED: ALBUTEROL SULFATE/IPRATROPIUM 3 ML NEBU IH ONE (10:31)
[2019-04-04] MEDS ORDERED: ASPIRIN 81 MG TAB.CHEW PO ONE (10:31)
[2019-04-04 10:39] LABS: INR 2.41 INR (0.92-1.08); Partial Thrombolplastin Time 38.3 Seconds (24-32); Prothrombin Time (Patient) 23.1 Seconds (9.1-10.7)
[2019-04-04 10:42] LABS: ALT 9 U/L (19-67); AST 15 U/L (0-48); Albumin * 3.6 gm/dl (3.4-5.0); Alkaline Phosphatase * 86 U/L (50-170); BUN/Creatinine Ratio 20.7 (9.0-21.6); Bilirubin, Total 0.4 mg/dL (0.0-1.1); Blood Urea Nitrogen 18 mg/dL (6-23); Ca. Corrected For Albumin 8.5 mg/dL (8.4-10.2); Calcium * 8.5 mg/dL (7.9-10.9); Carbon Dioxide 28.7 mmol/L (24-32.6); Chloride 102 mmol/L (97-106); Glucose * 173 mg/dL (70-110); Potassium 3.7 mmol/L (3.4-4.6); Sodium 140 mmol/L (132-142); Troponin I Less than 0.017 ng/mL (0.00-0.10)
[2019-04-04] MEDS ORDERED: METHYLPREDNISOLONE SOD SUCC/PF 125 MG/2 ML VIAL IV ONE (11:58)
[2019-04-04] MEDS ORDERED: LEVOFLOXACIN 500 MG TABLET PO ONE (11:58)
[2019-04-04] MEDS ORDERED: ACETAMINOPHEN 325 MG TABLET PO PRN (13:23)
[2019-04-04] MEDS ORDERED: NITROGLYCERIN 0.4 MG/TAB BTL SL PRN (13:23)
[2019-04-04] MEDS ORDERED: TRIAMCINOLONE ACETONIDE 80 APPL TUBE TP PRN (13:23)
[2019-04-04] MEDS ORDERED: TRIAMCINOLONE ACETONIDE 15 APPL TUBE TP PRN (14:15)
[2019-04-04] MEDS: ALBUTEROL SULFATE 2.5 MG/0.5 ML VIAL.NEB IH PRN (14:34)
[2019-04-04] MEDS: glipiZIDE 10 MG TABLET PO SCH (16:50)
[2019-04-04] MEDS ORDERED: WARFARIN SODIUM 6 MG TABLET PO SCH (17:00)
[2019-04-04] MEDS ORDERED: BLOOD SUGAR DIAGNOSTIC 1 EACH STRIP MC SCH (17:00)
[2019-04-04] MEDS ORDERED: WARFARIN SODIUM 1 MG TABLET PO SCH (17:00)
[2019-04-04] MEDS: BUDESONIDE 0.25 MG/2 ML VIAL.NEB IH SCH ×3 (17:03→18:11)
[2019-04-04] MEDS: FORMOTEROL FUMARATE 20 MCG/2 ML VIAL IH SCH ×2 (17:04→18:09)
--- NOTE | 2019-04-04 17:20 | HP ---
Chief Complaint - Chief Complaint Date of Service: 04/04/19 Time of Service: 17:05 Chief Complaint: Short of breath History of Present Illness: Trung is a 83-year-old male brought to the emergency department from home by his for progressively worsening shortness of breath which began yesterday and chest pain that began earlier this morning. He currently denies any chest pain. He began having a cough with yellow sputum yesterday. He still has a productive cough, but now the sputum is white. He has also been hoarse since yesterday. He also reports nasal discharge and congestion. He states that he generally does not feel well. His chest pain has been intermittent in the lower sternum. It does not radiate. It does not vary with cough or activity. He is anticoagulated on Coumadin. He has not taken any of his routine medications this morning. He has a history of COPD and does nebulizer treatments at home. His oxygen saturation was 90% on room air on arrival. He does not wear home oxygen. On the other hand he does use a positive airway pressure device at home. In the emergency room he was given a dose of Solu-Medrol, levofloxacin and nebulizer treatment. He now feels much better. He has not had any fever chills or sweats through the course of this illness. Medical History (Last Reviewed 04/04/19 @ 17:08 by Kenny Uribe MD) Congestive heart failure (CHF) Actinic keratoses Onset Date: ~06/18/15 Atrial fibrillation Onset Date: ~11/2009 BPH without urinary obstruction Onset Date: Unknown COPD (chronic obstructive pulmonary disease) Onset Date: Unknown CVA (cerebral vascular accident) Onset Date: ~2016 Constipation Onset Date: ~12/27/16 Diabetes Onset Date: Unknown type 2 GERD (gastroesophageal reflux disease) Onset Date: Unknown Left ventricular hypertrophy by electrocardiogram Onset Date: ~01/18/15 mild concentric LVH,apical dyskinesia EF >55%, diastolic dysfunction,RVSP 42, ECHO, [facility] 10/04/11 Mild persistent chronic asthma with acute exacerbation Onset Date: ~07/10/11 Murmur, cardiac Onset Date: Unknown Obstructive sleep apnea Onset Date: ~06/03/15 AHI 4/hr,lowest O2 sat 85%, [facility] 05/22/2015 Urinary hesitancy Onset Date: ~10/12/16 Colon neoplasm Onset Date: Unknown sigmoid,malignant Surgical History: Surgical History (Last Reviewed 04/04/19 @ 17:08 by Kenny Uribe MD) H/O cataract extraction Onset Date: ~2005 2004, 2005 H/O colonoscopy Onset Date: 12/26/1703/2006-colon ca. Tinguely-04/04/07 negative. 05/07/08 negative. 01/22/11 diverticulosis. 12/26/17 Bagan-destruction of 4 2mm polyps. diverticulosis. Recheck 5 yrs. History of esophagogastroduodenoscopy (EGD) Onset Date: 12/26/17 Bagan-clotest negative. Benign reactive gastropathy/chemical gastritis. History of prostate surgery Onset Date: ~2005 ablation of the prostate with cystoscopy History of removal of Port-a-Cath Onset Date: ~2006 Jhoan-06/07/06 placement. 12/27/06 removal Hx of CABG Onset Date: ~1994 S/P placement of cardiac pacemaker Onset Date: ~02/2008 battery changed in 04/2017 (Metabolon) S/P rotator cuff repair Onset Date: ~1995 right Status post colon resection Onset Date: ~05/17/06 sigmoid colon resection Family History: Family History (Last Reviewed 04/04/19 @ 17:08 by Kenny Uribe MD) Brother , leukemia Cancer Father Heart disease Mother Gallbladder disease Sister , age 70's Cancer breast Sister , age 60's-blood clot History of blood clots Brother , age 64-diabetes No problems noted. Brother , age 86-sepsis No problems noted. Sister Heart disease 2 sisters- Sister Myocardial infarction Social History: (Last Reviewed 04/04/19 @ 17:08 by Kenny Uribe MD) Social History: adopted: No fdc: No Marital status: lives independently: No household members: spouse number of children: 4 current occupational status: retired Service: Yes branch: [employer] Tobacco: Smoking Status: Never smoker second hand exposure: No Alcohol: alcohol intake: current Alcohol type: beer alcohol intake frequency: holiday/special occasion details: 1 drink ocassionally Substance Use: substance use type: does not use Dietary Habits: caffeine: Yes Type: coffee Pets: pets and animals: dog(s) Personal Safety: victim of physical abuse: No victim of emotional abuse: No Review Of Systems (GEN) - Review of Systems Generalized/Overall Review: Present: Malaise EENTM: Absent: Eye Pain, Blurred Vision Respiratory: Present: Cough, Shortness of Breath, Wheezing. Absent: Orthopnea Cardiac: Present: Chest Pain. Absent: Edema Abdominal: Absent: Nausea, Abdominal Pain, Constipation, Diarrhea Genitourinary: Absent: Burning, Frequency Musculoskeletal: Absent: Joint Pain, Back Pain Neurological: Absent: Headache, Parasthesia Skin: Absent: Lesions, Rash Endocrine: Present: Intolerance to Cold, Intolerance to Heat Additional Comments: He states that should he have a cardiac arrest he wants CPR only. Immunizations: IMMUNIZATION HX Immunizations Up to Date Yes History of Influenza Vaccine Yes Hx Pneumococcal Vaccination Yes Allergies/Adverse Reactions: Allergies Allergy/AdvReac Type Severity Reaction Status Date / Time ketoprofen [From Oruvail] AdvReac unknown Verified 04/04/19 12:38 metoprolol AdvReac unknown Verified 04/04/19 12:38 rofecoxib [From Vioxx] AdvReac unknown Verified 04/04/19 12:38 Home Medications: HOME MEDICATIONS Multivitamin [One Daily Essential] 1 ea PO DAILY 02/14/16 [Last Taken Unknown] Nitroglycerin [Nitrostat] 0.4 mg SL Q5MIN PRN 07/08/16 [Last Taken Unknown] Acetaminophen [Tylenol] 650 mg PO Q6H PRN 09/04/16 [Last Taken Unknown] Ammonium Lactate [Lac-Hydrin] 1 appl TP DAILY 09/04/16 [Last Taken Unknown] Docusate Sodium [Stool Softener] 100 mg PO DAILY 11/14/16 [Last Taken Unknown] aspirin 81 mg tablet,delayed release 81 mg PO DAILY 11/09/17 [Last Taken Unknown] Albuterol Sulfate [Albuterol Sulfate 2.5 MG/0.5ML] 2.5 mg INHALATION Q4H PRN vial.neb 03/20/18 [Last Taken Unknown] Dental Adhesive [Fixodent Denture Adhesive] 1 appl TOPICAL PRN PRN tube 03/20/18 [Last Taken Unknown] budesonide-formoterol HFA 160 mcg-4.5 mcg/actuation aerosol inhaler 2 puff IH BID #10.2 g 03/29/18 [Last Taken Unknown] tamsulosin 0.4 mg capsule 0.8 mg PO DAILY #180 cap 07/25/18 [Last Taken Unknown] glipizide 5 mg tablet 10 mg PO BIDAC #360 tab 08/28/18 [Last Taken Unknown] rosuvastatin 10 mg tablet 10 mg PO HS #90 tab 10/12/18 [Last Taken Unknown] Enalapril Maleate [Vasotec] 5 mg PO HS 11/21/18 [Last Taken Unknown] metformin 500 mg tablet,extended release 24 hr 500 mg PO HS #30 tab 11/28/18 [Last Taken Unknown] clonazepam 1 mg tablet 1 mg PO HS #90 tab 01/15/19 [Last Taken Unknown] Furosemide [Lasix] 40 mg PO DAILY 04/04/19 [Last Taken Unknown] Isosorbide Mononitrate [Imdur] 30 mg PO DAILY 04/04/19 [Last Taken Unknown] Lansoprazole 30 mg PO BID 04/04/19 [Last Taken Unknown] Potassium Chloride [Klor-Con M10] 10 meq PO DAILY 04/04/19 [Last Taken Unknown] Warfarin Sodium 6 mg PO SUTUTHFR 04/04/19 [Last Taken Unknown] Warfarin Sodium [Coumadin] 7 mg PO SUTUTHSA 04/04/19 [Last Taken Unknown] Exam - Exam Vital Signs: Vital Signs - Last Taken Temp 36.9 C 04/04/19 14:51 Pulse 77 04/04/19 14:51 Resp 24 H 04/04/19 17:03 BP 147/48 04/04/19 14:51 Pulse Ox 93 04/04/19 17:03 Constitutional: Present: Alert, Oriented x3, Cooperative, Well developed, Well nourished, No distress ENT Exam: Present: normal ENT inspection, hearing grossly normal, other - Sounds hoarse Eye Exam: bilateral eye: normal inspection, PERRL, EOMI Neck: Present: normal inspection. Absent: lymphadenopathy (R), lymphadenopathy (L), thyromegaly Back Exam: Present: normal inspection Breasts: Present: Other - Male/normal Respiratory: Present: chest non-tender, no respiratory distress, no accessory muscle use, wheezing - Diffuse Cardiovascular/Chest: Present: regular rate, rhythm, no edema, no gallop, no JVD, no murmur Peripheral Pulses: carotid (R): 1+, carotid (L): 1+ Abdomen: Present: Normal bowel sounds, soft, nontender, nondistended, no hepatospenomegaly, no masses. Absent: tender /Rectal: Present: Exam deferred Extremity: Present: normal range of motion, non-tender, normal inspection Skin Exam: Present: normal color, warm/dry, no cyanosis Lymphatic: Present: no adenopathy Neurologic: Present: normal mood/affect Appearance: Present: appropriate appearance, appropriate insight, neat, no memory impairment Eye contact: Present: cooperative, good eye contact, normal speech Thoughts: Present: normal thought pattern Diagnostic Studies: I reviewed his lab work. His hemoglobin was slightly low at 11.5 (chronic). His INR is where we would like it at 2.41. His BNP is 1072, but most consistent with his chronic heart disease than with active congestive heart failure. His white blood count is 6.2. His troponin is normal and his EKG shows no sign of ischemia or infarct. We will plan to repeat blood work tomorrow morning. Abnormal Lab Results 04/04/19 04/04/19 04/04/19 Range/Units 10:15 10:15 10:15 RBC 4.03 L (4.7-6.0) M/mm3 Hgb 11.5 L (13.5-18.0) gm/dL Hct 36.4 L (42.0-52.0) % MCHC 31.6 L (32-36) g/dl Plt Count 140 L (150-450) K/mm3 Immature Gran % (Auto) 0.50 H (0.001-0.429) % Neutrophils % 80.0 H (42-75.0) % Lymphocytes % 7.8 L (20-51) % Monocytes % 10.2 H (0.0-9) % Lymphocytes # 0.48 L (1.5-3.5) k/mm3 PT 23.1 H (9.1-10.7) Seconds INR (Anticoag Therapy) 2.41 H (0.92-1.08) INR PTT ([place]) 38.3 H (24-32) Seconds Random Glucose 173 H (70-110) mg/dL ALT 9 L (19-67) U/L B-Natriuretic Peptide (5-650) pg/mL 04/04/19 Range/Units 10:15 RBC (4.7-6.0) M/mm3 Hgb (13.5-18.0) gm/dL Hct (42.0-52.0) % MCHC (32-36) g/dl Plt Count (150-450) K/mm3 Immature Gran % (Auto) (0.001-0.429) % Neutrophils % (42-75.0) % Lymphocytes % (20-51) % Monocytes % (0.0-9) % Lymphocytes # (1.5-3.5) k/mm3 PT (9.1-10.7) Seconds INR (Anticoag Therapy) (0.92-1.08) INR PTT ([place]) (24-32) Seconds Random Glucose (70-110) mg/dL ALT (19-67) U/L B-Natriuretic Peptide 1072 H (5-650) pg/mL Laboratory Results WBC 6.2 K/mm3 (4.0-10.5) 04/04/19 10:15 RBC 4.03 M/mm3 (4.7-6.0) L 04/04/19 10:15 Hgb 11.5 gm/dL (13.5-18.0) L 04/04/19 10:15 Hct 36.4 % (42.0-52.0) L 04/04/19 10:15 MCV 90.3 fl (78-100) 04/04/19 10:15 MCH 28.5 pg (27-31) 04/04/19 10:15 MCHC 31.6 g/dl (32-36) L 04/04/19 10:15 RDW 13.4 % (11.5-14.0) 04/04/19 10:15 Plt Count 140 K/mm3 (150-450) L 04/04/19 10:15 MPV 10.1 fl (8-11.3) 04/04/19 10:15 Immature Gran % (Auto) 0.50 % (0.001-0.429) H 04/04/19 10:15 Immature Gran # (Auto) 0.03 K/mm3 (0.000-0.0310) 04/04/19 10:15 Neutrophils % 80.0 % (42-75.0) H 04/04/19 10:15 Lymphocytes % 7.8 % (20-51) L 04/04/19 10:15 Monocytes % 10.2 % (0.0-9) H 04/04/19 10:15 Eosinophils % 1.0 % (0.0-3.0) 04/04/19 10:15 Basophils % 0.5 % (0.0-1.0) 04/04/19 10:15 Nucleated RBC % 0.0 k/mm3 (0-1) 04/04/19 10:15 Neutrophils # 5.0 K/mm3 (1.3-6.0) 04/04/19 10:15 Lymphocytes # 0.48 k/mm3 (1.5-3.5) L 04/04/19 10:15 Monocytes # 0.6 k/mm3 (0.0-1.0) 04/04/19 10:15 Eosinophils # 0.1 k/mm3 (0.0-0.7) 04/04/19 10:15 Absolute Basophils 0.0 k/mm3 (0.0-0.1) 04/04/19 10:15 PT 23.1 Seconds (9.1-10.7) H 04/04/19 10:15 INR (Anticoag Therapy) 2.41 INR (0.92-1.08) H 04/04/19 10:15 PTT ([place]) 38.3 Seconds (24-32) H 04/04/19 10:15 Sodium 140 mmol/L (132-142) 04/04/19 10:15 Plasma Sodium 141 mmol/L (130-142) 04/04/19 10:15 Potassium 3.7 mmol/L (3.4-4.6) 04/04/19 10:15 Chloride 102 mmol/L (97-106) 04/04/19 10:15 Carbon Dioxide 28.7 mmol/L (24-32.6) 04/04/19 10:15 Anion Gap 13.0 mmol/L (6.8-13.8) 04/04/19 10:15 BUN 18 mg/dL (6-23) 04/04/19 10:15 Creatinine 0.87 mg/dL (0.4-1.4) 04/04/19 10:15 Est GFR (Non-Af Amer) 90 mL/min (60-130) 04/04/19 10:15 BUN/Creatinine Ratio 20.7 (9.0-21.6) 04/04/19 10:15 Random Glucose 173 mg/dL (70-110) H 04/04/19 10:15 Calcium 8.5 mg/dL (7.9-10.9) 04/04/19 10:15 Calcium Adj for Albumin 8.5 mg/dL (8.4-10.2) 04/04/19 10:15 Total Bilirubin 0.4 mg/dL (0.0-1.1) 04/04/19 10:15 AST 15 U/L (0-48) 04/04/19 10:15 ALT 9 U/L (19-67) L 04/04/19 10:15 Alkaline Phosphatase 86 U/L (50-170) 04/04/19 10:15 Troponin I Less than 0.017 ng/mL (0.00-0.10) 04/04/19 10:15 B-Natriuretic Peptide 1072 pg/mL (5-650) H 04/04/19 10:15 Total Protein 7.0 gm/dL (6.2-8.2) 04/04/19 10:15 Albumin 3.6 gm/dl (3.4-5.0) 04/04/19 10:15 His chest x-ray is without acute findings. Assessment/Plan - Assessment/Plan (1) Acute exacerbation of chronic obstructive airways disease Assessment: Current treatment plan is oral antibiotics, breathing treatments, oxygen as needed and IV steroids. He is much better and if he continues to make such positive progress we will discharge him tomorrow morning. Problem: Acute (2) Diabetes Assessment: We will monitor his diabetes especially in view of the use of corticosteroids. We will adjust medication accordingly. Problem: Chronic Qualifiers: Diabetes mellitus type: type 2 Diabetes mellitus complication status: without complication (3) BENJAMIN (obstructive sleep apnea) Assessment: We will continue his positive airway pressure device when he is sleeping. Problem: Chronic (4) Hypoxia Assessment: We will provide as needed oxygen to keep his O2 saturation more than 90%. The hypoxia is acute on chronic. Normally his O2 sats are above 90% however. Problem: Acute (5) Sleep apnea Problem: Chronic Qualifiers: Sleep apnea type: obstructive Qualified Code(s): G47.33 - Obstructive sleep apnea (adult) (pediatric) (6) Atrial fibrillation Problem: Chronic Qualifiers: Atrial fibrillation type: longstanding persistent Qualified Code(s): I48.11 - Longstanding persistent atrial fibrillation (7) Hx of acquired congestive heart failure Assessment: We will monitor for emergence of worsening congestive heart failure while he is here being treated for acute bronchitis Problem: Chronic
[2019-04-04] MEDS ORDERED: TAMSULOSIN HCL 0.4 MG CAP.SR.24H PO SCH (18:00)
[2019-04-04] MEDS: AMMONIUM LACTATE 225 APPL BTL TP SCH (20:29)
[2019-04-04] MEDS: FAMOTIDINE 20 MG TABLET PO SCH (20:29)
[2019-04-04] MEDS ORDERED: clonazePAM 1 MG TABLET PO SCH (21:00)
[2019-04-04] MEDS ORDERED: ROSUVASTATIN CALCIUM 10 MG TABLET PO SCH (21:00)
[2019-04-05] MEDS: FORMOTEROL FUMARATE 20 MCG/2 ML VIAL IH SCH (06:15)
[2019-04-05] MEDS: BUDESONIDE 0.25 MG/2 ML VIAL.NEB IH SCH (06:15)
[2019-04-05] MEDS: ALBUTEROL SULFATE 2.5 MG/0.5 ML VIAL.NEB IH PRN (06:16)
[2019-04-05 06:41] LABS: Hematocrit 34.5 % (42.0-52.0); Hemoglobin 10.9 gm/dL (13.5-18.0); Mean Cell Volume 89.6 fl (78-100); Mean Corpuscular Hemoglobin 28.3 pg (27-31); Mean Corpuscular Hgb Conc 31.6 g/dl (32-36); Mean Platelet Volume 10.3 fl (8-11.3); Neutrophil # 4.1 K/mm3 (1.3-6.0); Neutrophil % 84.3 % (42-75.0); Platelet Count 146 K/mm3 (150-450); Red Blood Count 3.85 M/mm3 (4.7-6.0); Red Cell Distribution Width 13.5 % (11.5-14.0); White Blood Count 4.8 K/mm3 (4.0-10.5)
[2019-04-05 06:48] LABS: Prothrombin Time (Patient) 26.9 Seconds (9.1-10.7)
[2019-04-05 06:49] LABS: Anion Gap 12.2 mmol/L (6.8-13.8); BUN/Creatinine Ratio 21.2 (9.0-21.6); Calcium * 8.5 mg/dL (7.9-10.9); Carbon Dioxide 28.8 mmol/L (24-32.6); Estimated Creat Clear 72.6; INR 2.83 INR (0.92-1.08)
[2019-04-05] MEDS: glipiZIDE 10 MG TABLET PO SCH (06:50)
--- NOTE | 2019-04-05 07:04 | DS ---
(1) Acute exacerbation of chronic obstructive airways disease Diagnosis(s): almost back to baseline Problem: Acute (2) Diabetes Problem: Chronic Qualifiers: Diabetes mellitus type: type 2 Diabetes mellitus complication status: without complication (3) BENJAMIN (obstructive sleep apnea) Problem: Chronic (4) Hypoxia Problem: Acute (5) Sleep apnea Problem: Chronic Qualifiers: Sleep apnea type: obstructive Qualified Code(s): G47.33 - Obstructive sleep apnea (adult) (pediatric) (6) Atrial fibrillation Problem: Chronic Qualifiers: Atrial fibrillation type: longstanding persistent Qualified Code(s): I48.11 - Longstanding persistent atrial fibrillation (7) Hx of acquired congestive heart failure Problem: Chronic Date of Discharge:: 04/05/19 Hospital Course: On admission to the emergency room the patient was given supplemental nasal oxygen, 1 IV dose of Solu-Medrol, and 1 oral dose of levofloxacin plus nebulized albuterol. This resulted in significant improvement. He was still short of breath however and still wheezing. Also he had a difficult time keeping his O2 saturation above 89% on room air. By last evening he was already much better. He was less short of breath and was not coughing much. His wheezing had improved. By this morning he is almost entirely back to normal. He walked in the halls last night without oxygen and did well. He has had no chest pain. His wheezing is almost completely gone. His vitals have been stable. Through the night with his CPAP his O2 sats were running generally in the mid 90s. Earlier this morning his first O2 sat was 90% on room air. I discussed the discharge plan with him and answered any questions. He already has an appointment this coming Tuesday which he should keep. Prognosis is very good. His sugars have been ranging in the low to mid 200s, most likely because of the Solu-Medrol. Her plan for that will be to allow his sugar to return to normal once he has completed his outpatient course of prednisone. Procedures Performed: none Results and Findings: Lab Pending Results 04/04/19 10:15: WBC 6.2, RBC 4.03 L, Hgb 11.5 L, Hct 36.4 L, MCV 90.3, MCH 28.5, MCHC 31.6 L, RDW 13.4, Plt Count 140 L, MPV 10.1, Immature Gran % (Auto) 0.50 H, Immature Gran # (Auto) 0.03, Neutrophils % 80.0 H, Lymphocytes % 7.8 L, Monocytes % 10.2 H, Eosinophils % 1.0, Basophils % 0.5, Nucleated RBC % 0.0, Neutrophils # 5.0, Lymphocytes # 0.48 L, Monocytes # 0.6, Eosinophils # 0.1, Absolute Basophils 0.0 04/04/19 10:15: PT 23.1 H, INR (Anticoag Therapy) 2.41 H, PTT (Mary Grace) 38.3 H 04/04/19 10:15: Sodium 140, Plasma Sodium 141, Potassium 3.7, Chloride 102, Carbon Dioxide 28.7, Anion Gap 13.0, BUN 18, Creatinine 0.87, Est GFR (Non-Af Amer) 90, BUN/Creatinine Ratio 20.7, Random Glucose 173 H, Calcium 8.5, Calcium Adj for Albumin 8.5, Total Bilirubin 0.4, AST 15, ALT 9 L, Alkaline Phosphatase 86, Troponin I Less than 0.017, Total Protein 7.0, Albumin 3.6 04/04/19 10:15: B-Natriuretic Peptide 1072 H He is morning lab work results are still pending. If they are significantly abnormal, we will contact the patient. Discharge Location: Home Disposition: Home self-care Condition: Good Discharge Activity: Activity as tolerated Discharge Diet: Consistent carbs - Consistent carb plus low-salt diet, Low salt Referrals: Kenny Uribe MD [Primary Care Provider] - Additional Patient Instructions (free text): Please call if you have problems or questions. Otherwise, please keep your follow-up appointment this coming Tuesday. Complete Home Medications List: Complete Home Medication List: Multivitamin [One Daily Essential] 1 ea PO DAILY 02/14/16 Nitroglycerin [Nitrostat] 0.4 mg SL Q5MIN PRN 07/08/16 Acetaminophen [Tylenol] 650 mg PO Q6H PRN 09/04/16 Ammonium Lactate [Lac-Hydrin] 1 appl TP DAILY 09/04/16 Docusate Sodium [Stool Softener] 100 mg PO DAILY 11/14/16 aspirin 81 mg tablet,delayed release 81 mg PO DAILY 11/09/17 Albuterol Sulfate [Albuterol Sulfate 2.5 MG/0.5ML] 2.5 mg INHALATION Q4H PRN vial.neb 03/20/18 Dental Adhesive [Fixodent Denture Adhesive] 1 appl TOPICAL PRN PRN tube 03/20/18 budesonide-formoterol HFA 160 mcg-4.5 mcg/actuation aerosol inhaler 2 puff IH BID #10.2 g 03/29/18 tamsulosin 0.4 mg capsule 0.8 mg PO DAILY #180 cap 07/25/18 glipizide 5 mg tablet 10 mg PO BIDAC #360 tab 08/28/18 rosuvastatin 10 mg tablet 10 mg PO HS #90 tab 10/12/18 Enalapril Maleate [Vasotec] 5 mg PO HS 11/21/18 metformin 500 mg tablet,extended release 24 hr 500 mg PO HS #30 tab 11/28/18 clonazepam 1 mg tablet 1 mg PO HS #90 tab 01/15/19 Furosemide [Lasix] 40 mg PO DAILY 04/04/19 Isosorbide Mononitrate [Imdur] 30 mg PO DAILY 04/04/19 Lansoprazole 30 mg PO BID 04/04/19 Potassium Chloride [Klor-Con M10] 10 meq PO DAILY 04/04/19 Warfarin Sodium 6 mg PO SUTUTHFR 04/04/19 Warfarin Sodium [Coumadin] 7 mg PO SUTUTHSA 04/04/19 Famotidine [Pepcid] 20 mg PO HS #30 tab 04/05/19 Levofloxacin [Levaquin] 500 mg PO DAILY #5 tab 04/05/19 predniSONE [Prednisone] 3 tab PO BID #30 tab 04/05/19
[2019-04-05] MEDS: FAMOTIDINE 20 MG TABLET PO SCH (08:30)
[2019-04-05] MEDS: AMMONIUM LACTATE 225 APPL BTL TP SCH (08:32)
[2019-04-05] MEDS ORDERED: MULTIVITAMINS 1 CAP CAPSULE PO SCH (09:00)
[2019-04-05] MEDS ORDERED: FUROSEMIDE 20 MG TABLET PO SCH (09:00)
[2019-04-05] MEDS ORDERED: DOCUSATE SODIUM 100 MG CAPSULE PO SCH (09:00)
[2019-04-05] MEDS ORDERED: METHYLPREDNISOLONE SOD SUCC/PF 40 MG/ML VIAL IV SCH (09:00)
[2019-04-05] MEDS ORDERED: ASPIRIN 81 MG TABLET.DR PO SCH (09:00)
[2019-04-05] MEDS ORDERED: ISOSORBIDE MONONITRATE 30 MG TAB.SR.24H PO SCH (09:00)
[2019-04-05] MEDS ORDERED: POTASSIUM CHLORIDE 20 MEQ TABLET.SA PO SCH (09:00)
[2019-04-05] MEDS ORDERED: ENALAPRIL MALEATE 5 MG TABLET PO SCH (09:00)
[2019-04-05 09:56] VITALS: BP 150/74
== END 2019-04-05 09:20 | disposition home or self-care (01) ==
LOC: ER 09:52 → MS 09:52
PROVIDERS: ADMIT Allergy & Immunology; ATTEND Allergy & Immunology
CPT/HCPCS: 36415; 71020; 71046; 80048; 80053; 83519; 83880; 84484; 85025; 85610; 85730; 93005; 94640; 94660; 94664; 96374; 96375; 99285; G0378